=== PATIENT | male | born 1935 | race Caucasian/White ===

== ENCOUNTER 2016-11-08 06:47 | Day surgery (SDC) | payer MEDICARE, BC ==
[2016-11-08] MEDS ORDERED: Povidone-Iodine 5% Sterile Ophth Soln 30 ML Bottle EYELF ONE ×2 (07:00→08:19)
[2016-11-08] MEDS ORDERED: Proparacaine 0.5% Ophth Soln 15 ML Bottle EYELF ONE (07:00)
[2016-11-08] MEDS ORDERED: Ondansetron 4 MG/2 ML SDV IVPUSH PRN (07:00)
[2016-11-08] MEDS ORDERED: Cataract Ophth Solution EYELF ONE (07:00)
[2016-11-08] MEDS ORDERED: Sodium Chloride 0.9% 10 ML Syringe FLUSH PRN (07:00)
[2016-11-08] MEDS ORDERED: Phenylephrine 10% Ophth Soln 5 ML Bot EYELF ONE (07:00)
[2016-11-08] MEDS ORDERED: Timolol Maleate 0.5% Ophth Soln 5 ML Bottle EYELF ONE (07:00)
[2016-11-08] MEDS ORDERED: Acetaminophen 325 MG Tab PO PRN (07:00)
[2016-11-08] MEDS ORDERED: Phenylephrine 10% Ophth Soln 5 ML Bot EYELF PRN (07:00)
[2016-11-08] MEDS ORDERED: Moxifloxacin 0.5% Ophth Soln 3 ML Bottle EYELF ONE (07:00)
[2016-11-08] MEDS ORDERED: Dexamethasone 4 MG/ML SDV ONE (07:11)
[2016-11-08] MEDS ORDERED: Midazolam 1 MG/ML 2 ML SDV ONE (07:11)
[2016-11-08] MEDS ORDERED: Tetracaine HCl/PF 0.5% 4 ML Bottle EYELF ONE (08:19)
[2016-11-08] MEDS ORDERED: Dexamethasone/Neomycin/Polymyxin B Ophth Oint 3.5 GM Tube EYELF ONE (08:19)
[2016-11-08] MEDS ORDERED: Lidocaine 1% 30 ML SDV ONE (08:20)
[2016-11-08] MEDS ORDERED: Chondroitin Sulfate/Hyaluronate Sodium Ophth Inj 0.75 ML Syringe EYELF ONE (08:20)
[2016-11-08] MEDS ORDERED: Apraclonidine 0.5% Ophth Soln 5 ML Bot EYELF ONE (08:20)
[2016-11-08] MEDS ORDERED: Vancomycin 500 MG SDV EYELF ONE (08:21)
[2016-11-08] MEDS ORDERED: Balanced Salt Solution Ophth Irrig 500 ML Bottle IOCULAR ONE (08:21)
--- NOTE | 2016-11-08 10:33 | OR ---
DATE: 11/08/2016 PREOPERATIVE DIAGNOSES: Complex cataract, left eye. Small pupil, Malyugin ring. PREOPERATIVE DIAGNOSES: Complex cataract, left eye. Small pupil, Malyugin ring. INDICATION: Mr. Angela was seen in the clinic with complaints of blurred vision. Clinical examination revealed visually significant cataract. He has difficulty reading and difficulty with bright lights and glare. I explained options. I offered cataract surgery, and I explained risks preoperatively including the potential for infection, retinal detachment, loss of vision, need for additional surgery, and risks associated with anesthesia. He is symptomatic and requested surgery. He requested a monofocal implant. OPERATIVE DESCRIPTION: After informed consent was obtained. The risks, benefits, and alternatives were explained, the patient was brought to the OR and topical anesthesia was administered. He was prepped and draped in a sterile fashion. Attention was placed on the left eye. A sterile lid speculum was placed into the left eye to allow operative exposure. A full-thickness paracentesis was then made temporally. Preservative-free lidocaine followed by viscoelastic was injected into the anterior chamber. A 2.75 mm incision was then made temporally. Pupil was noted to be small, approximately 4 mm. Malyugin ring was inserted to expand the pupil to approximately 6 mm. Bent needle cystotome was then used to create a small gianna in the anterior capsule. A 360 degree curvilinear capsulorrhexis was created. Nucleus was hydrodissected, hydrodelineated, decompressed centrally, rotated and noted to be free of any adhesions. The nucleus was then removed using a quick chop technique at the iris plane. Following the nucleus removal, the remaining cortical material was removed using the I and A handpiece. Additional viscoelastic was injected into the capsular bag. The intra-ocular lens was inserted. The Malyugin ring was then removed. The remaining viscoelastic was then aspirated from both the anterior and posterior chamber. Wound and paracentesis sites were hydrated using balanced saline solution. A 0.1 mL of preservative-free vancomycin was injected intracamerally. Intra-ocular lens was inspected and noted to be clear and well-centered. Good red reflex was noted. Intra-ocular pressure was assessed and found to be in the high normal range. Wound and paracentesis sites were Luther negative. Postoperative medications were administered. Sterile patch and shield was placed over the eye. Patient was awakened from light sedation and transported to the postoperative recovery area having tolerated the procedure well. No complications occurred. [facility] /[id number]
[2016-11-08 11:13] VITALS: BP 131/75
== END 2016-11-08 09:24 | disposition home or self-care (01) ==
LOC: DL.SDS 06:47
PROVIDERS: ATTEND Ophthalmology
DX: H26.9 Unspecified cataract (principal); Z88.8 Allergy status to other drugs, medicaments and biological substances; Z98.890 Other specified postprocedural states; Z96.641 Presence of right artificial hip joint; Z79.899 Other long term (current) drug therapy; Z87.891 Personal history of nicotine dependence
CPT/HCPCS: 66984; A9270; C1780; J3370; J7050; 00142

== ENCOUNTER 2016-11-13 09:35 | Emergency (ER) | payer MEDICARE, BC ==
--- NOTE | 2016-11-13 09:43 | EDM.PDOC ---
ED HPI Trauma - General Chief Complaint: Lower Extremity Injury/Pain Stated Complaint: [id number] FELL ON CEMENT BROKE HIP? Time Seen by Provider: 11/13/16 09:38 Source: Reports: Patient, Old records, RN, RN notes reviewed History Limitations: Reports: No limitations - History of Present Illness INITIAL COMMENTS - FREE TEXT/NARRATIVE: Arrives from home by POV with c/o right hip pain sustained last night from a ground level fall. Pt tripped and lost his balance. He denies lightheadedness or syncope. Denies any other injury. Pt ambulated into the hospital/ED dept. but reports hip pain is worse with wt bearing. Pain is partially relieved with rest. Rates pain 6/10. Pt took a hydrocodone this morning and got some relief. Denies head injury, or any other injury. Symptom Onset Date: 11/12/16 Occurred When: yesterday Occurred Where: home Method of Injury: fall Severity: moderate Pain/Injury Location: Reports: lower extremity, right Consciousness: Reports: no loss of consciousness, remembers incident Associated Symptoms: Reports: no other symptoms Allergies/ADRs: Allergies lorazepam [From Ativan] Allergy (Verified 11/08/16 07:16) Confusion morphine Allergy (Verified 11/08/16 07:16) Confusion oxybutynin Allergy (Verified 11/08/16 07:16) Cannot Remember Home Medications: Ambulatory Orders Omeprazole [Prilosec] 20 mg PO DAILY 10/03/13 [Confirmed 11/08/16] Simvastatin [Zocor] 40 mg PO BEDTIME 10/03/13 [Confirmed 11/08/16] Tamsulosin [Flomax] 0.4 mg PO DAILY 10/03/13 [Confirmed 11/08/16] Bicalutamide [Casodex] 1 tab PO DAILY 08/17/15 [Confirmed 11/08/16] Docusate Sodium/Sennosides [Senna Plus] 2 tab PO BEDTIME #30 tablet 08/18/15 [ Confirmed 11/08/16] Acetaminophen/HYDROcodone [[place] 325-10 MG] 1 tab PO Q6H PRN 11/07/16 [ Confirmed 11/08/16] Escitalopram Oxalate [Lexapro] 1 tab PO DAILY 11/07/16 [Confirmed 11/08/16] Vhdq-[id number]-[id number] [Cataract Opthalmic Solution] 1 drop EYELF QID 11/07/16 [ Confirmed 11/08/16] Ciprofloxacin HCl [Cipro] 1 tab PO BID 11/08/16 [Confirmed 11/08/16] Past Medical History HEENT History: Reports: Cataract, Impaired vision, Other (see below) Other HEENT History: wears glasses Cardiovascular History: Reports: High cholesterol Respiratory History: Reports: None Gastrointestinal History: Reports: Chronic constipation, GERD Genitourinary History: Reports: BPH, UTI, recurrent, Other (see below) Other Genitourinary History: dilalation of urethra Musculoskeletal History: Reports: Back pain, chronic, Fracture Other Musculoskeletal History: left femur surgery Neurological History: Reports: None Psychiatric History: Reports: Depression Endocrine/Metabolic History: Reports: None Hematologic History: Reports: None Immunologic History: Reports: None Oncologic (Cancer) History: Reports: Prostate Dermatologic History: Reports: None - Infectious Disease History Infectious Disease History: Reports: Chicken pox, Measles, Mumps, Other (see below) - Past Surgical History Head Surgeries/Procedures: Reports: None HEENT Surgical History: Reports: None Cardiovascular Surgical History: Reports: None GI Surgical History: Reports: Colonoscopy Other Male Surgeries/Procedures: prostate problems Musculoskeletal Surgical History: Reports: Other (see below) Other Musculoskeletal Surgeries/Procedures:: back surg, R) hip joint replacement Social & Family History - Family History Family Medical History: Noncontributory Other Hematologic Family History: mother of cerebral aneurysm - Tobacco Use Smoking Status *Q: Former Smoker Years of Tobacco use: 20 Packs/Tins Daily: 0.5 Used Tobacco, but Quit: Yes Month Tobacco Last Used: when he was 41 years old Second Hand Smoke Exposure: No - Caffeine Use Caffeine Use: Reports: Coffee, Soda - Alcohol Use Days Per Week of Alcohol Use: 0 - Recreational Drug Use Recreational Drug Use: No - Living Situation & Occupation Occupation: retired Review of Systems - Review of Systems Review Of Systems: ROS reveals no pertinent complaints other than HPI. Trauma Exam - Physical Exam Exam: See Below Exam Limited By: No limitations General Appearance: Reports: alert, WD/WN, no apparent distress Head: Reports: atraumatic, normocephalic Ears: Reports: normal external exam, hearing grossly normal Nose: Reports: normal inspection Throat/Mouth: Reports: Normal voice, No airway compromise Neck: Reports: non-tender, full range of motion, normal alignment, normal inspection Respiratory Exam: Reports: no respiratory distress, lungs clear, normal breath sounds, no accessory muscle use, chest non-tender Cardiovascular: Reports: regular rate, rhythm GI/Abdominal: Reports: normal bowel sounds, soft, non tender, no distention (Male) Exam: Deferred Rectal (Males) Exam: Deferred Back: Reports: decreased range of motion (chronic/stable per pt.). Denies: CVA tenderness (R), CVA tenderness (L), paraspinal tenderness, vertebral tenderness Extremities: Reports: pelvis stable, pain with movement, tenderness (to palpation at Rt lateral hip region, no visible bruising or swelling; skin is intact.), other (able to bear wt). 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, no motor/sensory deficits, alert , normal mood/affect, oriented x 3 Skin: Reports: Normal color, Warm/dry - [place] Coma Score Best Eye Response ([place]): (4) open spontaneously Best Verbal Response ([place]): (5) oriented Best Motor Response ([place]): (6) obeys commands [place] Total: 15 Course - Vital Signs Last Recorded V/S: Last Vital Signs Temp 36.1 C 11/13/16 09:46 Pulse 76 11/13/16 09:46 Resp 16 11/13/16 09:46 BP 129/88 11/13/16 09:46 Pulse Ox 96 11/13/16 09:46 - Orders/Labs/Meds Orders: Active Orders 24 hr Category Date Time Status Hip Min 2V or 3V w Pelvis Rt [CR] Stat Exams 11/13/16 09:48 Ordered - Radiology Interpretation Free Text/Narrative:: Xray Rt hip & pelvis: no acute fractures, prosthetic Rt hip; see Rad. report. Departure - Departure Time of Disposition: 10:03 Disposition: Home, Self-Care 01 Condition: good Clinical Impression: Fall as cause of accidental injury at home as place of occurrence Contusion of right hip Qualifiers: Encounter type: initial encounter Qualified Code(s): S70.01XA - Contusion of right hip, initial encounter Instructions: Hip Pointer, Nasc-td-Iqqq, Hip Pain Forms: ED Department Discharge Additional Instructions: Activity as tolerated. Rest, and use ice packs to area of right hip pain. Follow up in clinic with your doctor if not improving in 7 to 10 days. - My Orders Last 24 Hours: My Active Orders 11/13/16 09:48 Hip Min 2V or 3V w Pelvis Rt [CR] Stat - Assessment/Plan Last 24 Hours: My Active Orders 11/13/16 09:48 Hip Min 2V or 3V w Pelvis Rt [CR] Stat
[2016-11-13 09:48] VITALS: BP 129/88
--- NOTE | 2016-11-13 11:49 | CR ---
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 Femoral and acetabular components of the total prosth esis satisfactorily "seated". No sign of acute pelvic or either hip fracture/dislocation.
== END 2016-11-13 10:10 | disposition home or self-care (01) ==
LOC: DL.ED 09:35
DX: S70.01XA Contusion of right hip, initial encounter (principal); E78.00 Pure hypercholesterolemia, unspecified; F32.9 Major depressive disorder, single episode, unspecified; Z87.440 Personal history of urinary (tract) infections; Z88.5 Allergy status to narcotic agent; Z88.8 Allergy status to other drugs, medicaments and biological substances; Z96.641 Presence of right artificial hip joint; Z87.891 Personal history of nicotine dependence; W01.0XXA Fall on same level from slipping, tripping and stumbling without subsequent striking against object, initial encounter; Y92.009 Unspecified place in unspecified non-institutional (private) residence as the place of occurrence of the external cause
CPT/HCPCS: 99282; 99283

== ENCOUNTER 2016-11-29 08:11 | Day surgery (SDC) | payer MEDICARE, BC ==
[2016-11-29] MEDS ORDERED: Phenylephrine 10% Ophth Soln 5 ML Bot EYERT ONE (08:30)
[2016-11-29] MEDS ORDERED: Cataract Ophth Solution EYERT ONE (08:30)
[2016-11-29] MEDS ORDERED: Acetaminophen 325 MG Tab PO PRN (08:30)
[2016-11-29] MEDS ORDERED: Timolol Maleate 0.5% Ophth Soln 5 ML Bottle EYERT ONE (08:30)
[2016-11-29] MEDS ORDERED: Proparacaine 0.5% Ophth Soln 15 ML Bottle EYERT ONE (08:30)
[2016-11-29] MEDS ORDERED: Sodium Chloride 0.9% 10 ML Syringe FLUSH PRN (08:30)
[2016-11-29] MEDS ORDERED: Ondansetron 4 MG/2 ML SDV IVPUSH PRN (08:30)
[2016-11-29] MEDS ORDERED: Moxifloxacin 0.5% Ophth Soln 3 ML Bottle EYERT ONE (08:30)
[2016-11-29] MEDS ORDERED: Phenylephrine 10% Ophth Soln 5 ML Bot EYERT PRN (08:30)
[2016-11-29] MEDS ORDERED: Povidone-Iodine 5% Sterile Ophth Soln 30 ML Bottle EYERT ONE ×2 (08:30→09:56)
[2016-11-29] MEDS ORDERED: Midazolam 1 MG/ML 2 ML SDV ONE (09:33)
[2016-11-29] MEDS ORDERED: Dexamethasone 4 MG/ML SDV ONE (09:33)
[2016-11-29] MEDS ORDERED: Dexamethasone/Neomycin/Polymyxin B Ophth Oint 3.5 GM Tube EYERT ONE (09:56)
[2016-11-29] MEDS ORDERED: Apraclonidine 0.5% Ophth Soln 5 ML Bot EYERT ONE (09:56)
[2016-11-29] MEDS ORDERED: Tetracaine HCl/PF 0.5% 4 ML Bottle EYERT ONE (09:57)
[2016-11-29] MEDS ORDERED: Balanced Salt Solution Ophth Irrig 500 ML Bottle IOCULAR ONE (09:57)
[2016-11-29] MEDS ORDERED: Lidocaine 1% 30 ML SDV ONE (09:57)
[2016-11-29] MEDS ORDERED: Diclofenac Sodium 0.1% Ophth Soln 5 ML Bottle EYERT ONE (09:57)
[2016-11-29] MEDS ORDERED: Chondroitin Sulfate/Hyaluronate Sodium Ophth Inj 0.75 ML Syringe EYERT ONE (09:58)
[2016-11-29] MEDS ORDERED: Vancomycin 500 MG SDV EYERT ONE (09:58)
--- NOTE | 2016-11-29 11:18 | OR ---
DATE: 11/29/2016 PREOPERATIVE DIAGNOSIS: Cataract, right eye. POSTOPERATIVE DIAGNOSIS: Cataract, right eye. PROCEDURE: Extracapsular cataract extraction with intraocular lens implant, right eye. ANESTHESIA: Topical/local MAC. COMPLICATIONS: None. INDICATION: Mr. Angela was seen in the clinic. He has complained of difficulty reading, difficulty with fine with bright lights, difficulty with glare. Clinical examination reveals visually significant mixed cataract. I explained options. I offered cataract surgery and I explained risks including but not limited to, infection, retinal detachment, loss of vision, need for additional surgery, and risks associated with anesthesia. We discussed implant options. He requested a monofocal implant. OPERATIVE DESCRIPTION: After informed consent was obtained and the risks, benefits, and alternatives were explained, the patient was brought to the operative suite and topical anesthesia was administered. The patient was then prepped and draped in the sterile fashion and attention was placed on the right eye. A sterile lid speculum was placed into the right eye to allow operative exposure. A full-thickness paracentesis was made in the temporal portion of the operative eye. Preservative-free lidocaine 0.1 mL was injected into the anterior chamber followed by viscoelastic. A full-thickness corneal incision was then made into the anterior chamber. A bent needle cystotome was used to create a small gianna in the anterior capsule. The capsulorrhexis forceps was then used to create a 360-degree curvilinear capsulorrhexis. The nucleus was then removed using a phacoemulsification handpiece and the remaining cortical material was then removed with irrigation and aspiration handpiece. Following removal of the cortical material, the capsular bag was then inspected and noted to be free of any holes or tears. Viscoelastic was then injected into the capsular bag and the intraocular lens was inserted into the capsular bag. No complications occurred. The viscoelastic material was then removed from both the anterior and posterior chambers and from behind the IOL. The lens and capsular bag were then reinspected. The IOL was well centered and the capsular bag intact. The wound and paracentesis sites were inspected and hydrated with balanced saline solution. Both were found to be self-sealing. The intraocular pressure was assessed digitally and found to be within normal range. A good red reflex was noted at the completion of the procedure. No complications occurred during the operation. At the completion of the procedure, Maxitrol, Voltaren, and Iopidine drops were placed into the operative eye. A sterile eye shield was placed over the operative eye and the patient was transported to the postoperative recovery area having tolerated the procedure well. Postoperative instructions were given along with a postoperative appointment. The patient was advised to call with any questions or concerns. [facility] /[id number]
[2016-11-29 13:11] VITALS: BP 178/82
[2016-11-29] MEDS ORDERED: Dexamethasone 4 MG/ML SDV IV ONE (13:19)
[2016-11-29] MEDS ORDERED: Midazolam 1 MG/ML 2 ML SDV IV ONE (13:19)
--- NOTE | 2016-11-30 08:00 | OR ---
DATE: 11/29/2016 PREOPERATIVE DIAGNOSIS: Visually significant cataract, right eye. POSTOPERATIVE DIAGNOSIS: Visually significant cataract, right eye. PROCEDURE: Complex cataract right eye with small pupil, Malyugin ring. INDICATION: Mr. Angela was seen in the clinic. Clinical examination revealed visually significant cataract. I explained options. I offered cataract surgery, and I explained risks preoperatively including but not limited to, infection, retinal detachment, loss of vision, need for additional surgery, and risks associated with anesthesia. We discussed implant options. He requested a monofocal implant. OPERATIVE DESCRIPTION: After informed consent was obtained. The risks, benefits, and alternatives were explained, the patient was brought to the OR and topical anesthesia was administered. He was prepped and draped in a sterile fashion. Attention was placed on the right eye. A sterile lid speculum was placed into the right eye to allow operative exposure. A full-thickness paracentesis was then made temporally. Preservative-free lidocaine followed by viscoelastic was injected into the anterior chamber. A 2.75 mm corneal incision was then made temporally. The pupil was noted to be small, Malyugin ring was inserted to expand the pupil to approximately 5.5 mm. Bent needle cystotome was then used to create a small gianna in the anterior capsule. A 5 mm curvilinear capsulorrhexis was created. Nucleus was then hydrodissected and hydrodelineated. Nucleus was decompressed centrally and rotated, noted to be free of any adhesions. Nucleus was then removed using the phacoemulsification handpiece in a quick chop technique. Remaining cortical material was removed using the irrigation, aspiration handpiece. Additional viscoelastic was injected into the capsular bag. The intraocular lens was inserted. The Malyugin ring was then removed. The remaining viscoelastic was then aspirated from both the anterior and posterior chamber. Wound and paracentesis sites were hydrated. A 0.1 mL of preservative-free vancomycin was injected intracamerally. Intra-ocular lens was inspected and noted to be clear and well-centered. Good red reflex was noted. Wound and paracentesis sites were Luther negative. Intra- ocular pressure was assessed digitally and found to be in the high normal range. Postoperative medications were administered. Sterile patch and shield was placed over the eye. The patient was awakened from light sedation and transported to the postoperative recovery area having tolerated the procedure well. No complications occurred. [facility] /[id number]
== END 2016-11-29 11:10 | disposition home or self-care (01) ==
LOC: DL.SDS 08:11
PROVIDERS: ATTEND Ophthalmology
DX: H26.9 Unspecified cataract (principal); Z88.8 Allergy status to other drugs, medicaments and biological substances; Z98.890 Other specified postprocedural states; Z96.641 Presence of right artificial hip joint; Z87.891 Personal history of nicotine dependence
CPT/HCPCS: 00142; 66984; A9270; J1100; J2250; J3370; J7050; C1780

== ENCOUNTER 2017-02-06 10:52 | Emergency (ER) | payer MEDICARE, BC ==
--- NOTE | 2017-02-06 11:56 | EDM.PDOC ---
ED HPI GENERAL MEDICAL PROBLEM - General Chief Complaint: General Stated Complaint: CAN'T PEE OR ANYTHING Time Seen by Provider: 02/06/17 11:35 Source of Information: Reports: Patient History Limitations: Reports: No Limitations - History of Present Illness INITIAL COMMENTS - FREE TEXT/NARRATIVE: This 81 yo male patient reports to the ED with continued and increased pelvic pain. The patient reports his pain got much worse today. The patient has been seen by several providers for similar symptoms. The patient is seeing Dr. Martinez, Mia Marte, JUANA and a urologist for these symptoms in the past. The patient reports he has not been able to urinate in the past hour. The patient reports some frustration with his continuing symptoms. The patient reports he started on Oxycontin last week and was started on Augmentin yesterday due to urinalysis results. Onset: Today Onset Date: 02/06/17 Onset Time: 06:00 Duration: Hour(s):, Constant Location: Reports: Abdomen, Pelvis Quality: Reports: Ache, Sharp Severity: Severe Improves with: Reports: None Worsens with: Reports: None Associated Symptoms: Reports: No Other Symptoms Left Pelvic Pain Score (Numeric/FACES): 5 - Related Data Allergies Allergy/AdvReac Type Severity Reaction Status Date / Time lorazepam [From Ativan] Allergy Confusion Verified 11/29/16 09:06 morphine Allergy Confusion Verified 11/29/16 09:06 oxybutynin Allergy Cannot Verified 11/29/16 09:06 Remember Home Meds: Home Meds Omeprazole [Prilosec] 20 mg PO DAILY 10/03/13 [History] Simvastatin [Zocor] 40 mg PO BEDTIME 10/03/13 [History] Tamsulosin [Flomax] 0.4 mg PO BEDTIME 10/03/13 [History] Bicalutamide [Casodex] 1 tab PO DAILY 08/17/15 [History] Docusate Sodium/Sennosides [Senna Plus] 2 tab PO BEDTIME #30 tablet 08/18/15 [Rx ] Escitalopram Oxalate [Lexapro] 1 tab PO DAILY 11/07/16 [History] Qsjs-Ufqr-Kmamh [Cataract Opthalmic Solution] 1 drop EYELF QID 11/07/16 [History ] Hydrocodone/Acetaminophen [[place] 5-325 Tablet] 1 each PO Q6HR PRN 11/28/16 [ History] Sulfamethoxazole/Trimethoprim [Sulfamethoxazole-Tmp Ds Tablet] 1 tab PO BID [History] Past Medical History HEENT History: Reports: Cataract, Impaired Vision, Other (See Below) Other HEENT History: wears glasses Cardiovascular History: Reports: High Cholesterol Respiratory History: Reports: None Gastrointestinal History: Reports: Chronic Constipation, GERD Genitourinary History: Reports: BPH, UTI, Recurrent, Other (See Below) Other Genitourinary History: dilalation of urethra Musculoskeletal History: Reports: Back Pain, Chronic, Fracture Other Musculoskeletal History: left femur surgery Neurological History: Reports: None Psychiatric History: Reports: Depression Endocrine/Metabolic History: Reports: None Hematologic History: Reports: None Immunologic History: Reports: None Oncologic (Cancer) History: Reports: Prostate Dermatologic History: Reports: None - Infectious Disease History Infectious Disease History: Reports: Chicken Pox, Measles, Mumps, Other (See Below) - Past Surgical History Head Surgeries/Procedures: Reports: None HEENT Surgical History: Reports: None, Cataract Surgery Cardiovascular Surgical History: Reports: None GI Surgical History: Reports: Colonoscopy Other Male Surgeries/Procedures: prostate problems Musculoskeletal Surgical History: Reports: Other (See Below) Other Musculoskeletal Surgeries/Procedures:: back surg, R) hip joint replacement Social & Family History - Family History Family Medical History: Noncontributory Other Hematologic Family History: mother of cerebral aneurysm - Tobacco Use Smoking Status *Q: Never Smoker Years of Tobacco use: 20 Packs/Tins Daily: 0.5 Used Tobacco, but Quit: Yes Month Tobacco Last Used: when he was 41 years old Second Hand Smoke Exposure: No - Caffeine Use Caffeine Use: Reports: Coffee, Tea - Alcohol Use Days Per Week of Alcohol Use: 0 - Recreational Drug Use Recreational Drug Use: No - Living Situation & Occupation Occupation: Retired ED ROS GENERAL - Review of Systems Review Of Systems: ROS reveals no pertinent complaints other than HPI. ED EXAM, GENERAL - Physical Exam Exam: See Below Exam Limited By: No Limitations General Appearance: Alert, WD/WN, No Apparent Distress Eye Exam: Bilateral Eye: EOMI, Normal Inspection, PERRL Ears: Normal External Exam, Normal Canal, Hearing Grossly Normal, Normal TMs Nose: Normal Inspection, Normal Mucosa, No Blood Throat/Mouth: Normal Inspection, Normal Lips, Normal Teeth, Normal Gums, Normal Oropharynx, Normal Voice, No Airway Compromise Head: Atraumatic, Normocephalic Neck: Normal Inspection, Supple, Non-Tender, Full Range of Motion Respiratory/Chest: No Respiratory Distress, Lungs Clear, Normal Breath Sounds, No Accessory Muscle Use, Chest Non-Tender Cardiovascular: Normal Peripheral Pulses, Regular Rate, Rhythm, No Edema, No Gallop, No JVD, No Murmur, No Rub GI/Abdominal: Normal Bowel Sounds, Tender (lower abdomen) (Male) Exam: Deferred Rectal (Males) Exam: Deferred Back Exam: Normal Inspection, Full Range of Motion, NT Extremities: Other (the patient has diffuse pelvic pain) Neurological: Alert, Oriented, CN II-XII Intact, Abnormal Gait Psychiatric: Anxious, Depressed Mood Skin Exam: Warm, Dry, Intact, Normal Color, No Rash Lymphatic: No Adenopathy Course - Vital Signs Last Recorded V/S: Last Vital Signs Temp 36.4 C 02/06/17 11:26 Pulse 88 02/06/17 13:02 Resp 18 02/06/17 13:02 BP 119/72 02/06/17 13:02 Pulse Ox 98 02/06/17 13:02 Departure - Departure Time of Disposition: 13:25 Disposition: Home, Self-Care 01 Condition: Fair Clinical Impression: UTI (urinary tract infection) Qualifiers: Urinary tract infection type: acute cystitis Hematuria presence: without hematuria Qualified Code(s): N30.00 - Acute cystitis without hematuria - Discharge Information Instructions: Urinary Tract Infection, Adult Forms: ED Department Discharge Care Plan Goals: The patient and family were advised of the ultrasound results during the visit. The patient was encouraged to continue to take his Amoxicillin as prescribed. The patient has a follow-up appointment with Mia Marte on for continued evaluation and management. If the patient has any additional symptoms or concerns, the patient should either visit his primary care facility or return to the emergency department.
[2017-02-06 13:02] VITALS: BP 119/72
--- NOTE | 2017-02-06 13:14 | US ---
Clinical history: 81-year-old male with history of known prostate cancer (radiation seeds); complain ing of persistent lower abdominal and suprapubic pain; who "hasn't peed for one hour". Started antib iotic therapy yesterday for a "urinary tract infection". Recent radionuclide bone scan and MRI of pelvis reportedly "unremarkable". Urinary retention? Interpretation: Mild uniformly thickened bladder wall. Symmetrically distended, small volume, urinary bladder without sign mucosal wall mass or dependent i ntraluminal echogenic "shadowing" urinary bladder stone. Small 12 mm diameter diverticulum base of t he urinary bladder laterally, on the right. Normal ureteral "jets" identified bilaterally.
== END 2017-02-06 13:33 | disposition home or self-care (01) ==
LOC: DL.ED 10:52
DX: N30.00 Acute cystitis without hematuria (principal); E78.00 Pure hypercholesterolemia, unspecified; H54.7 Unspecified visual loss; K21.9 Gastro-esophageal reflux disease without esophagitis; F32.9 Major depressive disorder, single episode, unspecified; Z79.899 Other long term (current) drug therapy; Z88.5 Allergy status to narcotic agent; Z88.8 Allergy status to other drugs, medicaments and biological substances; Z98.49 Cataract extraction status, unspecified eye; Z87.440 Personal history of urinary (tract) infections
CPT/HCPCS: 76857; 99283

== ENCOUNTER 2017-02-12 10:35 | Inpatient (IN) | payer MEDICARE, BC ==
--- NOTE | 2017-02-12 11:07 | EDM.PDOC ---
ED HPI GENERAL MEDICAL PROBLEM - General Chief Complaint: Abdominal Pain Stated Complaint: CONFUSSED, DEHYDRATION, CAN HARDLY WALK Time Seen by Provider: 02/12/17 10:45 Source of Information: Reports: Patient, Family History Limitations: Reports: No Limitations - History of Present Illness INITIAL COMMENTS - FREE TEXT/NARRATIVE: This 81 yo male patient reports to the ED with continued pelvic pain. The patient reports he continues to have pain despite his recent changes in medications and treatments. The patient has been too weak to take care of himself. The patient reports he has pain in the posterior pelvic that wraps around to the front of his pelvis. The patient's family reports the patient has refused to take any of his medications other than his pain medications. The patient is currently being seen by Mia Marte ([facility] in [place]) , Dr. Youngblood ([facility] in [place]) and Dr. Curran (Oncology in [place]). The patient had a bone scan done 1 1/2 weeks ago which was read as normal by radiologist, but was read as abnormal by Dr. Curran. The patient has been seen numerous times in both the clinic and ED over the past 2 weeks. At this time, the patient's family reports that they do not think the patient can take care of himself due to both pain as well as with his progressive dementia. The family reports the patient is very confused (especially in the evenings). The patient's family reports that the patient was attempting to make phone calls with the TV remote and change the channel with the phone. The memory issues have not gotten any worse with the recent increase in pain medications. The patient and family are supposed to be looking at an assisted care center today, but the family does not think this will be enough care with his current condition. Onset: Gradual Duration: Week(s):, Constant, Getting Worse Location: Reports: Pelvis Quality: Reports: Ache, Sharp Severity: Severe Improves with: Reports: Medication (pain medication) Worsens with: Reports: Movement Context: Reports: Other Associated Symptoms: Reports: Confusion (especially in the evenings), Weakness Treatments DISEASE MANAGEMENT NURSE: Reports: Other Medication(s) Rectal Pain Score (Numeric/FACES): 5 - Related Data Allergies Allergy/AdvReac Type Severity Reaction Status Date / Time lorazepam [From Ativan] Allergy Confusion Verified 11/29/16 09:06 morphine Allergy Confusion Verified 11/29/16 09:06 oxybutynin Allergy Cannot Verified 11/29/16 09:06 Remember Home Meds: Home Meds Omeprazole [Prilosec] 20 mg PO DAILY 10/03/13 [History] Tamsulosin [Flomax] 0.4 mg PO BEDTIME 10/03/13 [History] Bicalutamide [Casodex] 1 tab PO DAILY 08/17/15 [History] Docusate Sodium/Sennosides [Senna Plus] 2 tab PO BEDTIME #30 tablet 08/18/15 [Rx ] Escitalopram Oxalate [Lexapro] 1 tab PO DAILY 11/07/16 [History] Hydrocodone/Acetaminophen [[place] 5-325 Tablet] 1 each PO Q6HR PRN 11/28/16 [ History] oxyCODONE HCl [Oxycontin] 1 tab PO BID 02/12/17 [History] Past Medical History HEENT History: Reports: Cataract, Impaired Vision, Other (See Below) Other HEENT History: wears glasses Cardiovascular History: Reports: High Cholesterol Respiratory History: Reports: None Gastrointestinal History: Reports: Chronic Constipation, GERD Genitourinary History: Reports: BPH, UTI, Recurrent, Other (See Below) Other Genitourinary History: dilalation of urethra Musculoskeletal History: Reports: Back Pain, Chronic, Fracture Other Musculoskeletal History: left femur surgery Neurological History: Reports: None Psychiatric History: Reports: Depression Endocrine/Metabolic History: Reports: None Hematologic History: Reports: None Immunologic History: Reports: None Oncologic (Cancer) History: Reports: Prostate Dermatologic History: Reports: None - Infectious Disease History Infectious Disease History: Reports: Chicken Pox, Measles, Mumps, Other (See Below) - Past Surgical History Head Surgeries/Procedures: Reports: None HEENT Surgical History: Reports: None, Cataract Surgery Cardiovascular Surgical History: Reports: None GI Surgical History: Reports: Colonoscopy Other Male Surgeries/Procedures: prostate problems Musculoskeletal Surgical History: Reports: Other (See Below) Other Musculoskeletal Surgeries/Procedures:: back surg, R) hip joint replacement Social & Family History - Family History Family Medical History: Noncontributory Other Hematologic Family History: mother of cerebral aneurysm - Tobacco Use Smoking Status *Q: Never Smoker Years of Tobacco use: 20 Packs/Tins Daily: 0.5 Used Tobacco, but Quit: Yes Month Tobacco Last Used: when he was 41 years old Second Hand Smoke Exposure: No - Caffeine Use Caffeine Use: Reports: Coffee, Tea - Alcohol Use Days Per Week of Alcohol Use: 0 - Recreational Drug Use Recreational Drug Use: No - Living Situation & Occupation Occupation: Retired ED ROS GENERAL - Review of Systems Review Of Systems: ROS reveals no pertinent complaints other than HPI. ED EXAM, GENERAL - Physical Exam Exam: See Below Exam Limited By: No Limitations General Appearance: Alert, WD/WN, Moderate Distress, Thin Eye Exam: Bilateral Eye: EOMI, Normal Inspection, PERRL Ears: Normal External Exam, Normal Canal, Hearing Grossly Normal, Normal TMs Nose: Normal Inspection, Normal Mucosa, No Blood Throat/Mouth: Normal Inspection, Normal Lips, Normal Teeth, Normal Gums, Normal Oropharynx, Normal Voice, No Airway Compromise Head: Atraumatic, Normocephalic Respiratory/Chest: No Respiratory Distress, Lungs Clear, Normal Breath Sounds, No Accessory Muscle Use, Chest Non-Tender Cardiovascular: Normal Peripheral Pulses, Regular Rate, Rhythm, No Edema, No Gallop, No JVD, No Murmur, No Rub GI/Abdominal: Normal Bowel Sounds, Soft, Tender (lower abdomen and pelvis) (Male) Exam: Deferred Rectal (Males) Exam: Deferred Back Exam: Normal Inspection, Full Range of Motion, NT Extremities: Normal Inspection, Normal Range of Motion, Non-Tender, Normal Capillary Refill, No Pedal Edema Neurological: Alert, Oriented, CN II-XII Intact, Normal Cognition, Normal Gait, Normal Reflexes, No Motor/Sensory Deficits Psychiatric: Normal Affect, Normal Mood Skin Exam: Warm, Dry, Intact, Normal Color, No Rash Lymphatic: No Adenopathy Course - Vital Signs Last Recorded V/S: Last Vital Signs Temp 36.9 C 02/12/17 12:07 Pulse 84 02/12/17 12:07 Resp 18 02/12/17 12:07 BP 140/56 L 02/12/17 12:07 Pulse Ox 91 L 02/12/17 12:07 - Orders/Labs/Meds Orders: Active Orders 24 hr Category Date Time Status CULTURE URINE [RM] Stat Lab 02/12/17 12:08 Ordered Labs: Laboratory Tests 02/12/17 02/12/17 02/12/17 Range/Units 11:04 11:04 11:04 WBC 11.2 H (5.0-10.0) 10^3/uL RBC 4.08 L (4.6-6.2) 10^6/uL Hgb 11.5 L (14.0-18.0) g/dL Hct 35.3 L (40.0-54.0) % MCV 86.5 (80-100) fL MCH 28.2 (27.0-34.0) pg MCHC 32.6 L (33.0-35.0) g/dL Plt Count 299 (150-450) 10^3/uL Neut % (Auto) 82.8 H (42.2-75.2) % Lymph % (Auto) 8.1 L (20.5-50.1) % [place] % (Auto) 7.3 (2-8) % Eos % (Auto) 1.5 (1.0-3.0) % Baso % (Auto) 0.3 (0.0-1.0) % Sodium 135 (135-145) mmol/L Potassium 4.0 (3.6-5.0) mmol/L Chloride 97 L (101-111) mmol/L Carbon Dioxide 25.0 (21.0-31.0) mmol/L Anion Gap 17.0 BUN 15 (7-18) mg/dL Creatinine 0.9 (0.6-1.3) mg/dL Est Cr Clr Drug Dosing 65.46 mL/min Estimated GFR (MDRD) > 60 BUN/Creatinine Ratio 16.66 Glucose 152 H (74-105) mg/dL Lactic Acid 1.1 (0.5-2.2) mmol/L Calcium 8.9 (8.4-10.2) mg/dl Magnesium 1.8 (1.8-2.5) mg/dL Total Bilirubin 0.9 (0.2-1.0) mg/dL AST 20 (10-42) IU/L ALT 23 (10-60) IU/L Alkaline Phosphatase 72 (42-121) IU/L Total Protein 7.1 (6.7-8.2) g/dl Albumin 2.6 L (3.2-5.5) g/dl Globulin 4.5 Albumin/Globulin Ratio 0.58 Urine Color (YELLOW) Urine Appearance (CLEAR) Urine pH (5.0-9.0) Ur Specific [place] (1.005-1.030) Urine Protein (NEGATIVE) Urine Glucose (UA) (NEGATIVE) Urine Ketones (NEGATIVE) Urine Occult Blood (NEGATIVE) Urine Nitrite (NEGATIVE) Urine Bilirubin (NEGATIVE) Urine Urobilinogen (0.2-1.0) mg/dL Ur Leukocyte Esterase (NEGATIVE) Urine RBC /HPF Urine WBC (0-5/HPF) /HPF Ur Epithelial Cells /HPF Amorphous Sediment (0/HPF) /HPF Urine Bacteria (0-FEW/HPF) /HPF Urine Mucus /LPF 02/12/17 Range/Units 11:07 WBC (5.0-10.0) 10^3/uL RBC (4.6-6.2) 10^6/uL Hgb (14.0-18.0) g/dL Hct (40.0-54.0) % MCV (80-100) fL MCH (27.0-34.0) pg MCHC (33.0-35.0) g/dL Plt Count (150-450) 10^3/uL Neut % (Auto) (42.2-75.2) % Lymph % (Auto) (20.5-50.1) % [place] % (Auto) (2-8) % Eos % (Auto) (1.0-3.0) % Baso % (Auto) (0.0-1.0) % Sodium (135-145) mmol/L Potassium (3.6-5.0) mmol/L Chloride (101-111) mmol/L Carbon Dioxide (21.0-31.0) mmol/L Anion Gap BUN (7-18) mg/dL Creatinine (0.6-1.3) mg/dL Est Cr Clr Drug Dosing mL/min Estimated GFR (MDRD) BUN/Creatinine Ratio Glucose (74-105) mg/dL Lactic Acid (0.5-2.2) mmol/L Calcium (8.4-10.2) mg/dl Magnesium (1.8-2.5) mg/dL Total Bilirubin (0.2-1.0) mg/dL AST (10-42) IU/L ALT (10-60) IU/L Alkaline Phosphatase (42-121) IU/L Total Protein (6.7-8.2) g/dl Albumin (3.2-5.5) g/dl Globulin Albumin/Globulin Ratio Urine Color Dark yellow (YELLOW) Urine Appearance Cloudy (CLEAR) Urine pH 7.0 (5.0-9.0) Ur Specific [place] 1.020 (1.005-1.030) Urine Protein 100 H (NEGATIVE) Urine Glucose (UA) Negative (NEGATIVE) Urine Ketones 15 H (NEGATIVE) Urine Occult Blood Large H (NEGATIVE) Urine Nitrite Negative (NEGATIVE) Urine Bilirubin Small H (NEGATIVE) Urine Urobilinogen 1.0 (0.2-1.0) mg/dL Ur Leukocyte Esterase Large H (NEGATIVE) Urine RBC 5-10 H /HPF Urine WBC >100 H (0-5/HPF) /HPF Ur Epithelial Cells Few /HPF Amorphous Sediment See note (0/HPF) /HPF Urine Bacteria Rare (0-FEW/HPF) /HPF Urine Mucus Few H /LPF Meds: Medications Discontinued Medications Generic Name Dose Route Start Last Admin Trade Name Freq PRN Reason Stop Dose Admin Ciprofloxacin 500 mg 02/12/17 12:15 Ciprofloxacin Hcl PO 02/12/17 12:16 ONETIME ONE Departure - Departure Time of Disposition: 12:22 Disposition: Admitted As Inpatient 67 Condition: Fair Clinical Impression: Pelvic pain in male UTI (urinary tract infection) Qualifiers: Urinary tract infection type: acute cystitis Hematuria presence: without hematuria Qualified Code(s): N30.00 - Acute cystitis without hematuria - Discharge Information Care Plan Goals: Discussed the examination, history and lab results with Dr. Del Rosario. Dr. Del Rosario accepted the patient for continued evaluation and management as an inpatient at [facility] in [place]. - My Orders Last 24 Hours: My Active Orders 02/12/17 12:08 CULTURE URINE [RM] Stat - Assessment/Plan Last 24 Hours: My Active Orders 02/12/17 12:08 CULTURE URINE [RM] Stat
[2017-02-12 11:30] LABS: CHLORIDE,CL 97 mmol/L (101-111); SODIUM,NA 135 mmol/L (135-145)
[2017-02-12] MEDS ORDERED: Ciprofloxacin 500 MG Tab PO ONE (12:15)
[2017-02-12] MEDS ORDERED: Acetaminophen 325 MG Tab PO PRN (14:23)
[2017-02-12] MEDS ORDERED: fentaNYL 100 MCG/2 ML SDV IVPUSH PRN (14:26)
[2017-02-12] MEDS ORDERED: Barium Sulfate w/v 2.1% Oral Susp 450 ML Bottle PO ONE (14:33)
[2017-02-12] MEDS ORDERED: Iopamidol 612 MG/ML 75 ML Bottle IVPUSH ONE (14:34)
--- NOTE | 2017-02-12 14:55 | PCM.HP ---
H&P History of Present Illness - General Date of Service: 02/12/17 Admit Problem/Dx: Admission Diagnosis/Problem Admission Diagnosis/Problem UTI, Urinary tract infectious disease Source of Information: Patient, Family, Provider - History of Present Illness Initial Comments - Free Text/Narative: The patient is a 81-year-old gentleman with a history of prostate cancer status post radiation, erectile dysfunction, urinary retention with episodic self- catheterization. The patient has frequent recurrent urinary tract infection. For the prostate cancer he is followed by Dr. HA in [place], rest of the urology appointments are with Dr. Nash in [place]. Last time he was seen at the end of November when he was treated for urinary tract infection with Cipro. The patient presented with pain in the anterior pelvis area. The pain is moderate to severe, worse with movements, present for at least 2 or 3 weeks prior to this presentation. No associated fever. No apparent trauma. 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 Prior pelvic ultrasound showed small volume urinary bladder without sign of mucosa wall mass. He has been treated with amoxicillin for a urinary tract infection starting on 06 February. He has been taking OxyContin and oxycodone without help. He denies fever. No urinary burning. Family has also noted increased confusion, disorientation. This is usually first by the evening. The patient has been living independently but family felt that this is not adequate anymore and they were looking into moving into an assisted living facility. Onset of Symptoms: Reports: Gradual (Over 2-3 weeks) Rectal Pain Score (Numeric/FACES): 5 Generalized Pain Score (Numeric/FACES): 5 - Related Data Allergies/Adverse Reactions: Allergies Allergy/AdvReac Type Severity Reaction Status Date / Time lorazepam [From Ativan] Allergy Confusion Verified 02/12/17 13:47 morphine Allergy Confusion Verified 02/12/17 13:47 oxybutynin Allergy Cannot Verified 02/12/17 13:47 Remember Home Medications: Home Meds Omeprazole [Prilosec] 20 mg PO DAILY 10/03/13 [History] Tamsulosin [Flomax] 0.4 mg PO BEDTIME 10/03/13 [History] Bicalutamide [Casodex] 1 tab PO DAILY 08/17/15 [History] Docusate Sodium/Sennosides [Senna Plus] 2 tab PO BEDTIME #30 tablet 08/18/15 [Rx ] Escitalopram Oxalate [Lexapro] 1 tab PO DAILY 11/07/16 [History] Hydrocodone/Acetaminophen [[place] 5-325 Tablet] 1 each PO Q6HR PRN 11/28/16 [ History] oxyCODONE HCl [Oxycontin] 1 tab PO BID 02/12/17 [History] Past Medical History HEENT History: Reports: Cataract, Impaired Vision, Other (See Below) Other HEENT History: wears glasses Cardiovascular History: Reports: High Cholesterol Respiratory History: Reports: None Gastrointestinal History: Reports: Chronic Constipation, GERD Genitourinary History: Reports: BPH, UTI, Recurrent, Other (See Below) Other Genitourinary History: dilalation of urethra Musculoskeletal History: Reports: Back Pain, Chronic, Fracture Other Musculoskeletal History: left femur surgery Neurological History: Reports: None Psychiatric History: Reports: Depression Endocrine/Metabolic History: Reports: None Hematologic History: Reports: None Immunologic History: Reports: None Oncologic (Cancer) History: Reports: Prostate Dermatologic History: Reports: None - Infectious Disease History Infectious Disease History: Reports: Chicken Pox, Measles, Mumps, Other (See Below) - Past Surgical History Head Surgeries/Procedures: Reports: None HEENT Surgical History: Reports: None, Cataract Surgery Cardiovascular Surgical History: Reports: None GI Surgical History: Reports: Colonoscopy Other Male Surgeries/Procedures: prostate problems Musculoskeletal Surgical History: Reports: Other (See Below) Other Musculoskeletal Surgeries/Procedures:: back surg, R) hip joint replacement Social & Family History - Family History Family Medical History: Noncontributory Other Hematologic Family History: mother of cerebral aneurysm - Tobacco Use Smoking Status *Q: Former Smoker Years of Tobacco use: 20 Packs/Tins Daily: 0.5 Used Tobacco, but Quit: Yes Month Tobacco Last Used: when he was 41 years old Second Hand Smoke Exposure: No - Caffeine Use Caffeine Use: Reports: Coffee, Tea - Alcohol Use Days Per Week of Alcohol Use: 0 - Recreational Drug Use Recreational Drug Use: No - Living Situation & Occupation Occupation: Retired H&P Review of Systems - Review of Systems: Review Of Systems: See Below General: Denies: Fever, Chills Pulmonary: Denies: Shortness of Breath Cardiovascular: Denies: Chest Pain Gastrointestinal: Reports: Anorexia, Decreased Appetite, Other (Anterior pelvic pain). Denies: Black Stool, Difficulty Swallowing, Vomiting Genitourinary: Denies: Dysuria, Frequency, Burning Psychiatric: Reports: Confusion (in the evening) Exam - Exam Exam: See Below - Vital Signs Vital Signs: Last Vital Signs Temp 36.9 C 02/12/17 13:32 Pulse 81 02/12/17 13:32 Resp 20 02/12/17 13:32 BP 155/68 H 02/12/17 13:32 Pulse Ox 95 02/12/17 13:32 Weight: 76.385 kg - Exam General: Alert, Oriented, Other (Poor historian) Neck: Supple Lungs: Clear to Auscultation, Normal Respiratory Effort Cardiovascular: Regular Rate, Regular Rhythm GI/Abdominal Exam: Normal Bowel Sounds, Soft, Tender, Other (Anterior pelvic tenderness). No: No Distention, No Abnormal Bruit (Male) Exam: No: Testicular Mass Extremities: No Pedal Edema Skin: Warm, Dry Neurological: Cranial Nerves Intact Neuro Extensive - Mental Status: Alert, Oriented x3, Normal Mood/Affect Psychiatric: Anxious - Patient Data Result Diagrams: 02/12/17 11:04 02/12/17 11:04 *Q Meaningful Use (ADM) - VTE *Q VTE Criteria *Q: - Stroke *Q Stroke Criteria *Q: - AMI *Q AMI Criteria *Q: - Problem List (1) Pelvic pain in male SNOMED Code(s): 78321272 ICD Code: R10.2 - PELVIC AND PERINEAL PAIN Status: Acute Current Visit: Yes Problem List Initiated/Reviewed/Updated: Yes Orders Last 24hrs: Active Orders 24 hr Category Date Time Status Patient Status [ADT] Routine ADT 02/12/17 14:23 Active Antiembolic Devices [RC] PER UNIT ROUTINE Care 02/12/17 14:25 Active Oxygen Therapy [RC] PRN Care 02/12/17 14:23 Active Peripheral IV Care [RC] . DIRECTED Care 02/12/17 14:25 Active VTE/DVT Education [RC] PER UNIT ROUTINE Care 02/12/17 14:23 Active Vital Signs [RC] Q4H Care 02/12/17 14:23 Active Regular Diet [DIET] Diet 02/12/17 Dinner Active CTA Abd Pelv w Cont [CT] Routine Exams 02/12/17 14:13 Ordered CULTURE BLOOD [BC] Stat Lab 02/12/17 14:37 Ordered CULTURE BLOOD [BC] Stat Lab 02/12/17 14:37 Ordered Acetaminophen [Tylenol] Med 02/12/17 14:23 Active 650 mg PO Q4H PRN Acetaminophen/oxyCODONE [Percocet 325-5 MG] Med 02/12/17 14:11 Active 1 tab PO Q4H PRN Belladonna/Opium [B & O Supprettes No. 16A] Med 02/12/17 21:00 Active 1 supp RECTAL BID Bicalutamide [Casodex] Med 02/13/17 09:00 Ordered 1 tab PO DAILY Ciprofloxacin in D5W [Cipro in D5W 400 MG/200 ML] 400 Med 02/12/17 21:00 Active mg Premix Bag 1 bag IV Q12HR Docusate Sodium/Sennosides [Senna Plus] Med 02/12/17 21:00 Active 2 tab PO BEDTIME Escitalopram [Lexapro] Med 02/13/17 09:00 Active 20 mg PO DAILY Heparin Sodium Med 02/12/17 22:00 Active 5,000 units SUBCUT Q8HR Omeprazole Med 02/13/17 06:00 Active 20 mg PO ACBRK Phenazopyridine [Urinary Pain Relief] Med 02/12/17 21:00 Active 95 mg PO TID Sodium Chloride 0.9% [Saline Flush] Med 02/12/17 14:23 Active 10 ml FLUSH ASDIRECTED PRN Tamsulosin [Flomax] Med 02/12/17 21:00 Active 0.4 mg PO BEDTIME Zolpidem [Ambien] Med 02/12/17 14:23 Active 5 mg PO BEDTIME PRN fentaNYL [Sublimaze] Med 02/12/17 14:26 Active 25 mcg IVPUSH Q2H PRN oxyCODONE ER [OxyCONTIN] Med 02/12/17 21:00 Active 20 mg PO BID Antiembolic Hose [OM.PC] Per Unit Routine Oth 02/12/17 14:24 Ordered Blood Culture x2 Reflex Set [OM.PC] Stat Oth 02/12/17 14:37 Ordered Peripheral IV Insertion Adult [OM.PC] Routine Oth 02/12/17 14:23 Ordered Saline Lock Insert [OM.PC] Routine Oth 02/12/17 14:23 Ordered Resuscitation Status Routine Resus Stat 02/12/17 14:23 Ordered Medication Orders Acetaminophen (Tylenol) 650 mg PO Q4H PRN PRN Reason: Pain (Mild 1-3)/fever Belladonna Alkaloids/Opium (B & O Supprettes No. 16a) 1 supp RECTAL BID ROBYN Escitalopram Oxalate (Lexapro) 20 mg PO DAILY [facility] Fentanyl (Sublimaze) 25 mcg IVPUSH Q2H PRN PRN Reason: severe pain Heparin Sodium (Porcine) (Heparin Sodium) 5,000 units SUBCUT Q8HR [facility] Ciprofloxacin/Dextrose 400 mg/ (Premix) 200 mls @ 200 mls/hr IV Q12HR [facility] Non-Formulary Medication (Bicalutamide [Casodex]) 1 tab PO DAILY [facility] Omeprazole (Omeprazole) 20 mg PO ACBRK ROBYN Oxycodone HCl (Oxycontin) 20 mg PO BID [facility] Oxycodone/Acetaminophen (Percocet 325-5 Mg) 1 tab PO Q4H PRN PRN Reason: pelvic pain Phenazopyridine HCl (Urinary Pain Relief) 95 mg PO TID [facility] Senna/Docusate Sodium (Senna Plus) 2 tab PO BEDTIME [facility] Sodium Chloride (Saline Flush) 10 ml FLUSH ASDIRECTED PRN PRN Reason: Keep Vein Open Tamsulosin HCl (Flomax) 0.4 mg PO BEDTIME [facility] Zolpidem Tartrate (Ambien) 5 mg PO BEDTIME PRN PRN Reason: Sleep Assessment/Plan Comment:: Pelvic pain The differential diagnosis is wide This might represent constipation, cystitis, radiculopathy, radiation changes in the bone, pelvic fracture. Recurrent malignancy. We'll obtain CT of the abdomen and pelvis for further evaluation Start the patient empirically for treatment for urinary tract infection, give B and O suppository and pyridium for possible spasms. use oxycontin BID and oxycodone prn possible UTI vs colonizoation vs. radiation cystitis evaluate for uti wit blood and urine cx. start on cipro delirium with sundowning might be due to dementia narcotic use can exacerbate symptoms will follow dvt prophylaxis with sq heparin
[2017-02-12] MEDS: Acetaminophen/oxyCODONE 325-5 MG Tab PO PRN ×2 (16:38→20:43)
[2017-02-12] MEDS: oxyCODONE ER 20 MG TAB.ER PO SCH (20:43)
[2017-02-12] MEDS: Tamsulosin 0.4 MG Cap.ER PO SCH (20:43)
[2017-02-12] MEDS: OPIUM RECTAL SCH (20:52)
[2017-02-12] MEDS: BELLADONNA ALKALOIDS RECTAL SCH (20:52)
[2017-02-12] MEDS: Phenazopyridine 95 MG Tab PO SCH (20:53)
[2017-02-12] MEDS: Sodium Chloride 0.9% 10 ML Syringe FLUSH PRN ×2 (21:01→22:25)
[2017-02-12] MEDS: Ciprofloxacin in D5W 400 MG in Premix Bag 1 BAG IV SCH ×2 (21:01)
[2017-02-12] MEDS: Heparin Sodium 5,000 Units/ML Vial SUBCUT SCH (22:29)
[2017-02-12] MEDS: BICALUTAMIDE 50 MG PO SCH (22:30)
[2017-02-13] MEDS: Acetaminophen/oxyCODONE 325-5 MG Tab PO PRN ×5 (02:00→22:58)
[2017-02-13] MEDS: Omeprazole 20 MG Cap.CR PO SCH (06:18)
[2017-02-13] MEDS: Heparin Sodium 5,000 Units/ML Vial SUBCUT SCH ×3 (06:20→21:14)
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
[2017-02-13] MEDS: oxyCODONE ER 20 MG TAB.ER PO SCH ×2 (08:43→20:31)
[2017-02-13] MEDS: Escitalopram 10 MG Tab PO SCH (08:43)
[2017-02-13] MEDS: Phenazopyridine 95 MG Tab PO SCH (08:44)
[2017-02-13] MEDS: BELLADONNA ALKALOIDS RECTAL SCH (08:44)
[2017-02-13] MEDS: OPIUM RECTAL SCH (08:44)
[2017-02-13] MEDS ORDERED: BICALUTAMIDE PO SCH (09:00)
[2017-02-13] MEDS: Sodium Chloride 0.9% 10 ML Syringe FLUSH PRN ×3 (09:45→20:36)
[2017-02-13] MEDS: Ciprofloxacin in D5W 400 MG in Premix Bag 1 BAG IV SCH ×4 (09:45→20:40)
--- NOTE | 2017-02-13 11:40 | PCM.PN ---
- General Info Date of Service: 02/13/17 Admission Dx/Problem (Free Text): Admission Diagnosis/Problem Admission Diagnosis/Problem UTI, Urinary tract infectious disease Subjective Update: no fever continued to have suprapubic pain worse with movements, better with rest has been present for weeks no apparent trauma but has a h/o prostate ca Functional Status: Denies: Pain Controlled - Review of Systems General: Denies: Fever Pulmonary: Denies: Shortness of Breath Cardiovascular: Denies: Chest Pain Gastrointestinal: Denies: Abdominal Pain Genitourinary: Denies: Dysuria - Patient Data Vitals - Most Recent: Last Vital Signs Temp 36.4 C 02/13/17 11:00 Pulse 78 02/13/17 11:00 Resp 20 02/13/17 11:00 BP 143/68 H 02/13/17 11:00 Pulse Ox 92 L 02/13/17 11:00 Weight - Most Recent: 76.385 kg I&O - Last 24 Hours: Intake & Output 02/12/17 02/13/17 02/13/17 22:59 06:59 14:59 Intake Total 200 550 190 Output Total 202 775 120 Balance -2 -225 70 Med Orders - Current: Current Medications Acetaminophen (Tylenol) 650 mg PO Q4H PRN PRN Reason: Pain (Mild 1-3)/fever Escitalopram Oxalate (Lexapro) 20 mg PO DAILY [facility] [place] Last Admin: 02/13/17 08:43 Dose: 20 mg Fentanyl (Sublimaze) 25 mcg IVPUSH Q2H PRN PRN Reason: severe pain Heparin Sodium (Porcine) (Heparin Sodium) 5,000 units SUBCUT Q8HR [facility] [place] Last Admin: 02/13/17 06:20 Dose: 5,000 units Ciprofloxacin/Dextrose 400 mg/ (Premix) 200 mls @ 200 mls/hr IV Q12HR [facility] [place] Last Admin: 02/13/17 09:45 Dose: 200 mls/hr Omeprazole (Omeprazole) 20 mg PO ACBRK [facility] [place] Last Admin: 02/13/17 06:18 Dose: 20 mg Oxycodone HCl (Oxycontin) 20 mg PO BID [facility] [place] Last Admin: 02/13/17 08:43 Dose: 20 mg Oxycodone/Acetaminophen (Percocet 325-5 Mg) 1 tab PO Q4H PRN PRN Reason: pelvic pain Last Admin: 02/13/17 11:29 Dose: 1 tab Bicalutamide 50 Mg * (*Own Med) 1 each PO BEDTIME [facility] [place] Last Admin: 02/12/17 22:30 Dose: 1 each Senna/Docusate Sodium (Senna Plus) 2 tab PO BEDTIME [facility] [place] Last Admin: 02/12/17 20:42 Dose: 2 tab Sodium Chloride (Saline Flush) 10 ml FLUSH ASDIRECTED PRN PRN Reason: Keep Vein Open Last Admin: 02/13/17 10:51 Dose: 10 ml Tamsulosin HCl (Flomax) 0.4 mg PO BEDTIME [facility] Last Admin: 02/12/17 20:43 Dose: 0.4 mg Zolpidem Tartrate (Ambien) 5 mg PO BEDTIME PRN PRN Reason: Sleep Discontinued Medications Barium Sulfate (Readi-Cat 2) 900 ml PO ONETIME ONE Stop: 02/12/17 14:34 Last Admin: 02/12/17 14:47 Dose: 900 ml Belladonna Alkaloids/Opium (B & O Supprettes No. 16a) 1 supp RECTAL BID [facility] [place] Last Admin: 02/13/17 08:44 Dose: Not Given Ciprofloxacin (Ciprofloxacin Hcl) 500 mg PO ONETIME ONE Stop: 02/12/17 12:16 Last Admin: 02/12/17 12:32 Dose: 500 mg Iopamidol (Isovue-300 (61%)) 75 ml IVPUSH ONETIME ONE Stop: 02/12/17 14:35 Last Admin: 02/12/17 16:19 Dose: 75 ml Non-Formulary Medication (Bicalutamide [Casodex]) 1 tab PO DAILY [facility] [place] Phenazopyridine HCl (Urinary Pain Relief) 95 mg PO TID [facility] [place] Last Admin: 02/13/17 08:44 Dose: Not Given - Exam General: Alert, Oriented Neck: Supple Lungs: Clear to Auscultation Cardiovascular: Regular Rate, Regular Rhythm Extremities: No Pedal Edema - Problem List & Annotations (1) Pelvic pain in male SNOMED Code(s): 30168079 Code(s): R10.2 - PELVIC AND PERINEAL PAIN Status: Acute Current Visit: Yes (2) Pelvic fracture SNOMED Code(s): 08529783 Code(s): S32.9XXA - FRACTURE OF UNSP PARTS OF LUMBOSACRAL SPINE AND PELVIS, INIT Status: Acute Current Visit: Yes - Problem List Review Problem List Initiated/Reviewed/Updated: Yes - My Orders Last 24 Hours: My Active Orders 02/12/17 11:04 CULTURE BLOOD [BC] Stat 02/12/17 14:26 fentaNYL [Sublimaze] 25 mcg IVPUSH Q2H PRN 02/12/17 14:37 Blood Culture x2 Reflex Set [OM.PC] Stat 02/12/17 15:00 CULTURE BLOOD [BC] Stat 02/12/17 21:30 Patient's Own Medication [Ptom] 1 each PO BEDTIME 02/13/17 11:45 Lidocaine 5% [Lidoderm 5%] 700 mg TOP DAILY 02/14/17 05:15 BASIC METABOLIC PANEL,BMP [CHEM] AM CBC WITH AUTO DIFF [HEME] AM - Plan Plan:: Pelvic pain CT showed pubic bone fracture possible pathologic with prostate cancer use oxycontin BID and oxycodone prn start pt/ot start lidoderm patch possible UTI vs colonization vs. radiation cystitis pending blood and urine cx. started on cipro delirium with sundowning might be due to dementia narcotic use can exacerbate symptoms will follow dvt prophylaxis with sq heparin
[2017-02-13] MEDS: Lidocaine 5% 700 MG Patch TOP SCH (13:11)
[2017-02-13] MEDS: Diazepam 5 MG Tab PO PRN (15:37)
[2017-02-13] MEDS ORDERED: Diazepam 5 MG Tab PO ONE (20:25)
[2017-02-13] MEDS: Tamsulosin 0.4 MG Cap.ER PO SCH (20:31)
[2017-02-13] MEDS: BICALUTAMIDE 50 MG PO SCH (20:33)
[2017-02-13] MEDS: Zolpidem 5 MG Tab PO PRN (21:14)
[2017-02-13] MEDS: OLANZapine 10 MG Vial IM PRN (22:51)
[2017-02-14] MEDS: Heparin Sodium 5,000 Units/ML Vial SUBCUT SCH ×3 (07:18→21:00)
[2017-02-14] MEDS: Omeprazole 20 MG Cap.CR PO SCH (07:19)
[2017-02-14 09:05] LABS: CHLORIDE,CL 98 mmol/L (101-111); SODIUM,NA 138 mmol/L (135-145)
[2017-02-14] MEDS: Lidocaine 5% 700 MG Patch TOP SCH (10:03)
[2017-02-14] MEDS: Ciprofloxacin in D5W 400 MG in Premix Bag 1 BAG IV SCH ×4 (10:03→21:01)
[2017-02-14] MEDS: Escitalopram 10 MG Tab PO SCH (10:04)
[2017-02-14] MEDS: oxyCODONE ER 20 MG TAB.ER PO SCH ×2 (10:04→20:58)
--- NOTE | 2017-02-14 11:40 | PCM.PN ---
- General Info Date of Service: 02/14/17 Admission Dx/Problem (Free Text): Admission Diagnosis/Problem Admission Diagnosis/Problem UTI, Urinary tract infectious disease Subjective Update: no fever continued to have suprapubic pain worse with movements, better with rest has been present for weeks no apparent trauma but has a h/o prostate ca last evening had increased confusion, delirium, agitation improved after valium, zyprexa - Review of Systems General: Denies: Fever Pulmonary: Denies: Shortness of Breath Cardiovascular: Denies: Chest Pain Gastrointestinal: Denies: Abdominal Pain - Patient Data Vitals - Most Recent: Last Vital Signs Temp 36.2 C 02/14/17 11:00 Pulse 76 02/14/17 11:00 Resp 20 02/14/17 11:00 BP 118/61 02/14/17 11:00 Pulse Ox 92 L 02/14/17 11:00 Weight - Most Recent: 76.385 kg I&O - Last 24 Hours: Intake & Output 02/13/17 02/14/17 02/14/17 22:59 06:59 14:59 Intake Total 649 190 Output Total 240 Balance 409 190 Lab Results Last 24 Hours: Laboratory Results - last 24 hr 02/14/17 02/14/17 Range/Units 08:37 08:37 WBC 9.1 (5.0-10.0) 10^3/uL RBC 4.36 L (4.6-6.2) 10^6/uL Hgb 12.3 L (14.0-18.0) g/dL Hct 38.5 L (40.0-54.0) % MCV 88.3 (80-100) fL MCH 28.2 (27.0-34.0) pg MCHC 31.9 L (33.0-35.0) g/dL Plt Count 292 (150-450) 10^3/uL Neut % (Auto) 76.1 H (42.2-75.2) % Lymph % (Auto) 12.2 L (20.5-50.1) % [place] % (Auto) 7.4 (2-8) % Eos % (Auto) 4.0 H (1.0-3.0) % Baso % (Auto) 0.3 (0.0-1.0) % Sodium 138 (135-145) mmol/L Potassium 4.2 (3.6-5.0) mmol/L Chloride 98 L (101-111) mmol/L Carbon Dioxide 29.0 (21.0-31.0) mmol/L Anion Gap 15.2 BUN 11 (7-18) mg/dL Creatinine 1.0 (0.6-1.3) mg/dL Est Cr Clr Drug Dosing 57.00 mL/min Estimated GFR (MDRD) > 60 Glucose 193 H (74-105) mg/dL Calcium 9.3 (8.4-10.2) mg/dl Gilberto Results Last 24 Hours: Microbiology 02/12/17 15:00 Aerobic Blood Culture - Preliminary Blood - Venous - Lab Draw NO GROWTH AFTER 1 DAY Anaerobic Blood Culture - Preliminary NO GROWTH AFTER 1 DAY Med Orders - Current: Current Medications Acetaminophen (Tylenol) 650 mg PO Q4H PRN PRN Reason: Pain (Mild 1-3)/fever Diazepam (Valium.) 5 mg PO Q6H PRN PRN Reason: Agitation Last Admin: 02/13/17 15:37 Dose: 5 mg Escitalopram Oxalate (Lexapro) 20 mg PO DAILY [facility] Last Admin: 02/14/17 10:04 Dose: 20 mg Fentanyl (Sublimaze) 25 mcg IVPUSH Q2H PRN PRN Reason: severe pain Heparin Sodium (Porcine) (Heparin Sodium) 5,000 units SUBCUT Q8HR [facility] Last Admin: 02/14/17 07:18 Dose: 5,000 units Ciprofloxacin/Dextrose 400 mg/ (Premix) 200 mls @ 200 mls/hr IV Q12HR [facility] Last Admin: 02/14/17 10:03 Dose: 200 mls/hr Lidocaine (Lidoderm 5%) 700 mg TOP DAILY [facility] Last Admin: 02/14/17 10:03 Dose: 700 mg Miscellaneous Information (Remove Patch) 1 ea TRDERM BEDTIME [facility] Last Admin: 02/13/17 20:48 Dose: Not Given Olanzapine (Zyprexa) 5 mg IM Q6H PRN PRN Reason: agitation, anxiety Last Admin: 02/13/17 22:51 Dose: 5 mg Omeprazole (Omeprazole) 20 mg PO ACBRK [facility] Last Admin: 02/14/17 07:19 Dose: 20 mg Oxycodone HCl (Oxycontin) 20 mg PO BID [facility] Last Admin: 02/14/17 10:04 Dose: 20 mg Oxycodone/Acetaminophen (Percocet 325-5 Mg) 1 tab PO Q4H PRN PRN Reason: pelvic pain Last Admin: 02/13/17 22:58 Dose: 1 tab Bicalutamide 50 Mg * (*Own Med) 1 each PO BEDTIME [facility] Last Admin: 02/13/17 20:33 Dose: 1 each Senna/Docusate Sodium (Senna Plus) 2 tab PO BEDTIME [facility] Last Admin: 02/13/17 20:31 Dose: 2 tab Sodium Chloride (Saline Flush) 10 ml FLUSH ASDIRECTED PRN PRN Reason: Keep Vein Open Last Admin: 02/13/17 20:36 Dose: 10 ml Tamsulosin HCl (Flomax) 0.4 mg PO BEDTIME [facility] Last Admin: 02/13/17 20:31 Dose: 0.4 mg Zolpidem Tartrate (Ambien) 5 mg PO BEDTIME PRN PRN Reason: Sleep Last Admin: 02/13/17 21:14 Dose: 5 mg Discontinued Medications Barium Sulfate (Readi-Cat 2) 900 ml PO ONETIME ONE Stop: 02/12/17 14:34 Last Admin: 02/12/17 14:47 Dose: 900 ml Belladonna Alkaloids/Opium (B & O Supprettes No. 16a) 1 supp RECTAL BID [facility] Last Admin: 02/13/17 08:44 Dose: Not Given Ciprofloxacin (Ciprofloxacin Hcl) 500 mg PO ONETIME ONE Stop: 02/12/17 12:16 Last Admin: 02/12/17 12:32 Dose: 500 mg Diazepam (Valium.) 5 mg PO ONETIME ONE Stop: 02/13/17 20:26 Last Admin: 02/13/17 20:31 Dose: 5 mg Iopamidol (Isovue-300 (61%)) 75 ml IVPUSH ONETIME ONE Stop: 02/12/17 14:35 Last Admin: 02/12/17 16:19 Dose: 75 ml Non-Formulary Medication (Bicalutamide [Casodex]) 1 tab PO DAILY [facility] Phenazopyridine HCl (Urinary Pain Relief) 95 mg PO TID [facility] Last Admin: 02/13/17 08:44 Dose: Not Given - Exam General: Alert, Oriented, Other (poor insight and poor short term memory, needs repeated reorientation) Neck: Supple Lungs: Clear to Auscultation, Normal Respiratory Effort Cardiovascular: Regular Rate, Regular Rhythm Extremities: Normal Inspection, No Pedal Edema Skin: Warm, Dry Psy/Mental Status: Alert - Problem List & Annotations (1) Pelvic pain in male SNOMED Code(s): 15415401 Code(s): R10.2 - PELVIC AND PERINEAL PAIN Status: Acute Current Visit: Yes (2) Pelvic fracture SNOMED Code(s): 95231912 Code(s): S32.9XXA - FRACTURE OF UNSP PARTS OF LUMBOSACRAL SPINE AND PELVIS, INIT Status: Acute Current Visit: Yes (3) Dementia SNOMED Code(s): 51366703 Code(s): F03.90 - UNSPECIFIED DEMENTIA WITHOUT BEHAVIORAL DISTURBANCE Status: Acute Current Visit: Yes - Problem List Review Problem List Initiated/Reviewed/Updated: Yes - My Orders Last 24 Hours: My Active Orders 02/13/17 11:45 Lidocaine 5% [Lidoderm 5%] 700 mg TOP DAILY 02/13/17 15:18 Diazepam [Valium] 5 mg PO Q6H PRN 02/13/17 21:00 Remove Patch 1 ea TRDERM BEDTIME 02/13/17 22:36 OLANZapine [ZyPREXA] 5 mg IM Q6H PRN - Plan Plan:: Pelvic pain CT showed pubic bone fracture possible pathologic with prostate cancer use oxycontin BID and oxycodone prn cont pt/ot cont lidoderm patch possible UTI vs colonization vs. radiation cystitis pending blood cx urine cx.: contaminant started on cipro delirium with sundowning likely underlying dementia with h/o anxiety/depression narcotic use can exacerbate symptoms cont lexapro prn zyprexa if needed at night will follow dvt prophylaxis with sq heparin
[2017-02-14] MEDS: Acetaminophen/oxyCODONE 325-5 MG Tab PO PRN ×2 (13:18→19:15)
[2017-02-14] MEDS: Sodium Chloride 0.9% 10 ML Syringe FLUSH PRN (19:51)
[2017-02-14] MEDS: Diazepam 5 MG Tab PO PRN (19:56)
[2017-02-14] MEDS: Tamsulosin 0.4 MG Cap.ER PO SCH (20:57)
[2017-02-14] MEDS: Zolpidem 5 MG Tab PO PRN (20:57)
[2017-02-14] MEDS: OLANZapine 10 MG Vial IM PRN (20:58)
[2017-02-14] MEDS: BICALUTAMIDE 50 MG PO SCH (21:05)
[2017-02-15] MEDS: Acetaminophen/oxyCODONE 325-5 MG Tab PO PRN (08:08)
[2017-02-15] MEDS: Omeprazole 20 MG Cap.CR PO SCH (08:08)
[2017-02-15] MEDS: Heparin Sodium 5,000 Units/ML Vial SUBCUT SCH (08:08)
[2017-02-15 08:14] VITALS: BP 140/66
[2017-02-15] MEDS: oxyCODONE ER 20 MG TAB.ER PO SCH (09:07)
[2017-02-15] MEDS: Escitalopram 10 MG Tab PO SCH (09:07)
[2017-02-15] MEDS: Lidocaine 5% 700 MG Patch TOP SCH (09:08)
[2017-02-15] MEDS: Sodium Chloride 0.9% 10 ML Syringe FLUSH PRN (09:10)
[2017-02-15] MEDS: Ciprofloxacin in D5W 400 MG in Premix Bag 1 BAG IV SCH ×2 (09:50)
--- NOTE | 2017-02-15 09:51 | PCM.DCSUM1 ---
Discharge Summary - Hospital Course Free Text/Narrative:: presented with anterior pelvic pain Pelvic pain CT showed pubic bone fracture possible pathologic with prostate cancer use oxycontin BID and oxycodone prn cont lidoderm patch possible UTI vs colonization vs. radiation cystitis blood cx: neg urine cx.: contaminant started on cipro - will fnish a few days tx. delirium with sundowning likely underlying dementia with h/o anxiety/depression narcotic use can exacerbate symptoms cont lexapro prn zyprexa if needed at night - I think it will be useful for a few days while adjusting to new environment - Discharge Data Discharge Date: 02/15/17 Discharge Disposition: DC/[facility] Condition: Stable - Discharge Diagnosis/Problem(s) (1) Pelvic pain in male SNOMED Code(s): 01919132 ICD Code: R10.2 - PELVIC AND PERINEAL PAIN Status: Acute Current Visit: Yes (2) Pelvic fracture SNOMED Code(s): 76280169 ICD Code: S32.9XXA - FRACTURE OF UNSP PARTS OF LUMBOSACRAL SPINE AND PELVIS, INIT Status: Acute Current Visit: Yes (3) Dementia SNOMED Code(s): 81414974 ICD Code: F03.90 - UNSPECIFIED DEMENTIA WITHOUT BEHAVIORAL DISTURBANCE Status: Acute Current Visit: Yes - Patient Instructions Diet: Usual Diet as Tolerated Activity: As Tolerated - Discharge Plan Prescriptions/Med Rec: Ciprofloxacin HCl [Cipro] 250 mg PO BID #6 tablet Lidocaine 5% [Lidoderm 5%] 700 mg TOP DAILY #6 patch OLANZapine [ZyPREXA] 5 mg PO BEDTIME PRN #5 tablet PRN Reason: for sleep Zolpidem [Ambien] 5 mg PO BEDTIME PRN #30 tablet PRN Reason: for sleep Home Medications: Home Meds Omeprazole [Prilosec] 20 mg PO DAILY 10/03/13 [History] Tamsulosin [Flomax] 0.4 mg PO BEDTIME 10/03/13 [History] Bicalutamide [Casodex] 1 tab PO DAILY 08/17/15 [History] Docusate Sodium/Sennosides [Senna Plus] 2 tab PO BEDTIME #30 tablet 08/18/15 [Rx ] Escitalopram Oxalate [Lexapro] 1 tab PO DAILY 11/07/16 [History] Hydrocodone/Acetaminophen [[place] 5-325] 1 each PO Q6HR PRN 11/28/16 [History] oxyCODONE HCl [Oxycontin] 1 tab PO BID 02/12/17 [History] Ciprofloxacin HCl [Cipro] 250 mg PO BID #6 tablet 02/15/17 [Rx] Lidocaine 5% [Lidoderm 5%] 700 mg TOP DAILY #6 patch 02/15/17 [Rx] OLANZapine [ZyPREXA] 5 mg PO BEDTIME PRN #5 tablet 02/15/17 [Rx] Zolpidem [Ambien] 5 mg PO BEDTIME PRN #30 tablet 02/15/17 [Rx] - Discharge Summary/Plan Comment DC Time >30 min.: Yes (filling out [facility] transfer, referral documents) - General Info Date of Service: 02/15/17 Admission Dx/Problem (Free Text: Admission Diagnosis/Problem Admission Diagnosis/Problem UTI, Urinary tract infectious disease Subjective Update: no fever continued to have suprapubic pain that is worse with movements, better with rest has been present for weeks, improved since admission no apparent trauma but has a h/o prostate ca slept well after valium, zyprexa - Review of Systems General: Denies: Fever Pulmonary: Denies: Shortness of Breath Cardiovascular: Denies: Chest Pain Gastrointestinal: Denies: Abdominal Pain Genitourinary: Denies: Dysuria - Patient Data Vitals - Most Recent: Last Vital Signs Temp 37.0 C 02/15/17 08:13 Pulse 78 02/15/17 08:13 Resp 20 02/15/17 08:13 BP 140/66 02/15/17 08:13 Pulse Ox 94 L 02/15/17 08:13 Weight - Most Recent: 76.385 kg I&O - Last 24 hours: Intake & Output 02/14/17 02/15/17 02/15/17 22:59 06:59 14:59 Intake Total 100 Output Total 100 300 Balance -100 -200 [facility] Results - Last 24 hrs: Microbiology 02/12/17 15:00 Aerobic Blood Culture - Preliminary Blood - Venous - Lab Draw NO GROWTH AFTER 2 DAYS Anaerobic Blood Culture - Preliminary NO GROWTH AFTER 2 DAYS Med Orders - Current: Current Medications Acetaminophen (Tylenol) 650 mg PO Q4H PRN PRN Reason: Pain (Mild 1-3)/fever Last Admin: 02/14/17 16:36 Dose: 650 mg Diazepam (Valium.) 5 mg PO Q6H PRN PRN Reason: Agitation Last Admin: 02/14/17 19:56 Dose: 5 mg Escitalopram Oxalate (Lexapro) 20 mg PO DAILY [facility] Last Admin: 02/15/17 09:07 Dose: 20 mg Fentanyl (Sublimaze) 25 mcg IVPUSH Q2H PRN PRN Reason: severe pain Heparin Sodium (Porcine) (Heparin Sodium) 5,000 units SUBCUT Q8HR [facility] Last Admin: 02/15/17 08:08 Dose: Not Given Ciprofloxacin/Dextrose 400 mg/ (Premix) 200 mls @ 200 mls/hr IV Q12HR [facility] Last Admin: 02/14/17 21:01 Dose: 200 mls/hr Lidocaine (Lidoderm 5%) 700 mg TOP DAILY [facility] Last Admin: 02/15/17 09:08 Dose: 700 mg Miscellaneous Information (Remove Patch) 1 ea TRDERM BEDTIME [facility] Last Admin: 02/14/17 21:01 Dose: Not Given Olanzapine (Zyprexa) 5 mg IM Q6H PRN PRN Reason: agitation, anxiety Last Admin: 02/14/17 20:58 Dose: 5 mg Omeprazole (Omeprazole) 20 mg PO ACBRK [facility] Last Admin: 02/15/17 08:08 Dose: 20 mg Oxycodone HCl (Oxycontin) 20 mg PO BID [facility] Last Admin: 02/15/17 09:07 Dose: 20 mg Oxycodone/Acetaminophen (Percocet 325-5 Mg) 1 tab PO Q4H PRN PRN Reason: pelvic pain Last Admin: 02/15/17 08:08 Dose: 1 tab Bicalutamide 50 Mg * (*Own Med) 1 each PO BEDTIME [facility] Last Admin: 02/14/17 21:05 Dose: 1 each Senna/Docusate Sodium (Senna Plus) 2 tab PO BEDTIME [facility] Last Admin: 02/14/17 20:57 Dose: 2 tab Sodium Chloride (Saline Flush) 10 ml FLUSH ASDIRECTED PRN PRN Reason: Keep Vein Open Last Admin: 02/15/17 09:10 Dose: 10 ml Tamsulosin HCl (Flomax) 0.4 mg PO BEDTIME [facility] Last Admin: 02/14/17 20:57 Dose: 0.4 mg Zolpidem Tartrate (Ambien) 5 mg PO BEDTIME PRN PRN Reason: Sleep Last Admin: 02/14/17 20:57 Dose: 5 mg Discontinued Medications Barium Sulfate (Readi-Cat 2) 900 ml PO ONETIME ONE Stop: 02/12/17 14:34 Last Admin: 02/12/17 14:47 Dose: 900 ml Belladonna Alkaloids/Opium (B & O Supprettes No. 16a) 1 supp RECTAL BID [facility] Last Admin: 02/13/17 08:44 Dose: Not Given Ciprofloxacin (Ciprofloxacin Hcl) 500 mg PO ONETIME ONE Stop: 02/12/17 12:16 Last Admin: 02/12/17 12:32 Dose: 500 mg Diazepam (Valium.) 5 mg PO ONETIME ONE Stop: 02/13/17 20:26 Last Admin: 02/13/17 20:31 Dose: 5 mg Iopamidol (Isovue-300 (61%)) 75 ml IVPUSH ONETIME ONE Stop: 02/12/17 14:35 Last Admin: 02/12/17 16:19 Dose: 75 ml Non-Formulary Medication (Bicalutamide [Casodex]) 1 tab PO DAILY [facility] Phenazopyridine HCl (Urinary Pain Relief) 95 mg PO TID [facility] Last Admin: 02/13/17 08:44 Dose: Not Given - Exam General: Reports: Alert, Oriented Neck: Reports: Supple Lungs: Reports: Clear to Auscultation, Normal Respiratory Effort GI/Abdominal Exam: Normal Bowel Sounds, Soft, Non-Tender Extremities: No Pedal Edema Skin: Reports: Warm, Dry Neurological: Reports: No New Focal Deficit Psy/Mental Status: Reports: Alert, Normal Affect, Normal Mood *Q Meaningful Use (DIS) - VTE *Q VTE Criteria *Q: - Stroke *Q Stroke Criteria *Q: - AMI *Q AMI Criteria *Q:
== END 2017-02-15 10:43 | DRG 543 ==
LOC: DL.ED 10:35 → UNDOADMIN 13:30 → DL.MS 13:30
PROVIDERS: ADMIT Internal Medicine; ATTEND Internal Medicine
DX: M84.454A Pathological fracture, pelvis, initial encounter for fracture (principal); N30.00 Acute cystitis without hematuria; F05 Delirium due to known physiological condition; F32.9 Major depressive disorder, single episode, unspecified; R10.2 Pelvic and perineal pain; F03.90 Unspecified dementia, unspecified severity, without behavioral disturbance, psychotic disturbance, mood disturbance, and anxiety; F41.8 Other specified anxiety disorders; C61 Malignant neoplasm of prostate; R33.9 Retention of urine, unspecified; E78.00 Pure hypercholesterolemia, unspecified; Z88.8 Allergy status to other drugs, medicaments and biological substances; Z79.899 Other long term (current) drug therapy; Z87.891 Personal history of nicotine dependence
CPT/HCPCS: 36415; 80053; 81001; 83605; 83735; 85025; 87040; 87086; A9270; 74177; 80048; 99283; 99284; J0744; J1644; J7050; Q9967; S0166

== ENCOUNTER 2017-02-27 18:30 | Emergency (ER) | payer MEDICARE, BC ==
[2017-02-27 20:06] LABS: CHLORIDE,CL 98 mmol/L (101-111); SODIUM,NA 134 mmol/L (135-145)
[2017-02-27 20:27] VITALS: BP 107/55
[2017-02-27] MEDS ORDERED: oxyCODONE 5 MG Tab ONE (21:36)
[2017-02-27] MEDS ORDERED: oxyCODONE ER 20 MG TAB.ER ONE (21:39)
--- NOTE | 2017-02-27 21:43 | EDM.PDOC ---
ED HPI GENERAL MEDICAL PROBLEM - General Chief Complaint: Lower Extremity Injury/Pain Stated Complaint: PAIN Time Seen by Provider: 02/27/17 19:15 Source of Information: Reports: Patient, EMS, Family, Long-Term Records History Limitations: Reports: Altered Mental Status (patient confused,) - History of Present Illness INITIAL COMMENTS - FREE TEXT/NARRATIVE: Patient transferred to ED per family request due to uncontrolled pain. Patient denies pain on arrival. Hx dementia and chronic pain from prostate CA and pelvic fracture. Family report strong dissatisfaction with NH and not being able to get help in timely manner and having to wait long periods for pain medications. Patient was ordered to have Fentynal patch placed today but refused , no order discontinued. Last pain pil was 6 pm. Last prn hydrocodone at 1245. Family noted that patient has been failing in NH setting with skin breakdown and progressively getting weaker instead of better. Briefs usually saturated. noted some clots today. Appointment in am with neuro psych and 2pm in [place] with oncologist. TC with NH staff and Dr. Snow , patient was out of nH wandering this afternoon. Patient refused fentanyl patch be initiated todayas "people from that". Duration: Chronic Right Hip Pain Score (Numeric/FACES): 5 - Related Data Allergies Allergy/AdvReac Type Severity Reaction Status Date / Time lorazepam [From Ativan] Allergy Confusion Verified 02/27/17 18:51 morphine Allergy Confusion Verified 02/27/17 18:51 nitrofurantoin Allergy Other Verified 02/27/17 18:51 [From Macrobid] oxybutynin Allergy Cannot Verified 02/27/17 18:51 Remember phenazopyridine Allergy Other Verified 02/27/17 18:51 [From Pyridium] Home Meds: Home Meds Omeprazole [Prilosec] 20 mg PO DAILY 10/03/13 [History] Tamsulosin [Flomax] 0.4 mg PO BEDTIME 10/03/13 [History] Bicalutamide [Casodex] 1 tab PO DAILY 08/17/15 [History] Docusate Sodium/Sennosides [Senna Plus] 2 tab PO BEDTIME #30 tablet 08/18/15 [Rx ] Escitalopram Oxalate [Lexapro] 1 tab PO DAILY 11/07/16 [History] Hydrocodone/Acetaminophen [[place] 5-325] 1 each PO Q6HR PRN 11/28/16 [History] oxyCODONE HCl [Oxycontin] 1 tab PO TID 02/12/17 [History] Lidocaine 5% [Lidoderm 5%] 700 mg TOP DAILY #6 patch 02/15/17 [Rx] Zolpidem [Ambien] 5 mg PO BEDTIME PRN #30 tablet 02/15/17 [Rx] Magnesium Hydroxide [Milk of Magnesia] 30 ml PO DAILY PRN 02/27/17 [History] OLANZapine [ZyPREXA] 5 mg PO BEDTIME PRN 02/27/17 [History] fentaNYL [Fentanyl] 25 mcg TD Q72H 02/27/17 [History] Past Medical History HEENT History: Reports: Cataract, Impaired Vision, Other (See Below) Other HEENT History: wears glasses Cardiovascular History: Reports: High Cholesterol Respiratory History: Reports: None Gastrointestinal History: Reports: Chronic Constipation, GERD Genitourinary History: Reports: BPH, UTI, Recurrent, Other (See Below) Other Genitourinary History: dilalation of urethra Musculoskeletal History: Reports: Back Pain, Chronic, Fracture Other Musculoskeletal History: left femur surgery Neurological History: Reports: None Psychiatric History: Reports: Depression Endocrine/Metabolic History: Reports: None Hematologic History: Reports: None Immunologic History: Reports: None Oncologic (Cancer) History: Reports: Prostate Dermatologic History: Reports: None - Infectious Disease History Infectious Disease History: Reports: Chicken Pox, Measles, Mumps, Other (See Below) - Past Surgical History Head Surgeries/Procedures: Reports: None HEENT Surgical History: Reports: None, Cataract Surgery Cardiovascular Surgical History: Reports: None GI Surgical History: Reports: Colonoscopy Other Male Surgeries/Procedures: prostate problems Musculoskeletal Surgical History: Reports: Other (See Below) Other Musculoskeletal Surgeries/Procedures:: back surg, R) hip joint replacement Social & Family History - Family History Family Medical History: Noncontributory Other Hematologic Family History: mother of cerebral aneurysm - Tobacco Use Smoking Status *Q: Former Smoker Years of Tobacco use: 20 Packs/Tins Daily: 0.5 Used Tobacco, but Quit: No Month Tobacco Last Used: when he was 41 years old Second Hand Smoke Exposure: No - Caffeine Use Caffeine Use: Reports: Coffee, Soda, Tea - Alcohol Use Days Per Week of Alcohol Use: 0 - Recreational Drug Use Recreational Drug Use: No - Living Situation & Occupation Occupation: Retired [employer] - Review of Systems Review Of Systems: ROS reveals no pertinent complaints other than HPI. Eyes: Reports: No Symptoms Ears: Reports: No Symptoms Nose: Reports: No Symptoms Mouth/Throat: Reports: No Symptoms Respiratory: Reports: No Symptoms Cardiovascular: Reports: No Symptoms GI/Abdominal: Reports: No Symptoms Genitourinary: Reports: Hematuria, Incontinence Musculoskeletal: Reports: Other (pelvic, right hip pain) Skin: Reports: Other (healing pressure area to coccygeal fold, dried excoriation left inner buttock. ) Neurological: Reports: Confusion Psychiatric: Reports: Anxiety ED EXAM, GENERAL - Physical Exam Exam: See Below Exam Limited By: No Limitations General Appearance: Alert, No Apparent Distress, Anxious Eye Exam: Bilateral Eye: EOMI, PERRL Ears: Normal External Exam Nose: Normal Inspection Throat/Mouth: Normal Inspection Head: Atraumatic, Normocephalic Neck: Normal Inspection, Supple, Full Range of Motion Respiratory/Chest: No Respiratory Distress, Lungs Clear, Normal Breath Sounds Cardiovascular: Normal Peripheral Pulses, Regular Rate, Rhythm, No Edema GI/Abdominal: Normal Bowel Sounds, Soft, Non-Tender Back Exam: Normal Inspection. No: CVA Tenderness (L), CVA Tenderness (R) Extremities: Normal Inspection, Pedal Edema (trace) Neurological: Alert, Confused, Disoriented. No: Oriented (person only) Psychiatric: Anxious Skin Exam: Warm, Dry, Intact, Normal Color Course - Vital Signs Last Recorded V/S: Last Vital Signs Temp 98.2 F 02/27/17 20:26 Pulse 79 02/27/17 20:26 Resp 18 02/27/17 20:26 BP 107/55 L 02/27/17 20:26 Pulse Ox 90 L 02/27/17 20:26 - Orders/Labs/Meds Orders: Active Orders 24 hr Category Date Time Status CULTURE BLOOD [BC] Stat Lab 02/27/17 19:35 Received CULTURE BLOOD [BC] Stat Lab 02/27/17 19:40 Received CULTURE URINE [RM] Stat Lab 02/27/17 19:10 Received Blood Culture x2 Reflex Set [OM.PC] Stat Oth 02/27/17 19:23 Ordered Labs: Laboratory Tests 02/27/17 02/27/17 02/27/17 Range/Units 19:10 19:35 19:35 WBC 8.7 (5.0-10.0) 10^3/uL RBC 3.73 L (4.6-6.2) 10^6/uL Hgb 10.4 L (14.0-18.0) g/dL Hct 32.9 L (40.0-54.0) % MCV 88.2 (80-100) fL MCH 27.9 (27.0-34.0) pg MCHC 31.6 L (33.0-35.0) g/dL Plt Count 428 (150-450) 10^3/uL Neut % (Auto) 77.2 H (42.2-75.2) % Lymph % (Auto) 12.0 L (20.5-50.1) % [place] % (Auto) 9.5 H (2-8) % Eos % (Auto) 1.1 (1.0-3.0) % Baso % (Auto) 0.2 (0.0-1.0) % Sodium 134 L (135-145) mmol/L Potassium 3.5 L (3.6-5.0) mmol/L Chloride 98 L (101-111) mmol/L Carbon Dioxide 28.0 (21.0-31.0) mmol/L Anion Gap 11.5 BUN 12 (7-18) mg/dL Creatinine 0.9 (0.6-1.3) mg/dL Est Cr Clr Drug Dosing 67.59 mL/min Estimated GFR (MDRD) > 60 BUN/Creatinine Ratio 13.33 Glucose 128 H (74-105) mg/dL Lactic Acid (0.5-2.2) mmol/L Calcium 8.5 (8.4-10.2) mg/dl Total Bilirubin 0.6 (0.2-1.0) mg/dL AST 14 (10-42) IU/L ALT 13 (10-60) IU/L Alkaline Phosphatase 133 H (42-121) IU/L Total Protein 6.8 (6.7-8.2) g/dl Albumin 2.5 L (3.2-5.5) g/dl Globulin 4.3 Albumin/Globulin Ratio 0.58 Urine Color Yellow (YELLOW) Urine Appearance Cloudy (CLEAR) Urine pH 8.5 (5.0-9.0) Ur Specific [place] 1.015 (1.005-1.030) Urine Protein 100 H (NEGATIVE) Urine Glucose (UA) Negative (NEGATIVE) Urine Ketones Negative (NEGATIVE) Urine Occult Blood Large H (NEGATIVE) Urine Nitrite Negative (NEGATIVE) Urine Bilirubin Negative (NEGATIVE) Urine Urobilinogen 1.0 (0.2-1.0) mg/dL Ur Leukocyte Esterase Large H (NEGATIVE) Urine RBC >100 H /HPF Urine WBC >100 H (0-5/HPF) /HPF Ur Epithelial Cells Rare /HPF Urine Bacteria Moderate H (0-FEW/HPF) /HPF 02/27/17 Range/Units 19:35 WBC (5.0-10.0) 10^3/uL RBC (4.6-6.2) 10^6/uL Hgb (14.0-18.0) g/dL Hct (40.0-54.0) % MCV (80-100) fL MCH (27.0-34.0) pg MCHC (33.0-35.0) g/dL Plt Count (150-450) 10^3/uL Neut % (Auto) (42.2-75.2) % Lymph % (Auto) (20.5-50.1) % [place] % (Auto) (2-8) % Eos % (Auto) (1.0-3.0) % Baso % (Auto) (0.0-1.0) % Sodium (135-145) mmol/L Potassium (3.6-5.0) mmol/L Chloride (101-111) mmol/L Carbon Dioxide (21.0-31.0) mmol/L Anion Gap BUN (7-18) mg/dL Creatinine (0.6-1.3) mg/dL Est Cr Clr Drug Dosing mL/min Estimated GFR (MDRD) BUN/Creatinine Ratio Glucose (74-105) mg/dL Lactic Acid 0.8 (0.5-2.2) mmol/L Calcium (8.4-10.2) mg/dl Total Bilirubin (0.2-1.0) mg/dL AST (10-42) IU/L ALT (10-60) IU/L Alkaline Phosphatase (42-121) IU/L Total Protein (6.7-8.2) g/dl Albumin (3.2-5.5) g/dl Globulin Albumin/Globulin Ratio Urine Color (YELLOW) Urine Appearance (CLEAR) Urine pH (5.0-9.0) Ur Specific [place] (1.005-1.030) Urine Protein (NEGATIVE) Urine Glucose (UA) (NEGATIVE) Urine Ketones (NEGATIVE) Urine Occult Blood (NEGATIVE) Urine Nitrite (NEGATIVE) Urine Bilirubin (NEGATIVE) Urine Urobilinogen (0.2-1.0) mg/dL Ur Leukocyte Esterase (NEGATIVE) Urine RBC /HPF Urine WBC (0-5/HPF) /HPF Ur Epithelial Cells /HPF Urine Bacteria (0-FEW/HPF) /HPF Meds: Medications Discontinued Medications Generic Name Dose Route Start Last Admin Trade Name Freq PRN Reason Stop Dose Admin Ciprofloxacin Confirm 02/27/17 21:45 Ciprofloxacin Hcl Administered 02/27/17 21:46 Dose 500 mg .ROUTE .STK-MED ONE Oxycodone HCl Confirm 02/27/17 21:36 Oxycodone Administered 02/27/17 21:37 Dose 10 mg .ROUTE .STK-MED ONE Oxycodone HCl Confirm 02/27/17 21:39 Oxycontin Administered 02/27/17 21:40 Dose 40 mg .ROUTE .STK-MED ONE - Radiology Interpretation Free Text/Narrative:: Flat and Upright Abdomen negative - Re-Assessments/Exams Free Text/Narrative Re-Assessment/Exam: 02/28/17 01:58 Family calming, patient calmer. Cooperative. Increasing sundowning through ED stay. Usually redirectable by daughter. Options discussed with family. Nothing to indicate need for acute hospitalization. Family and patient unhappy regarding NH care. Awaiting determination on bed in [place]. Family prefer not to return to [place] but patient unable to make up stairs to her home or his previous. Questioned hotel as option. Contact with [place] re patient and if any paperwork would need to be signed by daughter. Informed daughter that paper work would need to be completed . Prior to discharge, Daughter feeling return to NH would be likely for tonight and while awaiting alternative placement. Reviewed medications changes with daughter, with scheduled 4 times daily and additional for breakthrough pain. Discussed advantage of longer acting fentanyl patch. Will defer reordering that to PCP. 02/28/17 03:59 Departure - Departure Time of Disposition: 21:37 Disposition: DC/Tfer to [facility] Condition: Fair Clinical Impression: Chronic pain Qualifiers: Chronic pain type: chronic pain syndrome Qualified Code(s): G89.4 - Chronic pain syndrome Dementia Qualifiers: Dementia type: unspecified type Dementia behavioral disturbance: with behavioral disturbance Qualified Code(s): F03.91 - Unspecified dementia with behavioral disturbance Urinary tract infection Qualifiers: Urinary tract infection type: site unspecified Hematuria presence: with hematuria Qualified Code(s): N39.0 - Urinary tract infection, site not specified - Discharge Information Instructions: Pain Medicine Instructions, [id number] Referrals: Tad Reyes MD [Primary Care Provider] - Forms: ED Department Discharge Additional Instructions: follow up in clinic with primary care on Sunday Oncology appointment tomorrow as scheduled, discuss pain medication alternatives cipro 500mg one twice daily for 5 days increase Oxycodone 20mg to 4 times daily Breakthrough pain 5mg IR every 4 hours as needed - My Orders Last 24 Hours: My Active Orders 02/27/17 19:10 CULTURE URINE [RM] Stat 02/27/17 19:23 Blood Culture x2 Reflex Set [OM.PC] Stat 02/27/17 19:35 CULTURE BLOOD [BC] Stat 02/27/17 19:40 CULTURE BLOOD [BC] Stat - Assessment/Plan Last 24 Hours: My Active Orders 02/27/17 19:10 CULTURE URINE [RM] Stat 02/27/17 19:23 Blood Culture x2 Reflex Set [OM.PC] Stat 02/27/17 19:35 CULTURE BLOOD [BC] Stat 02/27/17 19:40 CULTURE BLOOD [BC] Stat
[2017-02-27] MEDS ORDERED: Ciprofloxacin 500 MG Tab ONE (21:45)
[2017-02-27] MEDS ORDERED: Ciprofloxacin 500 MG Tab PO ONE (21:45)
[2017-02-27] MEDS ORDERED: oxyCODONE ER 20 MG TAB.ER PO ONE (21:45)
[2017-02-27] MEDS ORDERED: oxyCODONE 5 MG Tab PO ONE (21:45)
== END 2017-02-27 21:54 ==
LOC: DL.ED 18:30
DX: G89.4 Chronic pain syndrome (principal); N39.0 Urinary tract infection, site not specified; F03.91 Unspecified dementia, unspecified severity, with behavioral disturbance; H54.7 Unspecified visual loss; E78.00 Pure hypercholesterolemia, unspecified; K21.9 Gastro-esophageal reflux disease without esophagitis; F32.9 Major depressive disorder, single episode, unspecified; Z98.49 Cataract extraction status, unspecified eye; Z88.8 Allergy status to other drugs, medicaments and biological substances; Z88.5 Allergy status to narcotic agent; Z79.899 Other long term (current) drug therapy; Z87.891 Personal history of nicotine dependence; Z98.890 Other specified postprocedural states; Z87.440 Personal history of urinary (tract) infections; Z96.641 Presence of right artificial hip joint
CPT/HCPCS: 36415; 80053; 81001; 83605; 85025; 87040; 87086; 87088; 87186; 99284; A9270-GY

== ENCOUNTER 2017-11-09 15:38 | Emergency (ER) | payer MEDICARE, BC ==
[2017-11-09 16:23] VITALS: BP 132/75
--- NOTE | 2017-11-09 19:00 | EDM.PDOC ---
ED HPI GENERAL MEDICAL PROBLEM - General Chief Complaint: General Stated Complaint: [facility]- PAIN IN HIS GROIN Time Seen by Provider: 11/09/17 16:45 Source of Information: Reports: Patient, Family, RN, RN Notes Reviewed History Limitations: Reports: No Limitations - History of Present Illness INITIAL COMMENTS - FREE TEXT/NARRATIVE: Pt presents to the ER with c/o continued pain to the left groin area as well as generalized pain elsewhere. He states he fell today at the [facility] and has pain the right arm/wrist. He states he hit his head, but did not get knocked out. Onset: Gradual Left Groin Pain Score (Numeric/FACES): 5 - Related Data Allergies Allergy/AdvReac Type Severity Reaction Status Date / Time lorazepam [From Ativan] Allergy Confusion Verified 11/10/17 15:01 morphine Allergy Confusion Verified 11/10/17 15:01 nitrofurantoin Allergy Other Verified 11/10/17 15:01 [From Macrobid] oxybutynin Allergy Cannot Verified 11/10/17 15:01 Remember phenazopyridine Allergy Other Verified 11/10/17 15:01 [From Pyridium] Home Meds: Home Meds Omeprazole [Prilosec] 20 mg PO DAILY 10/03/13 [History] Tamsulosin [Flomax] 0.4 mg PO BEDTIME 10/03/13 [History] Bicalutamide [Casodex] 1 tab PO DAILY 08/17/15 [History] Magnesium Hydroxide [Milk of Magnesia] 30 ml PO DAILY PRN 02/27/17 [History] Acetaminophen [Tylenol] 650 mg PO Q8H 11/09/17 [History] Ascorbate Calcium [Vitamin C] 500 mg PO DAILY 11/09/17 [History] DULoxetine [Cymbalta] 60 mg PO DAILY 11/09/17 [History] Dexamethasone 1 mg PO BIDMEALS 11/09/17 [History] Donepezil HCl [Aricept] 10 mg PO DAILY 11/09/17 [History] Gabapentin [Neurontin] 100 mg PO TID 11/09/17 [History] L.acidoph,Paracasei, B.lactis [Probiotic] 1 each PO DAILY 11/09/17 [History] Melatonin 6 mg PO DAILY 11/09/17 [History] Polyethylene Glycol 3350 [MiraLAX] 17 gm PO BID 11/09/17 [History] busPIRone [Buspar] 20 mg PO TID 11/09/17 [History] Docusate Sodium/Sennosides [Senna Plus] 1 tab PO BID 11/10/17 [History] oxyCODONE 5 mg PO Q8H 11/10/17 [History] Past Medical History HEENT History: Reports: Cataract, Impaired Vision, Other (See Below) Other HEENT History: wears glasses Cardiovascular History: Reports: High Cholesterol Respiratory History: Reports: None Gastrointestinal History: Reports: Chronic Constipation, GERD Genitourinary History: Reports: BPH, UTI, Recurrent, Other (See Below) Other Genitourinary History: dilalation of urethra Musculoskeletal History: Reports: Back Pain, Chronic, Fracture Other Musculoskeletal History: left femur surgery Neurological History: Reports: None Psychiatric History: Reports: Depression Endocrine/Metabolic History: Reports: None Hematologic History: Reports: None Immunologic History: Reports: None Oncologic (Cancer) History: Reports: Prostate Dermatologic History: Reports: None - Infectious Disease History Infectious Disease History: Reports: Chicken Pox, Measles, Mumps, Other (See Below) - Past Surgical History Head Surgeries/Procedures: Reports: None HEENT Surgical History: Reports: None, Cataract Surgery Cardiovascular Surgical History: Reports: None GI Surgical History: Reports: Colonoscopy Other Male Surgeries/Procedures: prostate problems Musculoskeletal Surgical History: Reports: Other (See Below) Other Musculoskeletal Surgeries/Procedures:: back surg, R) hip joint replacement Social & Family History - Family History Family Medical History: Noncontributory Other Hematologic Family History: mother of cerebral aneurysm - Tobacco Use Smoking Status *Q: Former Smoker Years of Tobacco use: 20 Packs/Tins Daily: 0.5 Used Tobacco, but Quit: No Month/Year Tobacco Last Used: when he was 41 years old Second Hand Smoke Exposure: No - Caffeine Use Caffeine Use: Reports: Coffee, Soda - Alcohol Use Days Per Week of Alcohol Use: 0 - Recreational Drug Use Recreational Drug Use: No - Living Situation & Occupation Occupation: Retired ED ROS GENERAL - Review of Systems Review Of Systems: ROS reveals no pertinent complaints other than HPI. ED EXAM, GENERAL - Physical Exam Exam: See Below Exam Limited By: No Limitations General Appearance: Alert, WD/WN, Mild Distress Eye Exam: Bilateral Eye: EOMI Ears: Normal External Exam, Hearing Grossly Normal Nose: Normal Inspection Throat/Mouth: Normal Inspection, Normal Voice, No Airway Compromise Head: Atraumatic Neck: Normal Inspection Respiratory/Chest: No Respiratory Distress, Lungs Clear, Normal Breath Sounds, No Accessory Muscle Use Cardiovascular: Normal Peripheral Pulses, Regular Rate, Rhythm, No Edema, No Gallop, No JVD, No Murmur, No Rub Peripheral Pulses: 1+: Dorsalis Pedis (L), Dorsalis Pedis (R), 2+: Radial (L), Radial (R) GI/Abdominal: Normal Bowel Sounds, Soft, Non-Tender (Male) Exam: Scrotum Tenderness (L), Testicular Tenderness (L). No: Scrotal Swelling, Testicular Mass Rectal (Males) Exam: Deferred Back Exam: Normal Inspection, Decreased Range of Motion Extremities: Normal Inspection, Limited Range of Motion Neurological: Alert, Oriented Psychiatric: Normal Affect, Normal Mood Skin Exam: Warm, Dry, Intact, Normal Color, No Rash Lymphatic: No Adenopathy Course - Vital Signs Last Recorded V/S: Last Vital Signs Temp 98.7 F 11/09/17 16:15 Pulse 95 11/09/17 16:15 Resp 18 11/09/17 16:15 BP 132/75 11/09/17 16:15 Pulse Ox 94 L 11/09/17 16:15 - Orders/Labs/Meds Labs: Laboratory Tests 11/09/17 Range/Units 17:40 Urine Color Yellow (YELLOW) Urine Appearance Cloudy (CLEAR) Urine pH 6.0 (5.0-9.0) Ur Specific [place] 1.015 (1.005-1.030) Urine Protein 30 H (NEGATIVE) Urine Glucose (UA) 500 H (NEGATIVE) Urine Ketones Negative (NEGATIVE) Urine Occult Blood Small H (NEGATIVE) Urine Nitrite Negative (NEGATIVE) Urine Bilirubin Negative (NEGATIVE) Urine Urobilinogen 0.2 (0.2-1.0) mg/dL Ur Leukocyte Esterase Trace H (NEGATIVE) Urine RBC 20-30 H /HPF Urine WBC >100 H (0-5/HPF) /HPF Ur Epithelial Cells Few /HPF Amorphous Sediment Few (0/HPF) /HPF Urine Bacteria Moderate H (0-FEW/HPF) /HPF Urine Mucus Rare /LPF - Radiology Interpretation Free Text/Narrative:: Abdomen/Pelvis CT : Large amount of callus formation is noted at the pubic symphysis with a gas collection again noted within the midline. This was present on the prior study. Findings may be secondary to chronic infection. Bilateral fat filled inguinal hernias are present. See rad report Departure - Departure Time of Disposition: 18:58 Disposition: Home, Self-Care 01 Condition: Fair Clinical Impression: Muscle strain - Discharge Information Instructions: Adductor Muscle Strain, Muscle Strain, [id number] Referrals: Tad Reyes MD [Primary Care Provider] - Forms: ED Department Discharge Additional Instructions: Follow up with Ortho Follow up with Dr. Stiles
== END 2017-11-09 19:15 | disposition home or self-care (01) ==
LOC: DL.ED 15:38
DX: S39.011A Strain of muscle, fascia and tendon of abdomen, initial encounter (principal); Z88.5 Allergy status to narcotic agent; Z88.8 Allergy status to other drugs, medicaments and biological substances; Z79.899 Other long term (current) drug therapy; Z87.891 Personal history of nicotine dependence; W19.XXXA Unspecified fall, initial encounter
CPT/HCPCS: 72192; 81001; 99284

== ENCOUNTER 2017-11-10 09:31 | Inpatient (IN) | payer MEDICARE, BC ==
--- NOTE | 2017-11-10 09:58 | EDM.PDOC ---
ED HPI GENERAL MEDICAL PROBLEM - General Chief Complaint: Lower Extremity Injury/Pain Stated Complaint: fall [id number] Time Seen by Provider: 11/10/17 09:57 Source of Information: Reports: Patient, Family, RN, RN Notes Reviewed History Limitations: Reports: Other (some confusion from patient) - History of Present Illness INITIAL COMMENTS - FREE TEXT/NARRATIVE: Pt presents to the ER with his daughter. Pt states he was seen in the ER last evening for left groin pain. He states this morning he had a fall at the assisted living where he lives. He states he did hit his head but did not lose consciousness. Patient states he stuck his right arm out to catch himself and has pain in the right wrist. He also c/o pain with breathing and coughing in the right anterior chest. Patient denies N/V/D, fever or chills. Pt daughter states that his PCP and the assistive living have been decreasing his pain medication after a pelvic fracture in November of 2016. Onset: Gradual Duration: Waxing/Waning Location: Reports: Other (left groin) Improves with: Reports: None Worsens with: Reports: None Left Groin Pain Score (Numeric/FACES): 8 Right Chest Pain Score (Numeric/FACES): 6 - Related Data Allergies Allergy/AdvReac Type Severity Reaction Status Date / Time lorazepam [From Ativan] Allergy Confusion Verified 11/10/17 09:57 morphine Allergy Confusion Verified 11/10/17 09:57 nitrofurantoin Allergy Other Verified 11/10/17 09:57 [From Macrobid] oxybutynin Allergy Cannot Verified 11/10/17 09:57 Remember phenazopyridine Allergy Other Verified 11/10/17 09:57 [From Pyridium] Home Meds: Home Meds Omeprazole [Prilosec] 20 mg PO DAILY 10/03/13 [History] Tamsulosin [Flomax] 0.4 mg PO BEDTIME 10/03/13 [History] Bicalutamide [Casodex] 1 tab PO DAILY 08/17/15 [History] Magnesium Hydroxide [Milk of Magnesia] 30 ml PO DAILY PRN 02/27/17 [History] Acetaminophen [Tylenol] 650 mg PO Q8H 11/09/17 [History] Ascorbate Calcium [Vitamin C] 500 mg PO DAILY 11/09/17 [History] DULoxetine [Cymbalta] 90 mg PO DAILY 11/09/17 [History] Dexamethasone 1 mg PO BIDMEALS 11/09/17 [History] Donepezil HCl [Aricept] 10 mg PO DAILY 11/09/17 [History] Gabapentin [Neurontin] 100 mg PO TID 11/09/17 [History] L.acidoph,Paracasei, B.lactis [Probiotic] 1 each PO DAILY 11/09/17 [History] Melatonin 6 mg PO DAILY 11/09/17 [History] Polyethylene Glycol 3350 [MiraLAX] 17 gm PO BID 11/09/17 [History] busPIRone [Buspar] 20 mg PO TID 11/09/17 [History] Docusate Sodium/Sennosides [Senna Plus] 1 tab PO BID 11/10/17 [History] oxyCODONE 5 mg PO Q8H 11/10/17 [History] Past Medical History HEENT History: Reports: Cataract, Impaired Vision, Other (See Below) Other HEENT History: wears glasses Cardiovascular History: Reports: High Cholesterol Respiratory History: Reports: None Gastrointestinal History: Reports: Chronic Constipation, GERD Genitourinary History: Reports: BPH, UTI, Recurrent, Other (See Below) Other Genitourinary History: dilalation of urethra Musculoskeletal History: Reports: Back Pain, Chronic, Fracture Other Musculoskeletal History: left femur surgery Neurological History: Reports: None Psychiatric History: Reports: Depression Endocrine/Metabolic History: Reports: None Hematologic History: Reports: None Immunologic History: Reports: None Oncologic (Cancer) History: Reports: Prostate Dermatologic History: Reports: None - Infectious Disease History Infectious Disease History: Reports: Chicken Pox, Measles, Mumps, Other (See Below) - Past Surgical History Head Surgeries/Procedures: Reports: None HEENT Surgical History: Reports: None, Cataract Surgery Cardiovascular Surgical History: Reports: None GI Surgical History: Reports: Colonoscopy Other Male Surgeries/Procedures: prostate problems Musculoskeletal Surgical History: Reports: Other (See Below) Other Musculoskeletal Surgeries/Procedures:: back surg, R) hip joint replacement Social & Family History - Family History Family Medical History: Noncontributory Other Hematologic Family History: mother of cerebral aneurysm - Tobacco Use Smoking Status *Q: Former Smoker Years of Tobacco use: 20 Packs/Tins Daily: 0.5 Used Tobacco, but Quit: No Month/Year Tobacco Last Used: when he was 41 years old Second Hand Smoke Exposure: No - Caffeine Use Caffeine Use: Reports: Coffee, Soda, Tea - Alcohol Use Days Per Week of Alcohol Use: 0 - Recreational Drug Use Recreational Drug Use: No - Living Situation & Occupation Occupation: Retired Review of Systems - Review of Systems Review Of Systems: ROS reveals no pertinent complaints other than HPI. ED EXAM, GENERAL - Physical Exam Exam: See Below Exam Limited By: No Limitations General Appearance: Alert, WD/WN, No Apparent Distress Eye Exam: Bilateral Eye: EOMI, Normal Inspection Ears: Normal External Exam, Hearing Grossly Normal Nose: Normal Inspection Throat/Mouth: Normal Inspection, Normal Voice, No Airway Compromise Head: Atraumatic, Normocephalic, Other (No evidence of swelling or ecchymosis on head) Neck: Normal Inspection, Supple, Non-Tender, Full Range of Motion Respiratory/Chest: No Respiratory Distress, Lungs Clear, Normal Breath Sounds, No Accessory Muscle Use, Other (R Anterior chest wall tenderness.) Cardiovascular: Normal Peripheral Pulses, Regular Rate, Rhythm, No Edema, No Gallop, No JVD, No Murmur, No Rub Peripheral Pulses: 2+: Radial (L), Radial (R) GI/Abdominal: Normal Bowel Sounds, Soft, Non-Tender, No Organomegaly, No Distention, No Abnormal Bruit, No Mass (Male) Exam: Deferred Rectal (Males) Exam: Deferred Back Exam: Normal Inspection, Decreased Range of Motion Extremities: Normal Inspection Neurological: Alert, Oriented, Normal Cognition, Normal Reflexes, No Motor/ Sensory Deficits Psychiatric: Normal Affect, Normal Mood Skin Exam: Warm, Dry, Intact, Normal Color, No Rash Lymphatic: No Adenopathy Course - Vital Signs Last Recorded V/S: Last Vital Signs Temp 97.2 F 11/10/17 09:40 Pulse 102 H 11/10/17 09:40 Resp 16 11/10/17 09:40 BP 135/72 11/10/17 09:40 Pulse Ox 93 L 11/10/17 09:40 - Orders/Labs/Meds Orders: Active Orders 24 hr Category Date Time Status Blood Glucose Check, Bedside [RC] ONETIME Care 11/10/17 11:14 Active CULTURE BLOOD [BC] Stat Lab 11/10/17 11:49 Ordered CULTURE BLOOD [BC] Stat Lab 11/10/17 11:49 Ordered CULTURE URINE [RM] Stat Lab 11/10/17 11:48 Ordered LACTIC ACID [CHEM] Stat Lab 11/10/17 11:47 Ordered UA W/MICROSCOPIC [URIN] Stat Lab 11/10/17 10:25 Ordered Blood Culture x2 Reflex Set [OM.PC] Stat Oth 11/10/17 11:46 Ordered Labs: Laboratory Tests 11/10/17 11/10/17 11/10/17 Range/Units 10:18 10:18 10:25 WBC 7.7 (5.0-10.0) 10^3/uL RBC 4.13 L (4.6-6.2) 10^6/uL Hgb 12.2 L D (14.0-18.0) g/dL Hct 37.5 L (40.0-54.0) % MCV 90.8 (80-100) fL MCH 29.5 (27.0-34.0) pg MCHC 32.5 L (33.0-35.0) g/dL Plt Count 184 D (150-450) 10^3/uL Neut % (Auto) 80.0 H (42.2-75.2) % Lymph % (Auto) 11.3 L (20.5-50.1) % [place] % (Auto) 8.3 H (2-8) % Eos % (Auto) 0.3 L (1.0-3.0) % Baso % (Auto) 0.1 (0.0-1.0) % Sodium 129 L (135-145) mmol/L Potassium 4.0 (3.6-5.0) mmol/L Chloride 93 L (101-111) mmol/L Carbon Dioxide 27.0 (21.0-31.0) mmol/L Anion Gap 13.0 BUN 21 H (7-18) mg/dL Creatinine 0.9 (0.6-1.3) mg/dL Est Cr Clr Drug Dosing 62.28 mL/min Estimated GFR (MDRD) > 60 BUN/Creatinine Ratio 23.33 Glucose 501 H* (74-105) mg/dL POC Glucose (83-110) mg/dl Calcium 8.7 (8.4-10.2) mg/dl Total Bilirubin 0.7 (0.2-1.0) mg/dL AST 26 (10-42) IU/L ALT 24 (10-60) IU/L Alkaline Phosphatase 72 (42-121) IU/L Total Protein 6.6 L (6.7-8.2) g/dl Albumin 2.7 L (3.2-5.5) g/dl Globulin 3.9 Albumin/Globulin Ratio 0.69 Urine Color Yellow (YELLOW) Urine Appearance Cloudy (CLEAR) Urine pH 6.5 (5.0-9.0) Ur Specific [place] 1.015 (1.005-1.030) Urine Protein 30 H (NEGATIVE) Urine Glucose (UA) 500 H (NEGATIVE) Urine Ketones Negative (NEGATIVE) Urine Occult Blood Small H (NEGATIVE) Urine Nitrite Positive H (NEGATIVE) Urine Bilirubin Negative (NEGATIVE) Urine Urobilinogen 0.2 (0.2-1.0) mg/dL Ur Leukocyte Esterase Trace H (NEGATIVE) Urine RBC 0-5 /HPF Urine WBC >100 H (0-5/HPF) /HPF Ur Epithelial Cells Few /HPF Urine Bacteria Many H (0-FEW/HPF) /HPF 11/10/17 Range/Units 11:16 WBC (5.0-10.0) 10^3/uL RBC (4.6-6.2) 10^6/uL Hgb (14.0-18.0) g/dL Hct (40.0-54.0) % MCV (80-100) fL MCH (27.0-34.0) pg MCHC (33.0-35.0) g/dL Plt Count (150-450) 10^3/uL Neut % (Auto) (42.2-75.2) % Lymph % (Auto) (20.5-50.1) % [place] % (Auto) (2-8) % Eos % (Auto) (1.0-3.0) % Baso % (Auto) (0.0-1.0) % Sodium (135-145) mmol/L Potassium (3.6-5.0) mmol/L Chloride (101-111) mmol/L Carbon Dioxide (21.0-31.0) mmol/L Anion Gap BUN (7-18) mg/dL Creatinine (0.6-1.3) mg/dL Est Cr Clr Drug Dosing mL/min Estimated GFR (MDRD) BUN/Creatinine Ratio Glucose (74-105) mg/dL POC Glucose 478 H* (83-110) mg/dl Calcium (8.4-10.2) mg/dl Total Bilirubin (0.2-1.0) mg/dL AST (10-42) IU/L ALT (10-60) IU/L Alkaline Phosphatase (42-121) IU/L Total Protein (6.7-8.2) g/dl Albumin (3.2-5.5) g/dl Globulin Albumin/Globulin Ratio Urine Color (YELLOW) Urine Appearance (CLEAR) Urine pH (5.0-9.0) Ur Specific [place] (1.005-1.030) Urine Protein (NEGATIVE) Urine Glucose (UA) (NEGATIVE) Urine Ketones (NEGATIVE) Urine Occult Blood (NEGATIVE) Urine Nitrite (NEGATIVE) Urine Bilirubin (NEGATIVE) Urine Urobilinogen (0.2-1.0) mg/dL Ur Leukocyte Esterase (NEGATIVE) Urine RBC /HPF Urine WBC (0-5/HPF) /HPF Ur Epithelial Cells /HPF Urine Bacteria (0-FEW/HPF) /HPF Meds: Medications Discontinued Medications Generic Name Dose Route Start Last Admin Trade Name Freq PRN Reason Stop Dose Admin Oxycodone HCl 10 mg 11/10/17 10:21 11/10/17 10:36 Oxycontin PO 11/10/17 10:22 10 mg ONETIME ONE Administration - Radiology Interpretation Free Text/Narrative:: Chest xray: No acute findings Right wrist xray: No acute fracture See rad report Departure - Departure Time of Disposition: 11:49 Disposition: Refer to Observation Condition: Fair Clinical Impression: Hyperglycemia, Left groin pain UTI (urinary tract infection) Qualifiers: Urinary tract infection type: site unspecified Hematuria presence: with hematuria Qualified Code(s): N39.0 - Urinary tract infection, site not specified - Discharge Information Forms: ED Department Discharge - My Orders Last 24 Hours: My Active Orders 11/10/17 10:25 UA W/MICROSCOPIC [URIN] Stat 11/10/17 11:14 Blood Glucose Check, Bedside [RC] ONETIME 11/10/17 11:46 Blood Culture x2 Reflex Set [OM.PC] Stat 11/10/17 11:47 LACTIC ACID [CHEM] Stat 11/10/17 11:48 CULTURE URINE [RM] Stat 11/10/17 11:49 CULTURE BLOOD [BC] Stat CULTURE BLOOD [BC] Stat - Assessment/Plan Last 24 Hours: My Active Orders 11/10/17 10:25 UA W/MICROSCOPIC [URIN] Stat 11/10/17 11:14 Blood Glucose Check, Bedside [RC] ONETIME 11/10/17 11:46 Blood Culture x2 Reflex Set [OM.PC] Stat 11/10/17 11:47 LACTIC ACID [CHEM] Stat 11/10/17 11:48 CULTURE URINE [RM] Stat 11/10/17 11:49 CULTURE BLOOD [BC] Stat CULTURE BLOOD [BC] Stat
[2017-11-10] MEDS ORDERED: oxyCODONE ER 10 MG TAB.ER PO ONE (10:21)
[2017-11-10 11:00] LABS: CHLORIDE,CL 93 mmol/L (101-111); SODIUM,NA 129 mmol/L (135-145)
[2017-11-10] MEDS ORDERED: oxyCODONE 5 MG Tab PO PRN (13:19)
[2017-11-10] MEDS ORDERED: Ondansetron 4 MG Tab.DIS PO PRN (13:19)
[2017-11-10] MEDS ORDERED: Morphine 2 MG/ML Syringe IVPUSH PRN (13:19)
[2017-11-10] MEDS ORDERED: Magnesium Hydroxide 400 MG/5 ML Susp 30 ML Cup PO PRN (13:23)
[2017-11-10] MEDS ORDERED: 50% Dextrose in Water 50 ML Syringe IVPUSH PRN (13:26)
[2017-11-10] MEDS: Insulin Aspart 100 Units/ML 3 ML Pen SUBCUT SCH ×5 (13:59→22:25)
[2017-11-10] MEDS: cefTRIAXone 1 GM Vial IV SCH (14:01)
[2017-11-10] MEDS: Sodium Chloride 0.9% 1,000 ML IV SCH (14:02)
--- NOTE | 2017-11-10 14:04 | HP ---
CHIEF COMPLAINT: Increasing weakness, tiredness, and confusion. HISTORY OF PRESENT ILLNESS: Mr. Tj Angela is an 82-year-old male with medical history significant for prostate cancer in the past, requiring radiation treatments and radiation beads and Lupron treatment, and history of pelvic fracture in the past, presented to the ER last night with complaints of having pain to the left groin side and was discharged home. After going home, the patient had a fall in the bathroom last night and was brought back to the emergency room; and further evaluation showed evidence of possible urinary tract infection, hyponatremia, and dehydration, requiring admission to the hospital. At this time, the patient complains of pain to the groin side which is mostly on the left side; 3 to 4/10 in intensity; chronic in nature; aggravated on exertion, ambulation, and sitting up; relieved with pain medication; nonradiating type of pain; not associated with nausea or vomiting. Denies any fevers or chills in the last few days. No complaints of chest pain. No complaints of shortness of breath. No complaints of cough with sputum. No complaints of abdominal pain. The patient claims that he had fallen in the past and had a pelvic fracture, and since then, the patient had this ongoing pain which is intermittent in nature. He denies any diarrhea. He denies any burning micturition. The patient denied any history of chest pains on exertion. No history of dyspnea on exertion. No history of orthopnea or paroxysmal nocturnal dyspnea. The patient denied any history of hematemesis, hematochezia, or melenic stools. Normal bowel and bladder habits, otherwise. REVIEW OF SYSTEMS: A complete review of system including skin; ear, nose, and throat; cardiovascular system; respiratory system; gastrointestinal system; genitourinary system; hematology/oncology; neurology; allergy; immunology; constitutional were all evaluated and were negative except for the above-said notes. PAST MEDICAL HISTORY: Significant for prostate cancer, requiring radiation treatment, radiation beads, and Lupron treatment. PAST SURGICAL HISTORY: Significant for: 1. Hip fracture repair. 2. Femur fracture repair. 3. Radiation treatment. FAMILY HISTORY: None significant as per the patient. SOCIAL HISTORY: The patient had history of smoking in the past, but quit smoking many years back and quit drinking alcohol many years back. ALLERGIC HISTORY: The patient noted to have allergy to Ativan, morphine, nitrofurantoin, oxybutynin, and Pyridium. MEDICATIONS: Home medications include: 1. Milk of magnesia 30 mL daily as needed. 2. Oxycodone 5 mg every 8 hours. 3. Tylenol 650 mg every 8 hours. 4. Neurontin 100 mg 3 times a day. 5. Docusate sodium 1 tablet twice a day. 6. Flomax 0.4 mg at bedtime. 7. Dexamethasone 1 mg twice daily. 8. Omeprazole 20 mg daily. 9. Aricept 10 mg daily. 10.Vitamin C 500 mg daily. 11.Melatonin 6 mg daily. 12.Cymbalta 90 mg daily. 13.BuSpar 20 mg 3 times a day. PHYSICAL EXAMINATION: Vital Signs: Temperature of 97.2, pulse of 102, blood pressure 135/72, respiratory rate of 16, and saturating at 93%. General Appearance: The patient is well oriented to time, place, and person. Follows commands spontaneously. Cardiovascular System: S1 and S2 heard with normal intensity. No gallops. Respiratory System: Clear to auscultation bilaterally. No wheeze. No crepitations. Abdomen: Soft. Bowel sounds positive. Nontender. No rigidity. No guarding. No rebound tenderness. Extremities: No edema in the bilateral lower extremities. Groin: The patient has normal testicles in place. No hernia. No erythema. No swelling. No discharge noted on groin exam. LABORATORY DATA: 1. WBC 7.7, hemoglobin 12.2, hematocrit 37.5, platelet count 184. 2. Sodium 129, potassium 4, chloride 93, bicarb 27, BUN 21, creatinine 0.9, glucose 501. 3. Lactic acid 1.5, calcium 8.7, total bilirubin 0.7, AST 26, ALT 24, alkaline phosphatase 72. 4. Urinalysis positive for nitrites, trace leukocyte esterase, wbc's greater than 100, many bacteria. IMAGIN. X-ray of the right wrist, no acute fracture. 2. X-ray of the chest, no acute pulmonary disease. 3. CT scan of the pelvis shows large amount of callus formation noted at the pubic symphysis with a gas collection again noted within the midline. This was present on the prior study. Findings may be secondary to chronic infection and bilateral fat-filled inguinal hernia. This is when compared to a CAT scan done in 08/2017. ASSESSMENT: 1. Acute encephalopathy, improved. 2. Urinary tract infection. 3. Hyponatremia. 4. Hyperglycemia. 5. History of prostate cancer, requiring radiation treatment. PLAN: 1. Urinary tract infection. The patient presents with a UTI leading to acute encephalopathy. The patient will be admitted to the hospital. We will have him on IV antibiotic ceftriaxone. We will obtain urine cultures, blood cultures, and titrate the antibiotics once we have the culture reports available. Closely follow. 2. Hyponatremia. This could be resulting from dehydration. We will keep him hydrated with IV fluids. Recheck a basic metabolic panel in the a.m. 3. Acute encephalopathy. The patient was noted to be confused as per family members this morning. The patient appears to be well oriented to time, place, and person. We will closely follow. The patient has underlying dementia, on Aricept. 4. Anemia. This could be anemia of chronic disease. The patient denied any hematemesis, hematochezia, or melenic stools. 5. Abnormal CT scan. The patient had an abnormal CT scan of the pelvis, but there is a callus formation with gas filled in the midline. This has been stable since August. Less likely, we are dealing with any osteomyelitis as in the last 3 months, the patient would have progressed to worse if there is a true osteomyelitis, and moreover, the patient had radiation treatment and pelvic fractures in the past which could have resulted in the following changes. We will closely follow the patient. We will follow the blood cultures. He might need Orthopedic evaluation as an outpatient when he seems more stable. 6. DVT prophylaxis. We will have him on Lovenox for DVT prophylaxis. 7. Code status. The patient wants to be full code. 8. Discussed with family members at bedside. Discussed with Priya, ER physician, regarding the plan of care. Reviewed the labs and medications. Reviewed the old charts. [facility] /[id number]
[2017-11-10] MEDS: oxyCODONE 5 MG Tab PO SCH ×2 (14:29→21:39)
[2017-11-10] MEDS: Acetaminophen 325 MG Tab PO SCH ×2 (14:30→21:44)
[2017-11-10] MEDS: Gabapentin 100 MG Cap PO SCH ×2 (14:31→21:38)
[2017-11-10] MEDS ORDERED: Sodium Chloride 0.9% 10 ML Syringe FLUSH PRN (15:08)
[2017-11-10] MEDS: Tamsulosin 0.4 MG Cap.ER PO SCH (21:38)
[2017-11-10] MEDS: Insulin Detemir 100 Units/ML 3 ML Pen SUBCUT SCH ×3 (21:40→22:24)
[2017-11-10] MEDS: Polyethylene Glycol 3350 Powder 17 GM Packet PO SCH (21:43)
[2017-11-10] MEDS: MELATONIN 6 MG PO SCH (22:29)
[2017-11-11] MEDS: Sodium Chloride 0.9% 1,000 ML IV SCH (03:27)
[2017-11-11] MEDS: Omeprazole 20 MG Cap.CR PO SCH (05:53)
[2017-11-11] MEDS: Acetaminophen 325 MG Tab PO SCH ×3 (05:53→21:33)
[2017-11-11] MEDS: oxyCODONE 5 MG Tab PO SCH ×3 (05:54→21:34)
[2017-11-11 06:58] LABS: ANION GAP 11.7; CHLORIDE,CL 96 mmol/L (101-111); SODIUM,NA 134 mmol/L (135-145)
[2017-11-11] MEDS: Insulin Aspart 100 Units/ML 3 ML Pen SUBCUT SCH ×4 (09:05→21:39)
[2017-11-11] MEDS: Gabapentin 100 MG Cap PO SCH ×3 (09:05→21:35)
[2017-11-11] MEDS: Ascorbic Acid 500 MG Tab PO SCH ×2 (09:05→09:07)
[2017-11-11] MEDS: Donepezil 10 MG Tab PO SCH (09:08)
[2017-11-11] MEDS: DULoxetine 30 MG Cap PO SCH (09:09)
[2017-11-11] MEDS: Enoxaparin 40 MG/0.4 ML Syringe SUBCUT SCH (09:12)
[2017-11-11] MEDS: BICALUTAMIDE PO SCH (09:15)
[2017-11-11] MEDS: CULTURELLE PO SCH (09:16)
[2017-11-11] MEDS: Polyethylene Glycol 3350 Powder 17 GM Packet PO SCH ×2 (09:16→21:33)
--- NOTE | 2017-11-11 12:42 | PN ---
DATE: 11/11/2017 SUBJECTIVE: Mr. Tj Angela is an 82-year-old male with medical history significant for prostate cancer in the past requiring radiation treatment, radiation beads, and Lupron treatment; history of pelvic fracture in the past; admitted with having a fall and noted to have urinary tract infection at the time of admission. For the last 24 hours, the patient was noted to have elevated blood sugars. We tried to give insulin, but the patient declines to take any insulin. He denies any chest pain. No shortness of breath. No abdominal pain. No nausea. No vomiting. No diarrhea. He keeps requesting to be sent home, but the patient was explained about the seriousness of his infection. REVIEW OF SYSTEMS: Cardiovascular, respiratory, gastrointestinal, neurology, constitutional were all evaluated. PHYSICAL EXAMINATION: Vital Signs: Temperature of 96.8, pulse of 82, blood pressure 149/78, respiratory rate of 20, and saturating at 96% on room air. General Appearance: The patient is well oriented to time, place, and person. Follows commands spontaneously. Cardiovascular System: S1 and S2 heard with normal intensity. No gallops. Respiratory System: Clear to auscultation bilaterally. No wheeze. No crepitations. Abdomen: Bowel sounds positive. Nontender. No rigidity. No guarding. No rebound tenderness. Extremities: No edema in the bilateral lower extremities. Neurology: No gross focal neurological deficit. MEDICATIONS: Reviewed. Continue with ceftriaxone 1 g daily. The patient is on insulin, but the patient declines to take insulin. Continue with omeprazole for now. LABORATORY DATA: Labs reviewed. 1. WBC 7.8, hemoglobin 12, hematocrit 37, platelet count 204. 2. Sodium 134, potassium 3.7, chloride 96, bicarb 30, BUN 18, creatinine 0.7, glucose 251. 3. Urine culture is showing greater than 100,000 colony-forming units, gram- negative percy. ASSESSMENT: 1. Urinary tract infection. 2. Hyperglycemia with possible underlying type 2 diabetes mellitus. 3. Acute encephalopathy, resolved. 4. Hyponatremia. 5. History of prostate cancer. PLAN: 1. Urinary tract infection. Urine culture is positive for gram-negative rods. He is currently on ceftriaxone. He remains afebrile. No leukocytosis noted at this time. Continue with current IV antibiotics. We will follow with the susceptibility and identification of the bacteria in the culture. 2. Acute encephalopathy, resolved. The patient is not confused at this time. 3. Hyponatremia, improving. The patient was noted to have sodium of 129 at the time of admission. This has improved with IV normal saline. Recheck a basic metabolic panel in the a.m. 4. Hyperglycemia. The patient could have underlying borderline diabetes. We ordered a hemoglobin A1c. Await for the report. The patient was explained about ill effects of hyperglycemia on his health and encouraged him to take insulin while in the hospital with underlying infection. We will closely follow the patient. 5. Anemia. This could be anemia of chronic disease. The patient denies any hematemesis, hematochezia, or melenic stools. 6. Discussed with the family members at bedside. [facility] /[id number]
[2017-11-11] MEDS: cefTRIAXone 1 GM Vial IV SCH (13:46)
[2017-11-11] MEDS: Tamsulosin 0.4 MG Cap.ER PO SCH (21:35)
[2017-11-11] MEDS: MELATONIN 6 MG PO SCH (21:38)
[2017-11-11] MEDS: Insulin Detemir 100 Units/ML 3 ML Pen SUBCUT SCH (21:41)
[2017-11-12] MEDS: oxyCODONE 5 MG Tab PO SCH (04:58)
[2017-11-12] MEDS: Acetaminophen 325 MG Tab PO SCH (04:59)
[2017-11-12] MEDS: Omeprazole 20 MG Cap.CR PO SCH (05:00)
[2017-11-12] MEDS: Polyethylene Glycol 3350 Powder 17 GM Packet PO SCH (09:47)
[2017-11-12] MEDS: BICALUTAMIDE PO SCH (09:47)
[2017-11-12] MEDS: Donepezil 10 MG Tab PO SCH (09:47)
[2017-11-12] MEDS: Insulin Aspart 100 Units/ML 3 ML Pen SUBCUT SCH (09:47)
[2017-11-12] MEDS: DULoxetine 30 MG Cap PO SCH (09:47)
[2017-11-12] MEDS: Gabapentin 100 MG Cap PO SCH (09:47)
[2017-11-12] MEDS: Enoxaparin 40 MG/0.4 ML Syringe SUBCUT SCH (09:47)
[2017-11-12] MEDS: CULTURELLE PO SCH (09:47)
[2017-11-12] MEDS: Ascorbic Acid 500 MG Tab PO SCH (09:48)
[2017-11-12] MEDS ORDERED: Ciprofloxacin 500 MG Tab PO SCH (10:00)
[2017-11-12 11:23] VITALS: BP 139/74
[2017-11-12] MEDS ORDERED: Gabapentin 100 MG Cap PO ONE (11:43)
[2017-11-12] MEDS ORDERED: DULoxetine 30 MG Cap PO ONE (11:43)
[2017-11-12] MEDS ORDERED: Donepezil 10 MG Tab PO ONE (11:43)
[2017-11-12] MEDS ORDERED: Polyethylene Glycol 3350 Powder 17 GM Packet PO ONE (11:43)
[2017-11-12] MEDS ORDERED: Ascorbic Acid 500 MG Tab PO ONE (11:43)
[2017-11-12] MEDS ORDERED: Enoxaparin 40 MG/0.4 ML Syringe SUBCUT ONE (11:43)
--- NOTE | 2017-11-12 15:55 | DISCH ---
ADMITTING DIAGNOSES: 1. Urinary tract infection. 2. Acute encephalopathy. 3. Hyponatremia. 4. Hyperglycemia. DISCHARGE DIAGNOSES: 1. Acute encephalopathy, resolved. 2. Urinary tract infection with Morganella morganii, sensitive to ciprofloxacin. 3. Hyponatremia, resolved. 4. Hyperglycemia, steroid induced. 5. History of prostate cancer. HISTORY OF PRESENT ILLNESS: Mr. Tj Angela is an 82-year-old male with a medical history significant for prostate cancer in the past requiring radiation treatment and radiation beads along with Lupron treatment, history of pelvic fracture, admitted to the hospital with complaints of increasing weakness, tiredness, and episodes of confusion and noticed by the family members. On admission, the patient was noted to have urinary tract infection. The patient was started on IV antibiotic with ceftriaxone. He was noted to have hyperglycemia. We did order a hemoglobin A1c on this admission, the result of which is still pending at the time of this dictation. Continued to have hyperglycemia, we prescribed insulin regimen for the patient, but the patient declines to receive insulin treatment. The patient was explained about complications of diabetes and still then he believes that his blood sugars are elevated secondary to his diet, and he is trying to change his diet. He does not want to be treated for hyperglycemia at this time. The patient was given glucometer when he is discharged home. He is advised to check his blood sugars at least 2 times a day and report back to his primary care physician. He is also noted to be on dexamethasone, exact reason not clear, could be from his underlying cancer. This will need to be followed with his primary care physician for further followup. He has been on dexamethasone since August, so we could not discontinue the medications at this time. He has an upcoming appointment with Urology also, so the patient is advised to discuss this further with his Urology and also primary care physician. His urine culture was positive for Morganella morganii, which is sensitive to ciprofloxacin, so we prescribed oral ciprofloxacin at the time of discharge. The patient wanted to be discharged home. He is discharged home in stable condition. He is advised to follow with his primary care physician in next 1-2 weeks of time. DISCHARGE MEDICATIONS: Include, 1. Tylenol 650 every 8 hours for pain. 2. Vitamin C 500 mg daily. 3. Casodex one tablet daily. 4. Ciprofloxacin 500 mg twice a day for next 5 days. 5. Cymbalta 60 mg daily. 6. Dexamethasone 1 mg twice a day. 7. Docusate sodium one tablet twice a day. 8. Aricept 10 mg daily. 9. Neurontin 100 mg 3 times a day. 10.Lactobacillus one tablet daily. 11.Milk of magnesia 30 mL daily as needed for constipation. 12.Melatonin 6 mg daily. 13.Omeprazole 20 mg daily. 14.MiraLax 17 g twice a day. 15.Flomax 0.4 mg at bedtime. 16.Buspar 20 mg 3 times a day. 17.Oxycodone 5 mg every 8 hours. PHYSICAL EXAMINATION: Vital Signs: On the day of discharge vitals; temperature of 98.3, pulse of 94, blood pressure of 143/75, respiratory rate of 18, saturating at 94% on room air. General Appearance: The patient is well oriented to time, place, and person. Follows commands spontaneously. Cardiovascular System: S1, S2 heard with normal intensity. No gallops. Respiratory System: Clear to auscultation bilaterally. No wheeze. No crepitations. Abdomen: Soft. Bowel sounds positive. Nontender. No rigidity. Extremities: No edema in bilateral lower extremities. Neurology: No gross focal neurological deficit. CONDITION ON ADMISSION: Poor. CONDITION ON DISCHARGE: Stable. ACTIVITY: As tolerated. DIET: Consistent carbohydrate diet. FOLLOWUP: Follow up with primary care physician in next 1-2 weeks of time and follow up with Urology as scheduled. TIME SPENT: Spent over 35 minutes of time in evaluating and treating this patient and performing discharge planning. [facility] /[id number]
== END 2017-11-12 11:44 | disposition home or self-care (01) | DRG 689 ==
LOC: DL.ED 09:31 → DL.MS 12:26 → OBSVTOIN 13:19
PROVIDERS: ADMIT Internal Medicine; ATTEND Internal Medicine
DX: N39.0 Urinary tract infection, site not specified (principal); G93.40 Encephalopathy, unspecified; E87.1 Hypo-osmolality and hyponatremia; E86.0 Dehydration; R10.30 Lower abdominal pain, unspecified; D63.8 Anemia in other chronic diseases classified elsewhere; B96.89 Other specified bacterial agents as the cause of diseases classified elsewhere; R73.9 Hyperglycemia, unspecified; T38.0X5A Adverse effect of glucocorticoids and synthetic analogues, initial encounter; R07.89 Other chest pain; M25.531 Pain in right wrist; W19.XXXA Unspecified fall, initial encounter; H54.7 Unspecified visual loss; E78.00 Pure hypercholesterolemia, unspecified; K59.09 Other constipation; K21.9 Gastro-esophageal reflux disease without esophagitis; N40.0 Benign prostatic hyperplasia without lower urinary tract symptoms; G89.29 Other chronic pain; M54.9 Dorsalgia, unspecified; F32.9 Major depressive disorder, single episode, unspecified; Z85.46 Personal history of malignant neoplasm of prostate; Z96.641 Presence of right artificial hip joint; Z88.6 Allergy status to analgesic agent; Z88.1 Allergy status to other antibiotic agents; Z87.440 Personal history of urinary (tract) infections; Z88.8 Allergy status to other drugs, medicaments and biological substances; Z79.891 Long term (current) use of opiate analgesic; Z79.899 Other long term (current) drug therapy; Z87.891 Personal history of nicotine dependence; Z92.3 Personal history of irradiation; Z91.14 Patient's other noncompliance with medication regimen; Z28.21 Immunization not carried out because of patient refusal
CPT/HCPCS: 36415; 71046; 73110; 80053; 81001; 82962; 83036; 83605; 83735; 84100; 85025; 85651; 86140; 87040 ×2; 87086; 87088; 87186; 99284; A9270; 80048; 85027; 94010; 97162-GP; 97166-GO; J0696; J1650; J1815-GY; J7030; J8540

== ENCOUNTER 2018-07-21 21:01 | Emergency (ER) | payer MEDICARE, BC ==
[2018-07-21 21:13] VITALS: BP 144/85
--- NOTE | 2018-07-21 21:26 | EDM.PDOC ---
ED HPI GENERAL MEDICAL PROBLEM - General Chief Complaint: Respiratory Problem Stated Complaint: WHEEZING Time Seen by Provider: 07/21/18 21:15 Source of Information: Reports: Patient History Limitations: Reports: No Limitations - History of Present Illness INITIAL COMMENTS - FREE TEXT/NARRATIVE: This 83 yo male patient reports to the ED with diffuse wheezing (reported by [facility] nurse) and shortness of breath (reported by patient). The patient reports he has had wheezing for the past week, but believes it is getting worse. The patient reports he has been getting IV antibiotics and IV antifungals for the past 7 weeks. The antibiotics were stopped 2 days ago. The patient reports his symptoms seem to get worse in the evening. Duration: Week(s):, Constant, Getting Worse Location: Reports: Chest Quality: Reports: Other Improves with: Reports: None Worsens with: Reports: None Context: Reports: Other Associated Symptoms: Reports: cough w sputum - Related Data Allergies Allergy/AdvReac Type Severity Reaction Status Date / Time lorazepam [From Ativan] Allergy Confusion Verified 06/20/18 09:06 morphine Allergy Confusion Verified 06/20/18 09:06 nitrofurantoin Allergy Other Verified 06/20/18 09:06 [From Macrobid] oxybutynin Allergy Cannot Verified 06/20/18 09:06 Remember phenazopyridine Allergy Other Verified 06/20/18 09:06 [From Pyridium] Home Meds: Home Meds Tamsulosin [Flomax] 0.4 mg PO BEDTIME 10/03/13 [History] Acetaminophen [Tylenol] 650 mg PO Q6H 11/09/17 [History] Ascorbate Calcium [Vitamin C] 500 mg PO BID 11/09/17 [History] Dexamethasone 0.5 mg PO DAILY 11/09/17 [History] Donepezil HCl [Aricept] 10 mg PO DAILY 11/09/17 [History] Gabapentin [Neurontin] 100 mg PO TID 11/09/17 [History] L.acidoph,Paracasei, B.lactis [Probiotic] 1 each PO DAILY 11/09/17 [History] busPIRone [Buspar] 20 mg PO TID 11/09/17 [History] Alendronate Sodium [Fosamax] 70 mg PO WEEKLY 05/23/18 [History] Bicalutamide [Casodex] 50 mg PO DAILY 05/23/18 [History] Celecoxib [CeleBREX] 100 mg PO DAILY 05/23/18 [History] Cholecalciferol (Vitamin D3) [Vitamin D3] 1,000 unit PO BID 05/23/18 [History] Cranberry 500 mg PO BID 05/23/18 [History] DULoxetine [Cymbalta] 90 mg PO DAILY 05/23/18 [History] Dextran 70/Hypromellose [Artificial Tears] 1 drop EYEBOTH TID 05/23/18 [History] Insulin Aspart [NovoLOG] 5 unit SQ WITHLUNCH 05/23/18 [History] Insulin Aspart [NovoLOG] 8 unit SQ ACDINNER 05/23/18 [History] Insulin Glarg,Human.Rec.Analog [Lantus] 28 units SQ BEDTIME 05/23/18 [History] Lactulose 15 ml PO BID 05/23/18 [History] Magnesium Hydroxide [Milk of Magnesia] 15 ml PO DAILY PRN 05/23/18 [History] Melatonin 6 mg PO BEDTIME 05/23/18 [History] Ondansetron [Zofran ODT] 8 mg PO Q8HR PRN 05/23/18 [History] Pantoprazole Sodium [Protonix] 40 mg PO DAILY 05/23/18 [History] Polyethylene Glycol 3350 [MiraLAX] 17 gm PO BID 05/23/18 [History] Sennosides/Docusate Sodium [Senna Laxative Tablet] 2 each PO BID 05/23/18 [ History] Trolamine Salicylate [Aspercreme] 1 applic TP ASDIRECTED 05/23/18 [History] oxyCODONE HCl [Oxycodone HCl] 10 mg PO Q6HR 05/23/18 [History] risperiDONE [Risperdal] 0.25 mg PO BEDTIME 05/23/18 [History] Cranberry Conc/Ascorbic Acid [Cystex Cranberry] 1 tab PO BID 06/16/18 [History] Past Medical History HEENT History: Reports: Cataract, Impaired Vision, Other (See Below) Other HEENT History: wears glasses Cardiovascular History: Reports: High Cholesterol Respiratory History: Reports: None Gastrointestinal History: Reports: Chronic Constipation, GERD Genitourinary History: Reports: BPH, Prostate Disorder, Retention, Urinary, UTI , Recurrent, Other (See Below) Other Genitourinary History: dilalation of urethra Musculoskeletal History: Reports: Back Pain, Chronic, Fracture Other Musculoskeletal History: left femur surgery Neurological History: Reports: None Psychiatric History: Reports: Alzheimers Disease, Anxiety, Dementia, Depression Endocrine/Metabolic History: Reports: Diabetes, Type II Hematologic History: Reports: None Immunologic History: Reports: None Oncologic (Cancer) History: Reports: Prostate Dermatologic History: Reports: None - Infectious Disease History Infectious Disease History: Reports: Chicken Pox, Measles, Mumps - Past Surgical History Head Surgeries/Procedures: Reports: None HEENT Surgical History: Reports: None, Cataract Surgery Cardiovascular Surgical History: Reports: None GI Surgical History: Reports: Colonoscopy Other Male Surgeries/Procedures: prostate problems Musculoskeletal Surgical History: Reports: Other (See Below) Other Musculoskeletal Surgeries/Procedures:: back surg, R) hip joint replacement Social & Family History - Family History Family Medical History: Noncontributory Other Hematologic Family History: mother of cerebral aneurysm - Caffeine Use Caffeine Use: Reports: Coffee - Living Situation & Occupation Living situation: Reports: Single, Assisted Living Occupation: Retired ED ROS GENERAL - Review of Systems Review Of Systems: ROS reveals no pertinent complaints other than HPI. ED EXAM, GENERAL - Physical Exam Exam: See Below Exam Limited By: No Limitations General Appearance: Alert, WD/WN, Mild Distress Eye Exam: Bilateral Eye: EOMI, Normal Inspection, PERRL Ears: Normal External Exam, Normal Canal, Hearing Grossly Normal, Normal TMs Nose: Normal Inspection, Normal Mucosa, No Blood Throat/Mouth: Normal Inspection, Normal Lips, Normal Teeth, Normal Gums, Normal Oropharynx, Normal Voice, No Airway Compromise Head: Atraumatic, Normocephalic Neck: Normal Inspection, Supple, Non-Tender, Full Range of Motion Respiratory/Chest: No Respiratory Distress, No Accessory Muscle Use, Chest Non- Tender, Wheezing (with expiration). No: Crackles, Rales, Rhonchi Cardiovascular: Normal Peripheral Pulses, Regular Rate, Rhythm, No Edema, No Gallop, No JVD, No Murmur, No Rub GI/Abdominal: Normal Bowel Sounds, Soft, Non-Tender, No Organomegaly, No Distention, No Abnormal Bruit, No Mass (Male) Exam: Deferred Rectal (Males) Exam: Deferred Back Exam: Normal Inspection, Full Range of Motion, NT Extremities: Normal Inspection, Normal Range of Motion, Non-Tender, Normal Capillary Refill, No Pedal Edema Neurological: Alert, Oriented, CN II-XII Intact, Normal Cognition, Normal Gait, Normal Reflexes, No Motor/Sensory Deficits Psychiatric: Normal Affect, Normal Mood Skin Exam: Warm, Dry, Intact, Normal Color, No Rash Lymphatic: No Adenopathy Course - Vital Signs Last Recorded V/S: Last Vital Signs Temp 36.7 C 07/21/18 21:12 Pulse 75 07/21/18 21:12 Resp 20 07/21/18 21:12 BP 144/85 H 07/21/18 21:12 Pulse Ox 97 07/21/18 21:12 - Orders/Labs/Meds Labs: Laboratory Tests 07/21/18 07/21/18 Range/Units 21:21 21:21 WBC 7.0 (5.0-10.0) 10^3/uL RBC 3.87 L (4.6-6.2) 10^6/uL Hgb 9.6 L (14.0-18.0) g/dL Hct 31.1 L (40.0-54.0) % MCV 80.4 (80-100) fL MCH 24.8 L (27.0-34.0) pg MCHC 30.9 L (33.0-35.0) g/dL Plt Count 250 (150-450) 10^3/uL Neut % (Auto) 54.3 (42.2-75.2) % Lymph % (Auto) 30.0 (20.5-50.1) % Major % (Auto) 9.5 H (2-8) % Eos % (Auto) 5.8 H (1.0-3.0) % Baso % (Auto) 0.4 (0.0-1.0) % Sodium 139 (135-145) mmol/L Potassium 4.0 (3.6-5.0) mmol/L Chloride 101 (101-111) mmol/L Carbon Dioxide 27.0 (21.0-31.0) mmol/L Anion Gap 15.0 BUN 22 H (7-18) mg/dL Creatinine 0.9 (0.6-1.3) mg/dL Est Cr Clr Drug Dosing 55.05 mL/min Estimated GFR (MDRD) > 60 BUN/Creatinine Ratio 24.44 Glucose 131 H (74-105) mg/dL Calcium 8.9 (8.4-10.2) mg/dl Total Bilirubin 0.3 (0.2-1.0) mg/dL AST 22 (10-42) IU/L ALT 14 (10-60) IU/L Alkaline Phosphatase 68 (42-121) IU/L Total Protein 6.8 (6.7-8.2) g/dl Albumin 3.3 (3.2-5.5) g/dl Globulin 3.5 Albumin/Globulin Ratio 0.94 Departure - Departure Time of Disposition: 22:20 Disposition: Home, Self-Care 01 Condition: Fair Clinical Impression: Viral upper respiratory infection - Discharge Information *PRESCRIPTION DRUG MONITORING PROGRAM REVIEWED*: Not Applicable *COPY OF PRESCRIPTION DRUG MONITORING REPORT IN PATIENT ASHLEY: Not Applicable Instructions: Viral Respiratory Infection, Cial-Wp-Lmai, Cough, Adult, Easy-to- Read Forms: ED Department Discharge Care Plan Goals: The patient and his daughter were advised of the examination, lab and x-ray results during the visit. The patient was encouraged to follow-up with his primary care facility for continued evaluation and further management. If the patient has any additional symptoms or concerns, the patient should either visit his primary care facility or return to the emergency department.
[2018-07-21 21:58] LABS: CHLORIDE,CL 101 mmol/L (101-111); SODIUM,NA 139 mmol/L (135-145)
== END 2018-07-21 22:50 | disposition home or self-care (01) ==
LOC: DL.ED 21:01
DX: J06.9 Acute upper respiratory infection, unspecified (principal); E11.9 Type 2 diabetes mellitus without complications; Z88.5 Allergy status to narcotic agent; Z88.8 Allergy status to other drugs, medicaments and biological substances; Z79.899 Other long term (current) drug therapy; Z79.4 Long term (current) use of insulin
CPT/HCPCS: 36415; 71046; 80053; 85025; 99285

== ENCOUNTER 2018-08-23 10:56 | Inpatient (IN) | payer MEDICARE, BC ==
[2018-08-23] MEDS ORDERED: Acetaminophen 325 MG Tab PO PRN (13:47)
[2018-08-23] MEDS ORDERED: Magnesium Hydroxide 400 MG/5 ML Susp 30 ML Cup PO PRN (13:47)
--- NOTE | 2018-08-23 13:59 | PCM.HP ---
H&P History of Present Illness - General Date of Service: 08/23/18 Admit Problem/Dx: Admission Diagnosis/Problem Admission Diagnosis/Problem Abscess Source of Information: Patient History Limitations: Reports: No Limitations - History of Present Illness Initial Comments - Free Text/Narative: Tj Angela is a 83 y/o M with PMH of chronic pain, prostate radiation, urethral stricture s/p dilatation, frequent UTIs, chronic incontinence of urine , dementia. He recently finished prolonged course of abx with ceftriaxone and micafungin for pelvic abscess and pubic symphysis osteomyelitis, His blood cx had grown strep viridans and abscess cx while on abx grew epifanio glabrata For 2 weeks prior to this admssion he started having right lower abdominal pain and low grade fever. CT scan of the abdomen and pelvis on 08/16/18 showed evidence of abscess formation in the pectineus muscle and also osteomyelitis of the pelvis. [facility] He had Image guided aspiration of a RIGHT upper thigh fluid collection on 08/19, cxs positive for strep species. He was managed for recurrent persistent pelvic abscess and chronicosteomyelitis of the pubic symphysis. ID was consulted and recommended zosyn andMicafungin to complete 6 weeks course. Patient was sent to [facility] to complete antibiotics and also to continue PT/OT. At the time of this evaluation patient denies and the symptom. No chest pain, shortness of breath, fever, chills, nausea, vomiting. Improves with: Reports: None Worsens with: Reports: None Associated Symptoms: Reports: No Other Symptoms Right Ankle Pain Score (Numeric/FACES): 3 - Related Data Allergies/Adverse Reactions: Allergies Allergy/AdvReac Type Severity Reaction Status Date / Time lorazepam [From Ativan] Allergy Confusion Verified 08/23/18 11:45 morphine Allergy Confusion Verified 08/23/18 11:45 nitrofurantoin Allergy Other Verified 08/23/18 11:45 [From Macrobid] oxybutynin Allergy Cannot Verified 08/23/18 11:45 Remember phenazopyridine Allergy Other Verified 08/23/18 11:45 [From Pyridium] Home Medications: Home Meds Tamsulosin [Flomax] 0.4 mg PO BEDTIME 10/03/13 [History] Acetaminophen [Tylenol] 650 mg PO Q4H PRN 11/09/17 [History] Ascorbate Calcium [Vitamin C] 500 mg PO BID 11/09/17 [History] Dexamethasone 0.5 mg PO DAILY 11/09/17 [History] Donepezil HCl [Aricept] 10 mg PO DAILY 11/09/17 [History] Gabapentin [Neurontin] 100 mg PO TID 11/09/17 [History] L.acidoph,Paracasei, B.lactis [Probiotic] 1 each PO DAILY 11/09/17 [History] busPIRone [Buspar] 20 mg PO TID 11/09/17 [History] Alendronate Sodium [Fosamax] 70 mg PO WEEKLY 05/23/18 [History] Bicalutamide [Casodex] 50 mg PO DAILY 05/23/18 [History] Celecoxib [CeleBREX] 100 mg PO DAILY 05/23/18 [History] Cholecalciferol (Vitamin D3) [Vitamin D3] 1,000 unit PO BID 05/23/18 [History] Cranberry 500 mg PO BID 05/23/18 [History] DULoxetine [Cymbalta] 90 mg PO DAILY 05/23/18 [History] Insulin Aspart [NovoLOG] 5 unit SQ WITHLUNCH 05/23/18 [History] Insulin Aspart [NovoLOG] 8 unit SQ ACDINNER 05/23/18 [History] Insulin Glarg,Human.Rec.Analog [Lantus] 28 units SQ BEDTIME 05/23/18 [History] Magnesium Hydroxide [Milk of Magnesia] 15 ml PO DAILY PRN 05/23/18 [History] Melatonin 6 mg PO BEDTIME 05/23/18 [History] Ondansetron [Zofran ODT] 8 mg PO Q8HR PRN 05/23/18 [History] Pantoprazole Sodium [Protonix] 40 mg PO DAILY 05/23/18 [History] Polyethylene Glycol 3350 [MiraLAX] 17 gm PO BID 05/23/18 [History] Sennosides/Docusate Sodium [Senna Laxative Tablet] 2 each PO BID 05/23/18 [ History] oxyCODONE HCl [Oxycodone HCl] 10 mg PO Q4HR 05/23/18 [History] risperiDONE [Risperdal] 0.25 mg PO BEDTIME 05/23/18 [History] Cranberry Conc/Ascorbic Acid [Cystex Cranberry] 2 tab PO BID 06/16/18 [History] Carboxymethylcellulose Sodium [Refresh Tears] 1 drop EYEBOTH TID 08/23/18 [ History] Methenamine Hippurate [Hiprex] 1 tab PO BID 08/23/18 [History] Metoprolol Tartrate 25 mg PO BID 08/23/18 [History] Micafungin [Mycamine] 100 mg IV DAILY 08/23/18 [History] Non-Formulary Medication [NF Drug] 162 - 162.5 mg PO TID 08/23/18 [History] PEG 400/Hypromellose/Glycerin [Artificial Tears Drops] 1 drop OP TID 08/23/18 [ History] Piperacillin/Tazobactam [Zosyn] 3.375 gm IV Q8H 08/23/18 [History] amLODIPine [Norvasc] 5 mg PO DAILY 08/23/18 [History] hydrALAZINE [Apresoline] 50 mg PO Q12HR 08/23/18 [History] Past Medical History HEENT History: Reports: Cataract, Impaired Vision, Other (See Below) Other HEENT History: wears glasses Cardiovascular History: Reports: High Cholesterol Respiratory History: Reports: None Gastrointestinal History: Reports: Chronic Constipation, GERD, Other (See Below) Other Gastrointestinal History: pelvic absess Genitourinary History: Reports: BPH, Prostate Disorder, Retention, Urinary, UTI , Recurrent, Other (See Below) Other Genitourinary History: dilalation of urethra Musculoskeletal History: Reports: Back Pain, Chronic, Fracture Other Musculoskeletal History: left femur surgery Neurological History: Reports: None Psychiatric History: Reports: Alzheimers Disease, Anxiety, Dementia, Depression Endocrine/Metabolic History: Reports: Diabetes, Type II Hematologic History: Reports: None Immunologic History: Reports: None Oncologic (Cancer) History: Reports: Prostate Dermatologic History: Reports: None - Infectious Disease History Infectious Disease History: Reports: Chicken Pox, Measles, Mumps - Past Surgical History Head Surgeries/Procedures: Reports: None HEENT Surgical History: Reports: None, Cataract Surgery Cardiovascular Surgical History: Reports: None GI Surgical History: Reports: Colonoscopy Other Male Surgeries/Procedures: prostate problems Musculoskeletal Surgical History: Reports: Other (See Below) Other Musculoskeletal Surgeries/Procedures:: back surg, R) hip joint replacement Social & Family History - Family History Family Medical History: Noncontributory Other Hematologic Family History: mother of cerebral aneurysm - Tobacco Use Smoking Status *Q: Former Smoker Years of Tobacco use: 30 Packs/Tins Daily: 0.5 Used Tobacco, but Quit: Yes Month/Year Tobacco Last Used: 1979 - Caffeine Use Caffeine Use: Reports: Coffee - Recreational Drug Use Recreational Drug Use: No - Living Situation & Occupation Living situation: Reports: Single, Assisted Living Occupation: Retired H&P Review of Systems - Review of Systems: Review Of Systems: See Below General: Reports: No Symptoms HEENT: Reports: No Symptoms Pulmonary: Reports: No Symptoms Cardiovascular: Reports: No Symptoms Gastrointestinal: Reports: No Symptoms Genitourinary: Reports: No Symptoms Musculoskeletal: Reports: No Symptoms Skin: Reports: No Symptoms Psychiatric: Reports: No Symptoms Neurological: Reports: No Symptoms Hematologic/Lymphatic: Reports: No Symptoms Immunologic: Reports: No Symptoms Exam - Exam Exam: See Below - Exam Quality Assessment: DVT Prophylaxis General: Alert, Oriented, 4 HEENT: PERRLA, Hearing Intact, Mucosa Moist & [place], Nares Patent, Normal Nasal Septum, Posterior Pharynx Clear, Conjunctiva Clear, EOMI, EACs Clear, TMs Clear Neck: Supple, Trachea Midline, 2 Lungs: Clear to Auscultation, Normal Respiratory Effort Cardiovascular: Regular Rate, Regular Rhythm GI/Abdominal Exam: Normal Bowel Sounds, Soft, Non-Tender, No Organomegaly, No Distention, No Abnormal Bruit, No Mass, Pelvis Stable (Male) Exam: No Hernia, Normal Inspection, Normal Prostate, Circumcised Rectal (Males) Exam: Normal Exam, Normal Rectal Tone, Prostate Normal Back Exam: Normal Inspection, Full Range of Motion, NT Extremities: Normal Inspection, Normal Range of Motion, Non-Tender, No Pedal Edema, Normal Capillary Refill Skin: Warm, Dry, Intact Neurological: Cranial Nerves Intact, Reflexes Equal Bilateral Neuro Extensive - Mental Status: Alert, Oriented x3, Normal Mood/Affect, Normal Cognition Neuro Extensive - Motor, Sensory, Reflexes: CN II-XII Intact, Normal Gait, Normal Reflexes Psychiatric: Alert, Normal Affect, Normal Mood - Problem List (1) Osteomyelitis SNOMED Code(s): 84756777 ICD Code: M86.9 - OSTEOMYELITIS, UNSPECIFIED Status: Acute Current Visit : Yes (2) Abscess SNOMED Code(s): 318651667 ICD Code: L02.91 - CUTANEOUS ABSCESS, UNSPECIFIED Status: Acute Current Visit: Yes (3) Weakness generalized SNOMED Code(s): 23852485 ICD Code: R53.1 - WEAKNESS Status: Acute Current Visit: Yes (4) Chronic pain SNOMED Code(s): 02633053 ICD Code: G89.29 - OTHER CHRONIC PAIN Status: Acute Current Visit: No Qualifiers: Chronic pain type: chronic pain syndrome Qualified Code(s): G89.4 - Chronic pain syndrome (5) Diabetes SNOMED Code(s): 16319752 ICD Code: E11.9 - TYPE 2 DIABETES MELLITUS WITHOUT COMPLICATIONS Status: Acute Current Visit: No (6) Left groin pain SNOMED Code(s): 297744044 ICD Code: R10.32 - LEFT LOWER QUADRANT PAIN Status: Acute Current Visit: No Problem List Initiated/Reviewed/Updated: Yes Orders Last 24hrs: Active Orders 24 hr Category Date Time Status Patient Status [ADT] Routine ADT 08/23/18 13:41 Ordered Ambulate [RC] ASDIRECTED Care 08/23/18 13:41 Ordered Antiembolic Devices [RC] .Routine Care 08/23/18 13:45 Ordered Notify Provider Vital Signs [RC] ASDIRECTED Care 08/23/18 13:44 Ordered VTE/DVT Education [RC] PER UNIT ROUTINE Care 08/23/18 13:45 Ordered Vital Signs [RC] Q4H Care 08/23/18 13:41 Ordered Regular Diet [DIET] Diet 08/23/18 Dinner Ordered BASIC METABOLIC PANEL,BMP [CHEM] Routine Lab 08/23/18 13:41 Ordered CBC WITH AUTO DIFF [HEME] Routine Lab 08/23/18 13:41 Ordered Acetaminophen [Tylenol] Med 08/23/18 13:47 Ordered 650 mg PO Q4H PRN Alendronate Sodium [Fosamax] Med 08/23/18 14:00 Ordered 70 mg PO WEEKLY Ascorbate Calcium [Vitamin C] Med 08/23/18 21:00 Ordered 500 mg PO BID Bicalutamide [Casodex] Med 08/24/18 09:00 Ordered 50 mg PO DAILY Carboxymethylcellulose Sodium [Refresh Tears] Med 08/23/18 14:00 Ordered 1 drop EYEBOTH TID Celecoxib [CeleBREX] Med 08/24/18 09:00 Ordered 100 mg PO DAILY Cholecalciferol (Vitamin D3) [Vitamin D3] Med 08/23/18 21:00 Ordered 1,000 unit PO BID Cranberry Conc/Ascorbic Acid [Cystex Cranberry] Med 08/23/18 21:00 Ordered 2 tab PO BID Cranberry [Cranberry] Med 08/23/18 21:00 Ordered 500 mg PO BID DULoxetine [Cymbalta] Med 08/24/18 09:00 Ordered 90 mg PO DAILY Dexamethasone [Dexamethasone] Med 08/24/18 09:00 Ordered 0.5 mg PO DAILY Docusate Sodium/Sennosides [Senna Plus] Med 08/23/18 21:00 Ordered 2 each PO BID Donepezil [Aricept] Med 08/24/18 09:00 Ordered 10 mg PO DAILY Gabapentin [Neurontin] Med 08/23/18 14:00 Ordered 100 mg PO TID Heparin Sodium Med 08/23/18 13:45 Ordered 5,000 units SUBCUT Q12H Insulin Aspart [NovoLOG] Med 08/24/18 12:00 Ordered 5 unit SQ WITHLUNCH Insulin Aspart [NovoLOG] Med 08/23/18 17:00 Ordered 8 unit SQ ACDINNER Insulin Glarg,Human.Rec.Analog [LantUS] Med 08/23/18 21:00 Ordered 28 unit SUBCUT BEDTIME L.acidoph,Paracasei, B.lactis [Probiotic] Med 08/24/18 09:00 Ordered 1 each PO DAILY Magnesium Hydroxide [Milk of Magnesia] Med 08/23/18 13:47 Ordered 15 ml PO DAILY PRN Melatonin Med 08/23/18 21:00 Ordered 6 mg PO BEDTIME Methenamine Hippurate [Hiprex] Med 08/23/18 21:00 Ordered 1 tab PO BID Metoprolol Tartrate [Lopressor] Med 08/23/18 21:00 Ordered 25 mg PO BID Micafungin [Mycamine] Med 08/24/18 09:00 Ordered 100 mg IV DAILY Ondansetron [Zofran ODT] Med 08/23/18 13:47 Ordered 8 mg PO Q8HR PRN PEG 400/Hypromellose/Glycerin [Artificial Tears Drops] Med 08/23/18 14:00 Ordered 1 drop OP TID Pantoprazole [ProTONIX] Med 08/24/18 09:00 Ordered 40 mg PO DAILY Piperacillin/Tazobactam [Zosyn] Med 08/23/18 14:00 Ordered 3.375 gm IV Q8H Polyethylene Glycol 3350 [MiraLAX] Med 08/23/18 21:00 Ordered 17 gm PO BID Tamsulosin [Flomax] Med 08/23/18 21:00 Ordered 0.4 mg PO BEDTIME amLODIPine [Norvasc] Med 08/24/18 09:00 Ordered 5 mg PO DAILY busPIRone [Buspar] Med 08/23/18 14:00 Ordered 20 mg PO TID hydrALAZINE [Apresoline] Med 08/23/18 21:00 Ordered 50 mg PO Q12HR oxyCODONE HCl [Oxycodone HCl] Med 08/23/18 14:00 Ordered 10 mg PO Q4HR risperiDONE [Risperdal] Med 08/23/18 21:00 Ordered 0.25 mg PO BEDTIME Antiembolic Hose [OM.PC] Per Unit Routine Oth 08/23/18 13:46 Ordered DVT/VTE Prophylaxis Reflex [OM.PC] Routine Oth 08/23/18 13:41 Ordered Assessment/Plan Comment:: #Recurrent persistent pelvic abscess andchronicosteomyelitis of the pubic symphysis Continue micafungin and Zosyn - To complete 6 weeks course #Acute kidney injury. Etiology unclear,urine eos neg -likely secondary to contrast associated nephropathy as well as allergic interstitial inflammation secondary to antibiotics and infection all causing possible ischemic injury versus ATN Nephrology evaluated at [facility] #Dementia with agitation Continue Buspar, Cymbalta, and Risperdal #Prostate cancer/chronic urinary retention: Patient with history of prostate cancer status post radiation therapy. Has retention with intermittent self- catheterization at home. Lombardo catheter placement - Routine lombardo care. #Microcytic anemia/anemia of chronic inflammation stable Monitor CBC #Hypertension - BP at goal -continue home medications Monitor blood pressures closely #Diabetes: On insulin at home. Continue NovoLog and Lantus Sliding scale insulin with hypoglycemia protocol Accu-Cheks at mealtime and at bedtime. # Full code
[2018-08-23 14:49] LABS: ANION GAP 15.5; CHLORIDE,CL 97 mmol/L (101-111); SODIUM,NA 140 mmol/L (135-145)
[2018-08-23] MEDS ORDERED: Piperacillin/Tazobactam 3.375 GM in Sodium Chloride 0.9% 100 ML IV SCH (15:00)
[2018-08-23] MEDS: BUSPIRONE 10 MG PO SCH ×2 (16:47→21:20)
[2018-08-23] MEDS: Piperacillin/Tazobactam 3.375 GM in Sodium Chloride 0.9% 100 ML IV SCH ×2 (16:50→22:10)
[2018-08-23] MEDS: Polyvinyl Alcohol 1.4% Ophth Soln 15 ML Bottle EYEBOTH SCH ×3 (17:09→21:39)
[2018-08-23] MEDS: Gabapentin 100 MG Cap PO SCH ×2 (17:09→21:26)
[2018-08-23] MEDS: oxyCODONE 5 MG Tab PO SCH ×3 (17:10→21:47)
[2018-08-23] MEDS: Carboxymethylcellulose Sodium 1% Ophth Gel 0.4 ML UD EYEBOTH SCH ×3 (17:11→21:39)
[2018-08-23] MEDS: Insulin Lispro 100 Units/ML 3 ML Vial SUBCUT SCH (17:22)
[2018-08-23] MEDS: Micafungin 100 MG in Sodium Chloride 0.9% 100 ML IV SCH (21:11)
[2018-08-23] MEDS: Cholecalciferol (Vitamin D3) 400 Unit Tab PO SCH (21:23)
[2018-08-23] MEDS: Melatonin 3 MG Tab PO SCH (21:24)
[2018-08-23] MEDS: risperiDONE 0.5 MG Tab PO SCH (21:25)
[2018-08-23] MEDS: Tamsulosin 0.4 MG Cap.ER PO SCH (21:25)
[2018-08-23] MEDS: hydrALAZINE 25 MG Tab PO SCH (21:25)
[2018-08-23] MEDS: Ascorbic Acid 500 MG Tab PO SCH (21:25)
[2018-08-23] MEDS: Metoprolol Tartrate 25 MG Tab PO SCH (21:26)
[2018-08-23] MEDS: Polyethylene Glycol 3350 Powder 17 GM Packet PO SCH (21:26)
[2018-08-23] MEDS: Heparin Sodium 5,000 Units/ML Vial SUBCUT SCH (21:27)
[2018-08-23] MEDS: Insulin Glarg,Human.Rec.Analog 100 UNIT/ML ML SUBCUT SCH (21:29)
[2018-08-23] MEDS: CRANBERRY PO SCH (21:32)
[2018-08-23] MEDS: ASCORBIC ACID PO SCH (21:32)
[2018-08-23] MEDS: Sodium Chloride 0.9% 10 ML Syringe FLUSH PRN (22:11)
[2018-08-24] MEDS: oxyCODONE 5 MG Tab PO SCH ×6 (01:38→21:57)
[2018-08-24] MEDS: Sodium Chloride 0.9% 10 ML Syringe FLUSH PRN ×5 (05:53→22:36)
[2018-08-24] MEDS: Piperacillin/Tazobactam 3.375 GM in Sodium Chloride 0.9% 100 ML IV SCH ×3 (05:57→21:59)
[2018-08-24] MEDS: Polyethylene Glycol 3350 Powder 17 GM Packet PO SCH ×2 (09:05→20:54)
[2018-08-24] MEDS: Gabapentin 100 MG Cap PO SCH ×3 (09:06→20:53)
[2018-08-24] MEDS: DULoxetine 30 MG Cap PO SCH (09:06)
[2018-08-24] MEDS: Cholecalciferol (Vitamin D3) 400 Unit Tab PO SCH ×2 (09:07→20:54)
[2018-08-24] MEDS: hydrALAZINE 25 MG Tab PO SCH ×2 (09:09→20:53)
[2018-08-24] MEDS: Metoprolol Tartrate 25 MG Tab PO SCH ×2 (09:10→20:54)
[2018-08-24] MEDS: Celecoxib 100 MG Cap PO SCH (09:11)
[2018-08-24] MEDS: amLODIPine 5 MG Tab PO SCH (09:11)
[2018-08-24] MEDS: Ascorbic Acid 500 MG Tab PO SCH ×2 (09:12→20:53)
[2018-08-24] MEDS: Donepezil 10 MG Tab PO SCH (09:12)
[2018-08-24] MEDS: Pantoprazole 40 MG Tab.CR PO SCH (09:13)
[2018-08-24] MEDS: Carboxymethylcellulose Sodium 1% Ophth Gel 0.4 ML UD EYEBOTH SCH ×3 (09:13→21:01)
[2018-08-24] MEDS: Polyvinyl Alcohol 1.4% Ophth Soln 15 ML Bottle EYEBOTH SCH ×3 (09:13→21:01)
[2018-08-24] MEDS: Heparin Sodium 5,000 Units/ML Vial SUBCUT SCH ×2 (09:14→21:01)
[2018-08-24] MEDS: BICALUTAMIDE 50 MG PO SCH (09:15)
[2018-08-24] MEDS: BUSPIRONE 10 MG PO SCH ×3 (09:16→20:50)
[2018-08-24] MEDS: ASCORBIC ACID PO SCH ×3 (09:17→20:49)
[2018-08-24] MEDS: CRANBERRY PO SCH ×3 (09:17→20:49)
[2018-08-24] MEDS: CULTURELLE PROBIOTIC PO SCH (09:17)
[2018-08-24] MEDS: Insulin Lispro 100 Units/ML 3 ML Vial SUBCUT SCH ×2 (12:42→17:29)
[2018-08-24] MEDS: Micafungin 100 MG in Sodium Chloride 0.9% 100 ML IV SCH (20:43)
[2018-08-24] MEDS: Melatonin 3 MG Tab PO SCH (20:54)
[2018-08-24] MEDS: Tamsulosin 0.4 MG Cap.ER PO SCH (20:54)
[2018-08-24] MEDS: risperiDONE 0.5 MG Tab PO SCH (20:55)
[2018-08-24] MEDS: Insulin Glarg,Human.Rec.Analog 100 UNIT/ML ML SUBCUT SCH (21:09)
[2018-08-25] MEDS: oxyCODONE 5 MG Tab PO SCH ×6 (01:55→22:57)
[2018-08-25] MEDS: Sodium Chloride 0.9% 10 ML Syringe FLUSH PRN ×5 (06:01→22:51)
[2018-08-25] MEDS: Piperacillin/Tazobactam 3.375 GM in Sodium Chloride 0.9% 100 ML IV SCH ×3 (06:02→22:51)
[2018-08-25] MEDS: Heparin Sodium 5,000 Units/ML Vial SUBCUT SCH ×2 (08:38→23:03)
[2018-08-25] MEDS: Cholecalciferol (Vitamin D3) 400 Unit Tab PO SCH ×2 (08:40→22:56)
[2018-08-25] MEDS: Polyethylene Glycol 3350 Powder 17 GM Packet PO SCH ×2 (08:42→22:57)
[2018-08-25] MEDS: amLODIPine 5 MG Tab PO SCH (08:43)
[2018-08-25] MEDS: Donepezil 10 MG Tab PO SCH (08:43)
[2018-08-25] MEDS: Metoprolol Tartrate 25 MG Tab PO SCH ×2 (08:44→22:59)
[2018-08-25] MEDS: DULoxetine 30 MG Cap PO SCH (08:44)
[2018-08-25] MEDS: Ascorbic Acid 500 MG Tab PO SCH ×2 (08:45→22:57)
[2018-08-25] MEDS: Celecoxib 100 MG Cap PO SCH (08:45)
[2018-08-25] MEDS: hydrALAZINE 25 MG Tab PO SCH ×2 (08:46→22:57)
[2018-08-25] MEDS: Pantoprazole 40 MG Tab.CR PO SCH (08:46)
[2018-08-25] MEDS: BUSPIRONE 10 MG PO SCH ×3 (08:47→22:55)
[2018-08-25] MEDS: Gabapentin 100 MG Cap PO SCH ×3 (08:47→22:57)
[2018-08-25] MEDS: Carboxymethylcellulose Sodium 1% Ophth Gel 0.4 ML UD EYEBOTH SCH ×3 (08:47→23:01)
[2018-08-25] MEDS: Polyvinyl Alcohol 1.4% Ophth Soln 15 ML Bottle EYEBOTH SCH ×3 (08:47→23:01)
[2018-08-25] MEDS: ASCORBIC ACID PO SCH ×3 (08:48→22:55)
[2018-08-25] MEDS: CRANBERRY PO SCH ×3 (08:48→22:55)
[2018-08-25] MEDS: CULTURELLE PROBIOTIC PO SCH (08:49)
[2018-08-25] MEDS: BICALUTAMIDE 50 MG PO SCH (08:50)
[2018-08-25] MEDS: Insulin Lispro 100 Units/ML 3 ML Vial SUBCUT SCH ×2 (12:37→17:13)
[2018-08-25] MEDS ORDERED: Non-Formulary Medication 1 Each PO SCH (14:00)
[2018-08-25] MEDS: Micafungin 100 MG in Sodium Chloride 0.9% 100 ML IV SCH (21:11)
[2018-08-25] MEDS: guaiFENesin 600 MG Tab.ER PO SCH (22:57)
[2018-08-25] MEDS: Melatonin 3 MG Tab PO SCH (22:58)
[2018-08-25] MEDS: risperiDONE 0.5 MG Tab PO SCH (22:59)
[2018-08-25] MEDS: Tamsulosin 0.4 MG Cap.ER PO SCH (22:59)
[2018-08-25] MEDS: Insulin Glarg,Human.Rec.Analog 100 UNIT/ML ML SUBCUT SCH (23:01)
[2018-08-26] MEDS: oxyCODONE 5 MG Tab PO SCH ×7 (02:01→22:04)
[2018-08-26] MEDS: Sodium Chloride 0.9% 10 ML Syringe FLUSH PRN ×6 (05:51→22:38)
[2018-08-26] MEDS: Piperacillin/Tazobactam 3.375 GM in Sodium Chloride 0.9% 100 ML IV SCH ×3 (05:51→21:59)
[2018-08-26] MEDS ORDERED: ALENDRONATE SODIUM 70 MG PO SCH (06:00)
[2018-08-26] MEDS: Ondansetron 4 MG Tab.DIS PO PRN (08:54)
[2018-08-26] MEDS: hydrALAZINE 25 MG Tab PO SCH ×2 (10:04→21:04)
[2018-08-26] MEDS: Celecoxib 100 MG Cap PO SCH (10:04)
[2018-08-26] MEDS: Donepezil 10 MG Tab PO SCH (10:04)
[2018-08-26] MEDS: guaiFENesin 600 MG Tab.ER PO SCH ×2 (10:05→21:03)
[2018-08-26] MEDS: BUSPIRONE 10 MG PO SCH ×3 (10:05→21:06)
[2018-08-26] MEDS: Polyvinyl Alcohol 1.4% Ophth Soln 15 ML Bottle EYEBOTH SCH ×3 (10:05→21:17)
[2018-08-26] MEDS: Metoprolol Tartrate 25 MG Tab PO SCH ×2 (10:05→21:02)
[2018-08-26] MEDS: Pantoprazole 40 MG Tab.CR PO SCH (10:05)
[2018-08-26] MEDS: Polyethylene Glycol 3350 Powder 17 GM Packet PO SCH ×2 (10:05→21:05)
[2018-08-26] MEDS: amLODIPine 5 MG Tab PO SCH (10:05)
[2018-08-26] MEDS: Heparin Sodium 5,000 Units/ML Vial SUBCUT SCH ×2 (10:05→21:13)
[2018-08-26] MEDS: Gabapentin 100 MG Cap PO SCH ×4 (10:05→21:04)
[2018-08-26] MEDS: BICALUTAMIDE 50 MG PO SCH (10:05)
[2018-08-26] MEDS: DULoxetine 30 MG Cap PO SCH (10:05)
[2018-08-26] MEDS: CULTURELLE PROBIOTIC PO SCH (10:06)
[2018-08-26] MEDS: CRANBERRY PO SCH (10:06)
[2018-08-26] MEDS: ASCORBIC ACID PO SCH (10:06)
[2018-08-26] MEDS: Cholecalciferol (Vitamin D3) 400 Unit Tab PO SCH ×2 (10:06→21:08)
[2018-08-26] MEDS: Carboxymethylcellulose Sodium 1% Ophth Gel 0.4 ML UD EYEBOTH SCH ×3 (10:06→21:17)
[2018-08-26] MEDS: Ascorbic Acid 500 MG Tab PO SCH ×2 (10:06→21:02)
[2018-08-26] MEDS: Insulin Lispro 100 Units/ML 3 ML Vial SUBCUT SCH ×2 (12:20→17:54)
[2018-08-26] MEDS: METHENAMINE HIPPURATE PO SCH (17:42)
[2018-08-26] MEDS: Micafungin 100 MG in Sodium Chloride 0.9% 100 ML IV SCH (20:44)
[2018-08-26] MEDS: Tamsulosin 0.4 MG Cap.ER PO SCH (21:02)
[2018-08-26] MEDS: Melatonin 3 MG Tab PO SCH (21:07)
[2018-08-26] MEDS: risperiDONE 0.5 MG Tab PO SCH (21:09)
[2018-08-26] MEDS: Insulin Glarg,Human.Rec.Analog 100 UNIT/ML ML SUBCUT SCH (21:51)
[2018-08-27] MEDS: oxyCODONE 5 MG Tab PO SCH ×8 (01:34→21:10)
[2018-08-27] MEDS: Sodium Chloride 0.9% 10 ML Syringe FLUSH PRN ×2 (06:22→07:03)
[2018-08-27] MEDS: Piperacillin/Tazobactam 3.375 GM in Sodium Chloride 0.9% 100 ML IV SCH ×3 (06:22→22:25)
[2018-08-27] MEDS: DULoxetine 30 MG Cap PO SCH ×2 (08:48→12:49)
[2018-08-27] MEDS: hydrALAZINE 25 MG Tab PO SCH ×3 (08:48→20:52)
[2018-08-27] MEDS: Heparin Sodium 5,000 Units/ML Vial SUBCUT SCH ×3 (08:48→20:53)
[2018-08-27] MEDS: Metoprolol Tartrate 25 MG Tab PO SCH ×3 (08:48→21:01)
[2018-08-27] MEDS: Celecoxib 100 MG Cap PO SCH ×2 (08:48→12:54)
[2018-08-27] MEDS: Donepezil 10 MG Tab PO SCH ×2 (08:48→12:54)
[2018-08-27] MEDS: Polyvinyl Alcohol 1.4% Ophth Soln 15 ML Bottle EYEBOTH SCH ×4 (08:48→21:00)
[2018-08-27] MEDS: Polyethylene Glycol 3350 Powder 17 GM Packet PO SCH ×3 (08:48→21:16)
[2018-08-27] MEDS: Ascorbic Acid 500 MG Tab PO SCH ×3 (08:49→21:09)
[2018-08-27] MEDS: CULTURELLE PROBIOTIC PO SCH ×2 (08:49→12:56)
[2018-08-27] MEDS: guaiFENesin 600 MG Tab.ER PO SCH ×3 (08:49→21:03)
[2018-08-27] MEDS: amLODIPine 5 MG Tab PO SCH ×2 (08:49→12:51)
[2018-08-27] MEDS: BUSPIRONE 10 MG PO SCH ×3 (08:49→21:04)
[2018-08-27] MEDS: Gabapentin 100 MG Cap PO SCH ×4 (08:49→21:03)
[2018-08-27] MEDS: BICALUTAMIDE 50 MG PO SCH (08:49)
[2018-08-27] MEDS: Pantoprazole 40 MG Tab.CR PO SCH ×2 (08:49→12:51)
[2018-08-27] MEDS: Cholecalciferol (Vitamin D3) 400 Unit Tab PO SCH ×3 (08:49→21:05)
[2018-08-27] MEDS: Carboxymethylcellulose Sodium 1% Ophth Gel 0.4 ML UD EYEBOTH SCH ×4 (08:49→22:16)
--- NOTE | 2018-08-27 11:49 | PCM.PN ---
- General Info Date of Service: 08/27/18 Admission Dx/Problem (Free Text): Admission Diagnosis/Problem Admission Diagnosis/Problem Abscess Subjective Update: Tj Angela is a 83 y/o M with PMH of chronic pain, prostate radiation, urethral stricture s/p dilatation, frequent UTIs, chronic incontinence of urine , dementia. He recently finished prolonged course of abx with ceftriaxone and micafungin for pelvic abscess and pubic symphysis osteomyelitis, His blood cx had grown strep viridans and abscess grew epifanio glabrata while on abx. For 2 weeks prior to that admissionhe started having right lower abdominal pain and low grade fever. CT scan of the abdomen and pelvis on 08/16/18 showed evidence of abscess formation in the pectineus muscle and also osteomyelitis of the pelvis. [facility] He had Image guided aspiration of a RIGHT upper thigh fluid collection on 08/19, cxs positive for strep species. He was managed for recurrent persistent pelvic abscess and chronicosteomyelitis of the pubic symphysis. ID was consulted and recommended zosyn andMicafungin to complete 6 weeks course. Patient was sent to [facility] to complete antibiotics and also to continue PT/OT. Patient was seen and examined today. No acute events overnight. No chest pain, shortness of breath, fever, chills, nausea, vomiting. Functional Status: Reports: Pain Controlled - Review of Systems General: Reports: No Symptoms HEENT: Reports: No Symptoms Pulmonary: Reports: No Symptoms Cardiovascular: Reports: No Symptoms Gastrointestinal: Reports: No Symptoms Genitourinary: Reports: No Symptoms Musculoskeletal: Reports: No Symptoms Skin: Reports: No Symptoms Neurological: Reports: No Symptoms Psychiatric: Reports: No Symptoms - Patient Data Vitals - Most Recent: Last Vital Signs Temp 98.0 F 08/27/18 08:00 Pulse 65 08/27/18 08:00 Resp 20 08/27/18 08:00 BP 147/58 H 08/27/18 08:00 Pulse Ox 90 L 08/27/18 08:00 Weight - Most Recent: 192 lb 6.4 oz I&O - Last 24 Hours: Intake & Output 08/26/18 08/27/18 08/27/18 22:59 06:59 14:59 Intake Total 650 100 Balance 650 100 Lab Results Last 24 Hours: Laboratory Results - last 24 hr 08/26/18 08/26/18 08/26/18 Range/Units 11:59 17:24 20:53 POC Glucose 125 H 145 H 61 L (83-110) mg/dl 08/26/18 08/27/18 08/27/18 Range/Units 21:40 01:31 07:33 POC Glucose 139 H 130 H 117 H (83-110) mg/dl Med Orders - Current: Current Medications Acetaminophen (Tylenol) 650 mg PO Q4H PRN PRN Reason: Pain (mild 1-3) Amlodipine Besylate (Norvasc) 5 mg PO DAILY [facility] Last Admin: 08/27/18 08:49 Dose: Not Given Artificial Tears (Refresh Celluvisc) 1 each EYEBOTH TID [facility] Last Admin: 08/27/18 08:49 Dose: Not Given Artificial Tears (Liquitears 1.4% Ophth Soln) 0 ml EYEBOTH TID [facility] Last Admin: 08/27/18 08:48 Dose: Not Given Ascorbic Acid (Vitamin C) 500 mg PO BID [facility] Last Admin: 08/27/18 08:49 Dose: Not Given Celecoxib (Celebrex) 100 mg PO DAILY [facility] Last Admin: 08/27/18 08:48 Dose: Not Given Cholecalciferol (Vitamin D3) 1,000 units PO BID [facility] Last Admin: 08/27/18 08:49 Dose: Not Given Dexamethasone (Dexamethasone) 0.5 mg PO DAILY [facility] Last Admin: 08/27/18 08:48 Dose: Not Given Donepezil HCl (Aricept) 10 mg PO DAILY [facility] Last Admin: 08/27/18 08:48 Dose: Not Given Duloxetine HCl (Cymbalta) 90 mg PO DAILY [facility] Last Admin: 08/27/18 08:48 Dose: Not Given Gabapentin (Neurontin) 100 mg PO TID [facility] Last Admin: 08/27/18 08:49 Dose: Not Given Guaifenesin (Mucinex) 600 mg PO BID [facility] Last Admin: 08/27/18 08:49 Dose: Not Given Heparin Sodium (Porcine) (Heparin Sodium) 5,000 units SUBCUT Q12H [facility] Last Admin: 08/27/18 08:48 Dose: Not Given Hydralazine HCl (Apresoline) 50 mg PO Q12HR [facility] Last Admin: 08/27/18 08:48 Dose: Not Given Micafungin Sodium 100 mg/ (Sodium Chloride) 100 mls @ 100 mls/hr IV Q24H [facility] Last Infusion: 08/26/18 21:59 Dose: Infused Piperacillin Sod/Tazobactam (Sod 3.375 gm/ Sodium Chloride) 100 mls @ 200 mls/ hr IV Q8HR [facility] Last Infusion: 08/27/18 07:04 Dose: Infused Insulin Glargine (Lantus) 28 unit SUBCUT BEDTIME [facility] Last Admin: 08/26/18 21:51 Dose: Not Given Insulin Human Lispro (Humalog) 5 unit SUBCUT WITHLUNCH [facility] Last Admin: 08/26/18 12:20 Dose: Not Given Insulin Human Lispro (Humalog) 8 unit SUBCUT ACDINNER [facility] Last Admin: 08/26/18 17:54 Dose: 8 units Magnesium Hydroxide (Milk Of Magnesia) 15 ml PO DAILY PRN PRN Reason: Constipation Melatonin (Melatonin) 6 mg PO BEDTIME [facility] Last Admin: 08/26/18 21:07 Dose: 6 mg Metoprolol Tartrate (Lopressor) 25 mg PO BID [facility] Last Admin: 08/27/18 08:48 Dose: Not Given Alendronate Sodium [ Fosamax] 70mg Own Med 70 mg PO Q7D [facility] Last Admin: 08/26/18 05:56 Dose: 70 mg Non-Formulary Medication (Cranberry [Cranberry]) 500 mg PO BID [facility] Ondansetron HCl (Zofran Odt) 8 mg PO Q8HR PRN PRN Reason: Nausea Last Admin: 08/26/18 08:54 Dose: 8 mg Oxycodone HCl (Oxycodone) 10 mg PO Q4HR [facility] Last Admin: 08/27/18 09:04 Dose: Not Given Pantoprazole Sodium (Protonix) 40 mg PO DAILY [facility] Last Admin: 08/27/18 08:49 Dose: Not Given Bicalutamide [ Casodex] 50 Mg Tab * *Own Med 1 each PO DAILY [facility] Last Admin: 08/27/18 08:49 Dose: Not Given Buspirone [Buspar] 10 Mg Tab Own Med* * 2 each PO TID [facility] Last Admin: 08/27/18 08:49 Dose: Not Given Culturelle Probiotic (1 Cap) 1 each PO DAILY [facility] Last Admin: 08/27/18 08:49 Dose: Not Given Polyethylene Glycol (Miralax) 17 gm PO BID [facility] Last Admin: 08/27/18 08:48 Dose: Not Given Risperidone (Risperidal) 0.25 mg PO BEDTIME [facility] Last Admin: 08/26/18 21:09 Dose: 0.25 mg Senna/Docusate Sodium (Senna Plus) 2 tab PO BID [facility] Last Admin: 08/27/18 08:49 Dose: Not Given Sodium Chloride (Saline Flush) 10 ml FLUSH ASDIRECTED PRN PRN Reason: IV Use Last Admin: 08/27/18 07:03 Dose: 10 ml Tamsulosin HCl (Flomax) 0.4 mg PO BEDTIME [facility] Last Admin: 08/26/18 21:02 Dose: 0.4 mg Discontinued Medications Piperacillin Sod/Tazobactam (Sod 3.375 gm/ Sodium Chloride) 100 mls @ 200 mls/ hr IV Q8H [facility] Last Admin: 08/23/18 17:16 Dose: Not Given Non-Formulary Medication (Methenamine Hippurate [Hiprex]) 1 tab PO BID [facility] Last Admin: 08/26/18 17:42 Dose: Not Given Non-Formulary Medication (Nf Drug) each PO TID [facility] Cranberry Conc/Ascorbic Acid [ Cystex Cranberry] 2 Tab 1 each PO TID [facility] Last Admin: 08/24/18 14:37 Dose: 1 each Cranberry Conc/Ascorbic Acid [ Cystex Cranberry] 2 Tab 2 each PO TID [facility] Last Admin: 08/26/18 10:06 Dose: Not Given Piperacillin Sod/Tazobactam Sod (Zosyn) 3.375 gm IV Q8H [facility] Last Admin: 08/23/18 17:15 Dose: Not Given - Exam General: Alert, Oriented HEENT: Pupils Equal, Pupils Reactive, EOMI, Mucous Membr. Moist/[place] Neck: Supple Lungs: Clear to Auscultation, Normal Respiratory Effort Cardiovascular: Regular Rate, Regular Rhythm GI/Abdominal Exam: Normal Bowel Sounds, Soft, Non-Tender, No Organomegaly, No Distention, No Abnormal Bruit, No Mass, Pelvis Stable (Male) Exam: No Hernia, Normal Inspection, Normal Prostate, Circumcised Back Exam: Normal Inspection, Full Range of Motion Extremities: Normal Inspection, Normal Range of Motion, Non-Tender, No Pedal Edema, Normal Capillary Refill Skin: Warm, Dry, Intact Wound/Incisions: Healing Well Neurological: No New Focal Deficit Psy/Mental Status: Alert, Normal Affect, Normal Mood - Problem List & Annotations (1) Osteomyelitis SNOMED Code(s): 61786828 Code(s): M86.9 - OSTEOMYELITIS, UNSPECIFIED Status: Acute Current Visit: Yes (2) Abscess SNOMED Code(s): 887774381 Code(s): L02.91 - CUTANEOUS ABSCESS, UNSPECIFIED Status: Acute Current Visit: Yes (3) Weakness generalized SNOMED Code(s): 44939214 Code(s): R53.1 - WEAKNESS Status: Acute Current Visit: Yes (4) Chronic pain SNOMED Code(s): 73153111 Code(s): G89.29 - OTHER CHRONIC PAIN Status: Acute Current Visit: No Qualifiers: Chronic pain type: chronic pain syndrome Qualified Code(s): G89.4 - Chronic pain syndrome (5) Diabetes SNOMED Code(s): 25466878 Code(s): E11.9 - TYPE 2 DIABETES MELLITUS WITHOUT COMPLICATIONS Status: Acute Current Visit: No (6) Left groin pain SNOMED Code(s): 916969868 Code(s): R10.32 - LEFT LOWER QUADRANT PAIN Status: Acute Current Visit: No - Problem List Review Problem List Initiated/Reviewed/Updated: Yes - My Orders Last 24 Hours: My Active Orders 08/30/18 06:00 ALANINE AMINOTRANSFERASE,ALT [CHEM] Routine CBC WITH AUTO DIFF [HEME] Routine CREATININE W/GFR [CHEM] Routine CRP [C-REACTIVE PROTEIN] [CHEM] Routine ESR [SEDIMENTATION RATE MANUAL] [HEME] Routine - Plan Plan:: #Recurrent persistent pelvic abscess andchronicosteomyelitis of the pubic symphysis Continue micafungin and Zosyn - To complete 6 weeks course #Acute kidney injury. 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. creatinine has been stable #Dementia with agitation Continue Buspar, Cymbalta, and Risperdal #Prostate cancer/chronic urinary retention -Has h/o retention with intermittent self-catheterization at home. [place] catheter placed - Routine Val[place] care. #Microcytic anemia/anemia of chronic inflammation stable Monitor CBC #Hypertension - BP at goal -continue home medications Monitor blood pressures closely #Diabetes: On insulin at home. Continue NovoLog and Lantus Sliding scale insulin with hypoglycemia protocol Accu-Cheks at mealtime and at bedtime. #Diabetic diet # Full code
[2018-08-27] MEDS: Insulin Lispro 100 Units/ML 3 ML Vial SUBCUT SCH ×2 (13:01→18:15)
[2018-08-27 13:33] LABS: ANION GAP 13.6
--- NOTE | 2018-08-27 14:41 | CR ---
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 INTERPRETATION: Upright AP portable chest confirms long-arm catheter on the right with the tip in the region of the superior vena cava (mediastinum). Normal cardiac silhouette without cephalization of vascular flow, signs of alveolar edema or dependent pleural fluid accumulation (effusion). No new lung mass, hilar lymphadenopathy or focal lobar consolidation when compared to CT exam 24 July 2018. No pneumothorax or pneumomediastinum. CONCLUSION: No acute new cardiopulmonary abnormality.
[2018-08-27] MEDS: Insulin Glarg,Human.Rec.Analog 100 UNIT/ML ML SUBCUT SCH (20:58)
[2018-08-27] MEDS: Melatonin 3 MG Tab PO SCH (21:02)
[2018-08-27] MEDS: CYSTEX PO SCH (21:04)
[2018-08-27] MEDS: Tamsulosin 0.4 MG Cap.ER PO SCH (21:08)
[2018-08-27] MEDS: risperiDONE 0.5 MG Tab PO SCH (21:09)
[2018-08-27] MEDS: Micafungin 100 MG in Sodium Chloride 0.9% 100 ML IV SCH (21:22)
[2018-08-27] MEDS ORDERED: Diazepam 5 MG Tab PO ONE ×2 (22:59→23:01)
[2018-08-28] MEDS: oxyCODONE 5 MG Tab PO SCH ×5 (04:31→18:02)
[2018-08-28] MEDS: Piperacillin/Tazobactam 3.375 GM in Sodium Chloride 0.9% 100 ML IV SCH ×2 (05:29→14:40)
[2018-08-28] MEDS: Polyethylene Glycol 3350 Powder 17 GM Packet PO SCH ×2 (08:23→21:30)
[2018-08-28] MEDS: Polyvinyl Alcohol 1.4% Ophth Soln 15 ML Bottle EYEBOTH SCH ×2 (08:23→13:23)
[2018-08-28] MEDS: Carboxymethylcellulose Sodium 1% Ophth Gel 0.4 ML UD EYEBOTH SCH ×2 (08:24→15:10)
[2018-08-28] MEDS: CRANBERRY 500 MG PO SCH ×5 (09:15→09:30)
[2018-08-28] MEDS: Celecoxib 100 MG Cap PO SCH (09:16)
[2018-08-28] MEDS: Ascorbic Acid 500 MG Tab PO SCH (09:16)
[2018-08-28] MEDS: Donepezil 10 MG Tab PO SCH (09:16)
[2018-08-28] MEDS: Cholecalciferol (Vitamin D3) 400 Unit Tab PO SCH (09:17)
[2018-08-28] MEDS: guaiFENesin 600 MG Tab.ER PO SCH (09:17)
[2018-08-28] MEDS: Metoprolol Tartrate 25 MG Tab PO SCH (09:17)
[2018-08-28] MEDS: hydrALAZINE 25 MG Tab PO SCH (09:17)
[2018-08-28] MEDS: Pantoprazole 40 MG Tab.CR PO SCH (09:17)
[2018-08-28] MEDS: DULoxetine 30 MG Cap PO SCH (09:17)
[2018-08-28] MEDS: amLODIPine 5 MG Tab PO SCH (09:17)
[2018-08-28] MEDS: Gabapentin 100 MG Cap PO SCH ×2 (09:17→15:19)
[2018-08-28] MEDS: BUSPIRONE 10 MG PO SCH ×2 (09:20→15:19)
[2018-08-28] MEDS: Heparin Sodium 5,000 Units/ML Vial SUBCUT SCH (09:21)
[2018-08-28] MEDS: CYSTEX PO SCH ×2 (09:21→15:19)
[2018-08-28] MEDS: BICALUTAMIDE 50 MG PO SCH (09:22)
[2018-08-28] MEDS: CULTURELLE PROBIOTIC PO SCH (09:22)
[2018-08-28] MEDS: Insulin Lispro 100 Units/ML 3 ML Vial SUBCUT SCH ×2 (12:27→18:03)
[2018-08-28] MEDS: Ondansetron 4 MG Tab.DIS PO PRN (12:30)
[2018-08-28] MEDS: Insulin Glarg,Human.Rec.Analog 100 UNIT/ML ML SUBCUT SCH (23:21)
[2018-08-28] MEDS ORDERED: Insulin Glarg,Human.Rec.Analog 100 UNIT/ML ML SUBCUT ONE (23:22)
[2018-08-28] MEDS: Micafungin 100 MG in Sodium Chloride 0.9% 100 ML IV SCH (23:26)
[2018-08-29] MEDS: Piperacillin/Tazobactam 3.375 GM in Sodium Chloride 0.9% 100 ML IV SCH ×4 (00:29→22:20)
[2018-08-29] MEDS: Sodium Chloride 0.9% 10 ML Syringe FLUSH PRN ×4 (00:30→22:51)
[2018-08-29] MEDS: oxyCODONE 5 MG Tab PO SCH ×7 (03:30→22:54)
[2018-08-29] MEDS: risperiDONE 0.5 MG Tab PO SCH ×2 (05:01→20:51)
[2018-08-29] MEDS: Cholecalciferol (Vitamin D3) 400 Unit Tab PO SCH ×2 (05:01→11:05)
[2018-08-29] MEDS: Ascorbic Acid 500 MG Tab PO SCH ×2 (05:01→11:05)
[2018-08-29] MEDS: guaiFENesin 600 MG Tab.ER PO SCH ×3 (05:02→20:51)
[2018-08-29] MEDS: CYSTEX PO SCH ×3 (05:02→13:33)
[2018-08-29] MEDS: Gabapentin 100 MG Cap PO SCH ×4 (05:02→20:51)
[2018-08-29] MEDS: BUSPIRONE 10 MG PO SCH ×3 (05:02→13:33)
[2018-08-29] MEDS: Carboxymethylcellulose Sodium 1% Ophth Gel 0.4 ML UD EYEBOTH SCH ×3 (05:02→13:33)
[2018-08-29] MEDS: Melatonin 3 MG Tab PO SCH (05:03)
[2018-08-29] MEDS: Polyvinyl Alcohol 1.4% Ophth Soln 15 ML Bottle EYEBOTH SCH ×3 (05:03→13:33)
[2018-08-29] MEDS: Tamsulosin 0.4 MG Cap.ER PO SCH ×2 (05:03→20:50)
[2018-08-29] MEDS: Metoprolol Tartrate 25 MG Tab PO SCH ×3 (05:03→20:49)
[2018-08-29] MEDS: CRANBERRY 500 MG PO SCH ×2 (05:03→11:04)
[2018-08-29] MEDS: hydrALAZINE 25 MG Tab PO SCH ×3 (05:04→20:50)
[2018-08-29] MEDS: Ondansetron 4 MG Tab.DIS PO PRN (09:13)
[2018-08-29] MEDS: amLODIPine 5 MG Tab PO SCH (10:59)
[2018-08-29] MEDS: Celecoxib 100 MG Cap PO SCH (11:00)
[2018-08-29] MEDS: Donepezil 10 MG Tab PO SCH (11:04)
[2018-08-29] MEDS: DULoxetine 30 MG Cap PO SCH (11:04)
[2018-08-29] MEDS: Polyethylene Glycol 3350 Powder 17 GM Packet PO SCH ×2 (11:05→20:50)
[2018-08-29] MEDS: CULTURELLE PROBIOTIC PO SCH (11:05)
[2018-08-29] MEDS: BICALUTAMIDE 50 MG PO SCH (11:05)
[2018-08-29] MEDS: Pantoprazole 40 MG Tab.CR PO SCH (11:05)
[2018-08-29] MEDS: Insulin Lispro 100 Units/ML 3 ML Vial SUBCUT SCH ×2 (13:03→17:49)
[2018-08-29] MEDS: Micafungin 100 MG in Sodium Chloride 0.9% 100 ML IV SCH (20:44)
[2018-08-29] MEDS: Insulin Glarg,Human.Rec.Analog 100 UNIT/ML ML SUBCUT SCH (21:02)
[2018-08-30] MEDS: oxyCODONE 5 MG Tab PO SCH ×6 (03:17→22:07)
[2018-08-30] MEDS: Sodium Chloride 0.9% 10 ML Syringe FLUSH PRN ×3 (06:04→14:30)
[2018-08-30] MEDS: Piperacillin/Tazobactam 3.375 GM in Sodium Chloride 0.9% 100 ML IV SCH ×3 (06:05→22:03)
[2018-08-30] MEDS: Polyethylene Glycol 3350 Powder 17 GM Packet PO SCH ×2 (09:03→22:04)
[2018-08-30] MEDS: DULoxetine 30 MG Cap PO SCH (09:03)
[2018-08-30] MEDS: guaiFENesin 600 MG Tab.ER PO SCH ×2 (09:03→22:08)
[2018-08-30] MEDS: Celecoxib 100 MG Cap PO SCH (09:03)
[2018-08-30] MEDS: Pantoprazole 40 MG Tab.CR PO SCH (09:03)
[2018-08-30] MEDS: Gabapentin 100 MG Cap PO SCH ×3 (09:03→22:11)
[2018-08-30] MEDS: hydrALAZINE 25 MG Tab PO SCH ×2 (09:05→22:05)
[2018-08-30] MEDS: Metoprolol Tartrate 25 MG Tab PO SCH ×2 (09:05→22:06)
[2018-08-30] MEDS: amLODIPine 5 MG Tab PO SCH (09:05)
[2018-08-30 11:11] LABS: ANION GAP 13.2
[2018-08-30] MEDS: Insulin Lispro 100 Units/ML 3 ML Vial SUBCUT SCH ×2 (12:18→17:59)
[2018-08-30] MEDS: Tamsulosin 0.4 MG Cap.ER PO SCH (22:06)
[2018-08-30] MEDS: Insulin Glarg,Human.Rec.Analog 100 UNIT/ML ML SUBCUT SCH (22:08)
[2018-08-30] MEDS: risperiDONE 0.5 MG Tab PO SCH (22:10)
[2018-08-30] MEDS: Diazepam 2 MG Tab PO PRN (22:18)
[2018-08-30] MEDS: Micafungin 100 MG in Sodium Chloride 0.9% 100 ML IV SCH (22:33)
[2018-08-31] MEDS: oxyCODONE 5 MG Tab PO SCH ×6 (02:08→22:03)
[2018-08-31] MEDS: Piperacillin/Tazobactam 3.375 GM in Sodium Chloride 0.9% 100 ML IV SCH ×3 (06:02→22:01)
[2018-08-31] MEDS: hydrALAZINE 25 MG Tab PO SCH ×2 (09:23→22:09)
[2018-08-31] MEDS: Celecoxib 100 MG Cap PO SCH (09:23)
[2018-08-31] MEDS: DULoxetine 30 MG Cap PO SCH (09:23)
[2018-08-31] MEDS: Gabapentin 100 MG Cap PO SCH ×3 (09:24→22:09)
[2018-08-31] MEDS: amLODIPine 5 MG Tab PO SCH (09:24)
[2018-08-31] MEDS: Pantoprazole 40 MG Tab.CR PO SCH (09:24)
[2018-08-31] MEDS: guaiFENesin 600 MG Tab.ER PO SCH ×2 (09:24→22:06)
[2018-08-31] MEDS: Polyethylene Glycol 3350 Powder 17 GM Packet PO SCH ×2 (09:24→22:02)
[2018-08-31] MEDS: Metoprolol Tartrate 25 MG Tab PO SCH ×2 (09:24→22:08)
[2018-08-31] MEDS: Insulin Lispro 100 Units/ML 3 ML Vial SUBCUT SCH ×2 (12:53→17:38)
[2018-08-31] MEDS: risperiDONE 0.5 MG Tab PO SCH (22:04)
[2018-08-31] MEDS: Tamsulosin 0.4 MG Cap.ER PO SCH (22:05)
[2018-08-31] MEDS: Insulin Glarg,Human.Rec.Analog 100 UNIT/ML ML SUBCUT SCH (22:13)
[2018-08-31] MEDS: Micafungin 100 MG in Sodium Chloride 0.9% 100 ML IV SCH (22:35)
[2018-09-01] MEDS: oxyCODONE 5 MG Tab PO SCH ×7 (04:06→22:40)
[2018-09-01] MEDS: Piperacillin/Tazobactam 3.375 GM in Sodium Chloride 0.9% 100 ML IV SCH ×3 (05:39→22:04)
[2018-09-01] MEDS: DULoxetine 30 MG Cap PO SCH (08:40)
[2018-09-01] MEDS: Polyethylene Glycol 3350 Powder 17 GM Packet PO SCH ×2 (08:40→20:19)
[2018-09-01] MEDS: Celecoxib 100 MG Cap PO SCH (08:41)
[2018-09-01] MEDS: guaiFENesin 600 MG Tab.ER PO SCH ×2 (08:41→20:21)
[2018-09-01] MEDS: Gabapentin 100 MG Cap PO SCH ×3 (08:41→20:20)
[2018-09-01] MEDS: Pantoprazole 40 MG Tab.CR PO SCH (08:41)
[2018-09-01] MEDS: amLODIPine 5 MG Tab PO SCH (08:41)
[2018-09-01] MEDS: Metoprolol Tartrate 25 MG Tab PO SCH ×2 (08:41→20:23)
[2018-09-01] MEDS: hydrALAZINE 25 MG Tab PO SCH ×2 (08:42→20:23)
[2018-09-01] MEDS: Insulin Lispro 100 Units/ML 3 ML Vial SUBCUT SCH ×2 (12:32→17:29)
[2018-09-01] MEDS: Sodium Chloride 0.9% 10 ML Syringe FLUSH PRN (14:13)
[2018-09-01] MEDS: Diazepam 2 MG Tab PO PRN (20:04)
[2018-09-01] MEDS: Tamsulosin 0.4 MG Cap.ER PO SCH (20:22)
[2018-09-01] MEDS: risperiDONE 0.5 MG Tab PO SCH (20:22)
[2018-09-01] MEDS: Insulin Glarg,Human.Rec.Analog 100 UNIT/ML ML SUBCUT SCH (20:32)
[2018-09-01] MEDS ORDERED: Haloperidol Lactate 5 MG/ML SDV IM ONE (21:55)
[2018-09-01] MEDS: Micafungin 100 MG in Sodium Chloride 0.9% 100 ML IV SCH (22:33)
[2018-09-01] MEDS ORDERED: LORazepam 2 MG/ML Syringe IM ONE (23:07)
[2018-09-01] MEDS ORDERED: LORazepam 2 MG/ML Syringe ONE (23:12)
[2018-09-02] MEDS: oxyCODONE 5 MG Tab PO SCH ×3 (02:17→10:35)
[2018-09-02] MEDS: Piperacillin/Tazobactam 3.375 GM in Sodium Chloride 0.9% 100 ML IV SCH (05:53)
[2018-09-02 08:38] VITALS: BP 165/80
--- NOTE | 2018-09-02 10:24 | PCM.DCSUM1 ---
Discharge Summary - Hospital Course Free Text/Narrative:: Tj Angela is a 83 y/o M with PMH of chronic pain, prostate radiation, urethral stricture s/p dilatation, frequent UTIs, chronic incontinence of urine , dementia. He recently finished prolonged course of abx with ceftriaxone and micafungin for pelvic abscess and pubic symphysis osteomyelitis, His blood cx had grown strep viridans and abscess grew epifanio glabrata while on abx. For 2 weeks prior to that admissionhe started having right lower abdominal pain and low grade fever. CT scan of the abdomen and pelvis on 08/16/18 showed evidence of abscess formation in the pectineus muscle and also osteomyelitis of the pelvis. [facility] Image guided aspiration of a RIGHT upper thigh fluid collection on 08/19, cxs positive for strep species. He was managed for recurrent persistent pelvic abscess and chronicosteomyelitis of the pubic symphysis. ID was consulted and recommended zosyn andMicafungin to complete 6 weeks course. Patient was sent to [facility] to complete antibiotics and also to continue PT/OT. following the IV course will be discharged on oral fluconazole and augmentin f.up [facility] ID on 09/10/18 Diagnosis: Stroke: No - Discharge Data Discharge Date: 09/02/18 Discharge Disposition: Home, Self-Care 01 Condition: Good - Discharge Diagnosis/Problem(s) (1) Abscess SNOMED Code(s): 355602199 ICD Code: L02.91 - CUTANEOUS ABSCESS, UNSPECIFIED Status: Acute Current Visit: Yes (2) Dementia SNOMED Code(s): 83309730 ICD Code: F03.90 - UNSPECIFIED DEMENTIA WITHOUT BEHAVIORAL DISTURBANCE Status: Acute Current Visit: No - Patient Summary/Data Consults: Consultations 08/23/18 14:13 OT Evaluation and Treatment [CONS] Routine PT Evaluation and Treatment [CONS] Routine - Patient Instructions Diet: Usual Diet as Tolerated Activity: As Tolerated - Discharge Plan *PRESCRIPTION DRUG MONITORING PROGRAM REVIEWED*: Not Applicable *COPY OF PRESCRIPTION DRUG MONITORING REPORT IN PATIENT ASHLEY: Not Applicable Prescriptions/Med Rec: Amoxicillin/Clavulanate K [Augmentin 500-125 MG] 1 tab PO TID #21 tab Fluconazole 100 mg PO DAILY #9 tablet Home Medications: Home Meds Tamsulosin [Flomax] 0.4 mg PO BEDTIME 10/03/13 [History] Acetaminophen [Tylenol] 650 mg PO Q6H PRN 11/09/17 [History] Dexamethasone 0.5 mg PO DAILY 11/09/17 [History] Gabapentin [Neurontin] 100 mg PO TID 11/09/17 [History] Celecoxib [CeleBREX] 100 mg PO DAILY 05/23/18 [History] DULoxetine [Cymbalta] 90 mg PO DAILY 05/23/18 [History] Insulin Aspart [NovoLOG] 5 unit SQ WITHLUNCH 05/23/18 [History] Insulin Aspart [NovoLOG] 8 unit SQ ACDINNER 05/23/18 [History] Insulin Glarg,Human.Rec.Analog [Lantus] 28 units SQ BEDTIME 05/23/18 [History] Magnesium Hydroxide [Milk of Magnesia] 15 ml PO DAILY PRN 05/23/18 [History] Ondansetron [Zofran ODT] 8 mg PO Q8HR PRN 05/23/18 [History] Pantoprazole Sodium [Protonix] 40 mg PO DAILY 05/23/18 [History] Polyethylene Glycol 3350 [MiraLAX] 17 gm PO BID 05/23/18 [History] Sennosides/Docusate Sodium [Senna Laxative Tablet] 2 each PO BID 05/23/18 [ History] oxyCODONE HCl [Oxycodone HCl] 10 mg PO Q6H 05/23/18 [History] risperiDONE [Risperdal] 0.25 mg PO BEDTIME 05/23/18 [History] Metoprolol Tartrate 25 mg PO BID 08/23/18 [History] amLODIPine [Norvasc] 5 mg PO DAILY 08/23/18 [History] hydrALAZINE [Apresoline] 50 mg PO Q12HR 08/23/18 [History] guaiFENesin [Mucinex] 600 mg PO BID 08/24/18 [History] Amoxicillin/Clavulanate K [Augmentin 500-125 MG] 1 tab PO TID #21 tab 09/02/18 [ Rx] Fluconazole 100 mg PO DAILY #9 tablet 09/02/18 [Rx] diazePAM [Valium] 2 mg PO BEDTIME PRN tablet 09/02/18 [Rx] - Discharge Summary/Plan Comment DC Time >30 min.: No - General Info Date of Service: 09/02/18 - Review of Systems General: Denies: Fever, Weakness Pulmonary: Denies: Shortness of Breath Gastrointestinal: Denies: Abdominal Pain Genitourinary: Denies: Dysuria Neurological: Reports: Confusion - Patient Data Vitals - Most Recent: Last Vital Signs Temp 36.4 C 09/02/18 08:36 Pulse 67 09/02/18 08:36 Resp 20 09/02/18 08:36 BP 165/80 H 09/02/18 08:36 Pulse Ox 96 09/02/18 08:36 Weight - Most Recent: 90.446 kg I&O - Last 24 hours: Intake & Output 09/01/18 09/02/18 09/02/18 22:59 06:59 14:59 Intake Total 4560 150 Balance 4560 150 Lab Results - Last 24 hrs: Laboratory Results - last 24 hr 09/01/18 09/01/18 09/01/18 Range/Units 11:27 17:07 20:11 POC Glucose 138 H 116 H 132 H (83-110) mg/dl 09/02/18 Range/Units 07:51 POC Glucose 105 (83-110) mg/dl Med Orders - Current: Current Medications Acetaminophen (Tylenol) 650 mg PO Q4H PRN PRN Reason: Pain (mild 1-3) Amlodipine Besylate (Norvasc) 5 mg PO DAILY [facility] Last Admin: 09/01/18 08:41 Dose: 5 mg Celecoxib (Celebrex) 100 mg PO DAILY [facility] Last Admin: 09/01/18 08:41 Dose: 100 mg Dexamethasone (Dexamethasone) 0.5 mg PO DAILY [facility] Last Admin: 09/01/18 08:41 Dose: 0.5 mg Diazepam (Valium) 2 mg PO BEDTIME PRN PRN Reason: Sleep Last Admin: 09/01/18 20:04 Dose: 2 mg Duloxetine HCl (Cymbalta) 90 mg PO DAILY [facility] Last Admin: 09/01/18 08:40 Dose: 90 mg Gabapentin (Neurontin) 100 mg PO TID [facility] Last Admin: 09/01/18 20:20 Dose: 100 mg Guaifenesin (Mucinex) 600 mg PO BID [facility] Last Admin: 09/01/18 20:21 Dose: 600 mg Hydralazine HCl (Apresoline) 50 mg PO Q12HR [facility] Last Admin: 09/01/18 20:23 Dose: 50 mg Micafungin Sodium 100 mg/ (Sodium Chloride) 100 mls @ 100 mls/hr IV Q24H [facility] Last Admin: 09/01/18 22:33 Dose: 100 mls/hr Piperacillin Sod/Tazobactam (Sod 3.375 gm/ Sodium Chloride) 100 mls @ 200 mls/ hr IV Q8HR [facility] Last Admin: 09/02/18 05:53 Dose: 200 mls/hr Insulin Glargine (Lantus) 28 unit SUBCUT BEDTIME [facility] Last Admin: 09/01/18 20:32 Dose: Not Given Insulin Human Lispro (Humalog) 5 unit SUBCUT WITHLUNCH [facility] Last Admin: 09/01/18 12:32 Dose: 5 units Insulin Human Lispro (Humalog) 8 unit SUBCUT ACDINNER [facility] Last Admin: 09/01/18 17:29 Dose: Not Given Magnesium Hydroxide (Milk Of Magnesia) 15 ml PO DAILY PRN PRN Reason: Constipation Metoprolol Tartrate (Lopressor) 25 mg PO BID [facility] Last Admin: 09/01/18 20:23 Dose: 25 mg Ondansetron HCl (Zofran Odt) 8 mg PO Q8HR PRN PRN Reason: Nausea Last Admin: 08/29/18 09:13 Dose: 8 mg Oxycodone HCl (Oxycodone) 10 mg PO Q4HR [facility] Last Admin: 09/02/18 05:54 Dose: 10 mg Pantoprazole Sodium (Protonix) 40 mg PO DAILY [facility] Last Admin: 09/01/18 08:41 Dose: 40 mg Polyethylene Glycol (Miralax) 17 gm PO BID [facility] Last Admin: 09/01/18 20:19 Dose: 17 gm Risperidone (Risperidal) 0.25 mg PO BEDTIME [facility] Last Admin: 09/01/18 20:22 Dose: 0.25 mg Senna/Docusate Sodium (Senna Plus) 2 tab PO BID [facility] Last Admin: 09/01/18 20:19 Dose: 2 tab Sodium Chloride (Saline Flush) 10 ml FLUSH ASDIRECTED PRN PRN Reason: IV Use Last Admin: 09/01/18 14:13 Dose: 10 ml Tamsulosin HCl (Flomax) 0.4 mg PO BEDTIME [facility] Last Admin: 09/01/18 20:22 Dose: 0.4 mg Discontinued Medications Artificial Tears (Refresh Celluvisc) 1 each EYEBOTH TID [facility] Last Admin: 08/29/18 13:33 Dose: Not Given Artificial Tears (Liquitears 1.4% Ophth Soln) 0 ml EYEBOTH TID [facility] Last Admin: 08/29/18 13:33 Dose: Not Given Ascorbic Acid (Vitamin C) 500 mg PO BID [facility] Last Admin: 08/29/18 11:05 Dose: Not Given Cholecalciferol (Vitamin D3) 1,000 units PO BID [facility] Last Admin: 08/29/18 11:05 Dose: Not Given Diazepam (Valium.) 2.5 mg PO ONETIME ONE Stop: 08/27/18 23:00 Last Admin: 08/28/18 04:45 Dose: 2.5 mg Diazepam (Valium.) 2.5 mg PO ONETIME ONE Stop: 08/27/18 23:02 Last Admin: 08/28/18 05:02 Dose: Not Given Donepezil HCl (Aricept) 10 mg PO DAILY [facility] Last Admin: 08/29/18 11:04 Dose: Not Given Haloperidol Lactate (Haldol) 4 mg IM ONETIME ONE Stop: 09/01/18 21:56 Last Admin: 09/01/18 22:02 Dose: 4 mg Heparin Sodium (Porcine) (Heparin Sodium) 5,000 units SUBCUT Q12H [facility] Last Admin: 08/28/18 09:21 Dose: 5,000 units Piperacillin Sod/Tazobactam (Sod 3.375 gm/ Sodium Chloride) 100 mls @ 200 mls/ hr IV Q8H [facility] Last Admin: 08/23/18 17:16 Dose: Not Given Insulin Glargine (Lantus) 14 unit SUBCUT ONETIME ONE Stop: 08/28/18 23:23 Last Admin: 08/29/18 00:12 Dose: 14 units Lorazepam (Ativan) 2 mg IM ONETIME ONE Stop: 09/01/18 23:08 Last Admin: 09/01/18 23:16 Dose: 2 mg Lorazepam (Ativan) Confirm Administered Dose 2 mg .ROUTE .STK-MED ONE Stop: 09/01/18 23:13 Last Admin: 09/01/18 23:18 Dose: Not Given Melatonin (Melatonin) 6 mg PO BEDTIME [facility] Last Admin: 08/29/18 05:03 Dose: Not Given Alendronate Sodium [ Fosamax] 70mg Own Med 70 mg PO Q7D [facility] Last Admin: 08/26/18 05:56 Dose: 70 mg Cranberry 500 Mg (Non-Formulary Med) 0 mg PO BID [facility] Last Admin: 08/29/18 11:04 Dose: Not Given Non-Formulary Medication (Methenamine Hippurate [Hiprex]) 1 tab PO BID [facility] Last Admin: 08/26/18 17:42 Dose: Not Given Non-Formulary Medication (Nf Drug) each PO TID [facility] Patient Own Cystex (Tablet) 1 each PO TID [facility] Last Admin: 08/29/18 13:33 Dose: Not Given Bicalutamide [ Casodex] 50 Mg Tab * *Own Med 1 each PO DAILY [facility] Last Admin: 08/29/18 11:05 Dose: Not Given Buspirone [Buspar] 10 Mg Tab Own Med* * 2 each PO TID [facility] Last Admin: 08/29/18 13:33 Dose: Not Given Cranberry Conc/Ascorbic Acid [ Cystex Cranberry] 2 Tab 1 each PO TID [facility] Last Admin: 08/24/18 14:37 Dose: 1 each Culturelle Probiotic (1 Cap) 1 each PO DAILY [facility] Last Admin: 08/29/18 11:05 Dose: Not Given Cranberry Conc/Ascorbic Acid [ Cystex Cranberry] 2 Tab 2 each PO TID [facility] Last Admin: 08/26/18 10:06 Dose: Not Given Piperacillin Sod/Tazobactam Sod (Zosyn) 3.375 gm IV Q8H [facility] Last Admin: 08/23/18 17:15 Dose: Not Given - Exam General: Reports: Alert, Oriented Neck: Reports: Supple Lungs: Reports: Clear to Auscultation, Normal Respiratory Effort Cardiovascular: Reports: Regular Rate, Regular Rhythm GI/Abdominal Exam: Normal Bowel Sounds, Soft, Non-Tender
[2018-09-02] MEDS: hydrALAZINE 25 MG Tab PO SCH (10:34)
[2018-09-02] MEDS: Polyethylene Glycol 3350 Powder 17 GM Packet PO SCH (10:34)
[2018-09-02] MEDS: Metoprolol Tartrate 25 MG Tab PO SCH (10:34)
[2018-09-02] MEDS: Celecoxib 100 MG Cap PO SCH (10:34)
[2018-09-02] MEDS: DULoxetine 30 MG Cap PO SCH (10:35)
[2018-09-02] MEDS: guaiFENesin 600 MG Tab.ER PO SCH (10:35)
[2018-09-02] MEDS: amLODIPine 5 MG Tab PO SCH (10:35)
[2018-09-02] MEDS: Pantoprazole 40 MG Tab.CR PO SCH (10:35)
[2018-09-02] MEDS: Gabapentin 100 MG Cap PO SCH (10:35)
[2018-09-02] MEDS: Insulin Lispro 100 Units/ML 3 ML Vial SUBCUT SCH (12:15)
== END 2018-09-02 13:00 | disposition home or self-care (01) | DRG 638 ==
LOC: DL.MS 10:56 → UNDOADMIN 10:56 → DL.MS 13:41
PROVIDERS: ADMIT Student in an Organized Health Care Education/Training Program; ATTEND Internal Medicine
DX: E11.69 Type 2 diabetes mellitus with other specified complication (principal); L02.818 Cutaneous abscess of other sites; M86.68 Other chronic osteomyelitis, other site; N12 Tubulo-interstitial nephritis, not specified as acute or chronic; N17.9 Acute kidney failure, unspecified; G89.29 Other chronic pain; R32 Unspecified urinary incontinence; B95.4 Other streptococcus as the cause of diseases classified elsewhere; B96.89 Other specified bacterial agents as the cause of diseases classified elsewhere; H54.7 Unspecified visual loss; E78.00 Pure hypercholesterolemia, unspecified; K59.09 Other constipation; K21.9 Gastro-esophageal reflux disease without esophagitis; N40.0 Benign prostatic hyperplasia without lower urinary tract symptoms; M54.9 Dorsalgia, unspecified; G30.9 Alzheimer's disease, unspecified; F02.80 Dementia in other diseases classified elsewhere, unspecified severity, without behavioral disturbance, psychotic disturbance, mood disturbance, and anxiety; F41.9 Anxiety disorder, unspecified; F32.9 Major depressive disorder, single episode, unspecified; T50.8X5A Adverse effect of diagnostic agents, initial encounter; R45.1 Restlessness and agitation; Z92.21 Personal history of antineoplastic chemotherapy; D50.9 Iron deficiency anemia, unspecified; D63.8 Anemia in other chronic diseases classified elsewhere; I10 Essential (primary) hypertension; N40.1 Benign prostatic hyperplasia with lower urinary tract symptoms; R33.8 Other retention of urine; Z87.440 Personal history of urinary (tract) infections; Z88.5 Allergy status to narcotic agent; Z88.8 Allergy status to other drugs, medicaments and biological substances; Z79.4 Long term (current) use of insulin; Z79.899 Other long term (current) drug therapy; Z98.49 Cataract extraction status, unspecified eye; Z96.641 Presence of right artificial hip joint; Z87.891 Personal history of nicotine dependence; Z85.46 Personal history of malignant neoplasm of prostate; E11.21 Type 2 diabetes mellitus with diabetic nephropathy
CPT/HCPCS: 36415; 71045; 80048; 82962; 83735; 83880; 84100; 84460; 85025; 85027; 85651; 86140; 97110-GO; 97116-GP; 97162-GP; 97165-GO; 97530-GO; A9270-GY; J1630; J1644; J1815; J1815-GY; J2060; J2248; J2543; J7050; J8540